=== PATIENT | male | born 1955 | race Caucasian/White ===

== ENCOUNTER 2020-06-22 08:35 | Outpatient (REF) | payer OTHER, SELFPAY ==
[2020-06-22 09:37] LABS: MANUAL DIFF FLAG NO
[2020-06-22 09:44] LABS: Basophils Absolute Auto 0.1 X10*3/uL (0.0-0.2); Basophils Percent Auto 1.2 % (0-2); Eosinophils Absolute Auto 0.3 X10*3/uL (0.0-0.4); Eosinophils Percent Auto 3.3 % (0-4); Hematocrit 45.8 % (42-52); Hemoglobin 14.2 g/dl (14.0-18.0); Imm Gran Abs Auto 0.02 X10*3/uL (0.00-0.03); Imm Gran Pct Auto 0.2 % (0.0-0.4); Lymphocytes Absolute Auto 1.9 X10*3/uL (1.2-4.9); Lymphocytes Percent Auto 22.5 % (20-40); Mean Corpuscular Hemoglobin 27.3 pg (27.0-33.0); Mean Corpuscular Volume 88.1 fL (80-98); Mean Platelet Volume 9.5 fL (9.4-12.4); Monocytes Absolute Auto 0.8 X10*3/uL (0.1-1.2); Monocytes Percent Auto 9.3 % (2-11); Neutrophils Absolute Auto 5.4 X10*3/uL (2.0-8.3); Neutrophils Percent Auto 63.5 % (45-73); Platelet Count 361 X10*3/uL (160-400); White Blood Count 8.6 X10*3/uL (4.8-10.8)
[2020-06-22 10:04] LABS: Glucose Urine UA NEG (NEG); Leukocyte Esterase Urine NEG (NEG); Nitrite Urine NEG (NEG); Specific Gravity - Urine >= 1.030 (1.005-1.025); Urine Blood TRACE (NEG); Urine Ketones NEG (NEG); Urine Protein 2+ MG/DL (NEG-TRACE)
[2020-06-22 10:10] LABS: Appearance Urine CLEAR; Color Urine YELLOW
[2020-06-22 10:12] LABS: Alanine Aminotransferase 42 U/L (0-40); Albumin Level 3.6 g/dL (3.5-5.0); Alkaline Phosphatase 95 U/L (39-117); Anion Gap 11 (12-20); Aspartate Amino Transferase 45 U/L (5-37); Bilirubin Total 0.4 mg/dL (0.0-1.0); Blood Urea Nitrogen 8 mg/dL (9-16); Calcium 8.8 mg/dL (8.4-10.2); Carbon Dioxide 24 mmol/L (22-29); Chloride 108 mmol/L (96-108); Cholesterol 223 mg/dL; Estimated Glomerular Filt Rate > 60; Glucose Fasting 99 mg/dL (60-99); HDL Cholesterol 58 mg/dL; LDL Cholesterol Calculated 113 mg/dl; Potassium 4.4 mmol/L (3.3-5.1); Sodium 139 mmol/L (135-145); Total Protein 6.6 g/dL (6.5-8.0); Triglycerides 264 mg/dL
[2020-06-22 10:58] LABS: RBC Urine 0 /HPF (0); WBC Urine 0-2 /HPF (0-4)
[2020-06-22 11:18] LABS: Vitamin B12 148 pg/mL (200-900)
== END 2020-06-22 08:36 | disposition home or self-care (01) ==
LOC: HO.LAB 08:35
PROVIDERS: Visit Provider Internal Medicine
DX: I10 Essential (primary) hypertension (principal); R41.89 Other symptoms and signs involving cognitive functions and awareness; I63.512 Cerebral infarction due to unspecified occlusion or stenosis of left middle cerebral artery; F17.200 Nicotine dependence, unspecified, uncomplicated; E78.00 Pure hypercholesterolemia, unspecified
CPT/HCPCS: 36415; 80053; 80061; 81001; 81003; 82607; 82746; 84443; 85025

== ENCOUNTER 2022-10-20 17:23 | Inpatient (IN) | payer MEDICARE, MEDICAID, SELFPAY ==
--- NOTE | ~2022-10-20 | CT_ITS ---
EXAMINATION: CT HEAD WITHOUT CONTRAST CT CERVICAL SPINE WITHOUT CONTRAST CLINICAL INFORMATION: Fall. COMPARISON: No prior imaging. TECHNIQUE: Greenhouse Assistant images were obtained. CT imaging of the head and cervical spine was performed without contrast. Data was reformatted into multiplanar images at the acquisition workstation. This CT examination was performed using dose optimization techniques as appropriate, including one or more of the following: Automated exposure control, iterative reconstruction, and adjustment of technique factors (mA and/or kVp) according to patient size (this includes techniques or standardized protocols for targeted exams where dose is matched to indication/reason for exam). Fleischner Society criteria for the followup of incidental pulmonary nodules was implemented if appropriate. DLP: 1374 mGy-cm. 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 Numerous foci of hypoattenuation are also visualized within the periventricular white matter most likely represent a chronic manifestation of small vessel ischemia. Grossly no evidence of acute territorial infarct or hemorrhage. No intracranial mass effect or hydrocephalus. The calvarium and skull base are intact. Mastoid air cells and middle ear cavities are well aerated. No active paranasal sinus disease. 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 There is relatively advanced spondylosis at the atlantodental joint and both C1-C2 articular facet joints. There is also degenerative spondylosis at the junction of the unfused segments at C2-C3 and C4-C5. Grossly no evidence of canal compromise. No evidence of acute cervical spine fracture. No abnormal prevertebral soft tissue swelling. Soft tissues of the neck are unremarkable. Grossly no pathologically enlarged cervical lymph nodes. Lung apices are clear. CT/CT cervical spine wo IV con IMPRESSION: Head: There are chronic changes of an old infarct within the vascular territory of left middle cerebral artery. Numerous chronic small vessel ischemic changes are also visualized within the periventricular white matter. Grossly no evidence of acute territorial infarct or hemorrhage. 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 There is relatively advanced degenerative spondylosis at the atlantodental joint and both C1-C2 articular facet joints. There is also spondylosis at the junction of the unfused segments at C2-C3 and C4-C5. Grossly no evidence of canal compromise. No evidence of acute fracture and no posttraumatic spinal subluxation.
--- NOTE | ~2022-10-20 | CT_ITS ---
EXAMINATION: CT HEAD WITHOUT CONTRAST CT CERVICAL SPINE WITHOUT CONTRAST CLINICAL INFORMATION: Fall. COMPARISON: No prior imaging. TECHNIQUE: Beam Dyer Recessed Vat images were obtained. CT imaging of the head and cervical spine was performed without contrast. Data was reformatted into multiplanar images at the acquisition workstation. This CT examination was performed using dose optimization techniques as appropriate, including one or more of the following: Automated exposure control, iterative reconstruction, and adjustment of technique factors (mA and/or kVp) according to patient size (this includes techniques or standardized protocols for targeted exams where dose is matched to indication/reason for exam). Fleischner Society criteria for the followup of incidental pulmonary nodules was implemented if appropriate. DLP: 1374 mGy-cm. 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 Numerous foci of hypoattenuation are also visualized within the periventricular white matter most likely represent a chronic manifestation of small vessel ischemia. Grossly no evidence of acute territorial infarct or hemorrhage. No intracranial mass effect or hydrocephalus. The calvarium and skull base are intact. Mastoid air cells and middle ear cavities are well aerated. No active paranasal sinus disease. 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 There is relatively advanced spondylosis at the atlantodental joint and both C1-C2 articular facet joints. There is also degenerative spondylosis at the junction of the unfused segments at C2-C3 and C4-C5. Grossly no evidence of canal compromise. No evidence of acute cervical spine fracture. No abnormal prevertebral soft tissue swelling. Soft tissues of the neck are unremarkable. Grossly no pathologically enlarged cervical lymph nodes. Lung apices are clear. 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 Numerous chronic small vessel ischemic changes are also visualized within the periventricular white matter. Grossly no evidence of acute territorial infarct or hemorrhage. 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 There is relatively advanced degenerative spondylosis at the atlantodental joint and both C1-C2 articular facet joints. There is also spondylosis at the junction of the unfused segments at C2-C3 and C4-C5. Grossly no evidence of canal compromise. No evidence of acute fracture and no posttraumatic spinal subluxation.
[2022-10-20 17:30] VITALS: BP 86/57; BP 87/67; PULSE 50; PULSE 85; RESP 23; TEMP 36.5; O2SAT 97; O2SAT 98; BMI 21.1
--- NOTE | 2022-10-20 17:34 | ECG_ITS ---
Test Reason : FALL Blood Pressure : / mmHG Vent. Rate : 086 BPM Atrial Rate : 086 BPM P-R Int : 146 ms QRS Dur : 088 ms QT Int : 396 ms P-R-T Axes : 050 -03 028 degrees QTc Int : 473 ms Normal sinus rhythm Normal ECG No previous ECGs available Referred By: Jose De La Rosa Electronically Signed By:
--- NOTE | 2022-10-20 17:35 | ED.FALL ---
HPI - Fall General Chief Complaint: Fall Stated Complaint: FALL AMS Time Seen by Provider: 10/20/22 17:26 Source: patient and EMS Mode of arrival: EMS Limitations: no limitations History of Present Illness HPI Narrative: 75-year-old male found down after a witnessed fall by bystanders. Patient lost consciousness. Per EMS the patient was initially out of it was unable answer questions blood pressure was in the 70 systolic and heart rate is in the 40s. On arrival here although vitals have improved patient denies loss of conscious denies hitting his head but does admit to drinking every day. He does admit to falling. He states he remembers the entire ordeal but is also very intoxicated. He was seen stumbling before the fall as well. Unknown last tetanus shot. complaint: fall Onset (ago): minute(s) Related Data Allergies Allergy/AdvReac Type Severity Reaction Status Date / Time No Known Allergies Allergy Verified 10/20/22 17:38 Review of Systems Review of Systems: Review of systems: General: Patient denies any fever chills recent illness or falls Musculoskeletal: Denies back pain or body aches or other injuries HEENT: denies headache, runny nose, ear pain Respiratory: denies shortness of breath, cough Cardiovascular: no chest pain or palpitations : denies dysuria, frequency Abdomen: no nausea vomiting denies abdominal pain Extremities: no swelling, no pain Skin: no diaphoresis Yes all other systems are reviewed and are negative Physical Exam Vital Signs: Vital Signs: Last Vital Signs Temp 97.7 F 10/20/22 17:30 Pulse 86 10/20/22 18:11 Resp 23 H 10/20/22 17:30 BP 109/67 10/20/22 18:11 Pulse Ox 98 10/20/22 17:30 O2 Del Method Room Air 10/20/22 17:30 BMI result Body Mass Index 21.1 Neurological exam: CN II- XII tested. Patient is alert and oriented to person place and time. Patient has no dysphagia or dysarthia, denies good vision in all four vision terrell no nystagmus on exam, good strength to upper and lower extremities with normal reflexes to brachioradialis, wrist, patella and achilles. Negative romberg, good finger to nose and heel to shaffer. General: Well-appearing well-nourished in no signs of distress HEENT: Normocephalic atraumatic Neck: No signs of JVD, no masses no tenderness or lymphadenopathy Cardiovascular: Regular rate and rhythm Respiratory: Clear to auscultation bilaterally Abdomen: Soft nontender no masses Extremities: Normal pedal pulses no signs of edema Skin: Abrasions noted to right arm Dry warm no rashes Back: No tenderness full ROM Course Course Course Narrative: CT head and neck are unremarkable patient continues to look well in the ED. patient does have a little bit of low potassium which was repleted AST ALT are elevated his alcohol level is 113 over the patient some Ativan to make sure the patient does not withdrawal blood pressure has improved during the stay here I will give 1/3 L. Patient is of little lactic acidosis well. Medications Administered Discontinued Medications Generic Name Dose Route Start Last Admin Trade Name Freq PRN Reason Stop Dose Admin Diphtheria/Tetanus/Acell Pertussis 0.5 ml 10/20/22 17:38 10/20/22 19:02 Diphth,Pertus(Acell),Tet Adult 0.5 Ml Syringe IM 10/20/22 17:39 0.5 ml .ONCE ONE Administration Sodium Chloride 1,000 mls @ 999 mls/hr 10/20/22 17:45 10/20/22 18:15 Ns IV 10/20/22 18:45 Infused .Q1H1M JULIA Infusion Sodium Chloride 1,000 mls @ 999 mls/hr 10/20/22 18:15 10/20/22 18:16 Ns IV 10/20/22 19:15 999 mls/hr .Q1H1M JULIA Administration Medical Decision Making Medical Decision Making [facility] Narrative: 75 year old alcoholic with witnessed fall seen stumbling with LOC. He is adamant he did not pass out I will give fluids and check labs. Patient otherwise looks okay. I will update his tetanus. Likely intoxication Differential Diagnosis Differential Diagnoses: The differential diagnosis associated with the presentation includes Alcohol intoxication, dyequilibrium, fall, head injury, neck injury, seizure alcohol withdrawal Admission/Observation Consideration of admission/observation: Escalation of care including admission/observation considered Lab Data [facility] Lab Attestation statement: I reviewed the patient's lab results. 10/20/22 17:44 10/20/22 17:44 Labs: Lab Results 10/20/22 10/20/22 10/20/22 Range/Units 17:44 17:44 17:44 WBC 9.9 (4.8-10.8) X10*3/uL RBC 4.34 L (4.60-5.80) X10*6/uL Hgb 14.0 (14.0-18.0) g/dl Hct 40.6 L (42.0-52.0) % MCV 93.5 (80.0-98.0) fL MCH 32.3 (27.0-33.0) pg MCHC 34.5 (31.0-36.0) g/dl RDW 13.8 (11.0-16.0) % Plt Count 269 (160-400) X10*3/uL MPV 8.4 L (9.4-12.4) fL Immature Gran % (Auto) 0.6 H (0.0-0.4) % Neut % (Auto) 61.1 (45-73) % Lymph % (Auto) 27.8 (20-40) % Coal % (Auto) 7.7 (2-11) % Eos % (Auto) 1.6 (0-4) % Baso % (Auto) 1.2 (0-2) % Lymph # (Auto) 2.8 (1.2-4.9) X10*3/uL [place] # (Auto) 0.8 (0.1-1.2) X10*3/uL Eos # (Auto) 0.2 (0.0-0.4) X10*3/uL Baso # (Auto) 0.1 (0.0-0.2) X10*3/uL Abs Immat Gran (auto) 0.06 H (0.00-0.03) X10*3/uL Absolute Neuts (auto) 6.1 (2.0-8.3) x10*3/uL Absolute Nucleated RBC 0.000 (0.0-0.012) X10*3/uL Nucleated RBC % (auto) 0.0 (0.0-0.2) /100WBC PT (10.0-13.1) SEC INR (0.9-1.1) Sodium 130 L (135-145) mmol/L Potassium 3.0 L (3.3-5.1) mmol/L Chloride 98 (96-108) mmol/L Carbon Dioxide 20 L (22-29) mmol/L Anion Gap 15 (12-20) BUN 5 L (9-16) mg/dL Creatinine 0.88 (0.5-1.4) mg/dL Estim Creat Clear Calc 60.6 Estimated GFR > 60 Random Glucose 101 (60-115) mg/dL Lactic Acid 2.3 H* (0.5-2.0) mmol/L Calcium 8.3 L (8.4-10.2) mg/dL Total Bilirubin 0.6 (0.0-1.0) mg/dL Direct Bilirubin 0.2 (0.0-0.5) mg/dL AST 91 H (5-37) U/L ALT 67 H (0-40) U/L Alkaline Phosphatase 131 H (39-117) U/L Total Protein 5.6 L (6.5-8.0) g/dL Albumin 3.2 L (3.5-5.0) g/dL Lipase 34 (8-78) U/L Ethyl Alcohol 113 mg/dL COVID-19 (JACKIE) (Negative) COVID-19 Clin Com 10/20/22 10/20/22 Range/Units 17:44 17:44 WBC (4.8-10.8) X10*3/uL RBC (4.60-5.80) X10*6/uL Hgb (14.0-18.0) g/dl Hct (42.0-52.0) % MCV (80.0-98.0) fL MCH (27.0-33.0) pg MCHC (31.0-36.0) g/dl RDW (11.0-16.0) % Plt Count (160-400) X10*3/uL MPV (9.4-12.4) fL Immature Gran % (Auto) (0.0-0.4) % Neut % (Auto) (45-73) % Lymph % (Auto) (20-40) % Coal % (Auto) (2-11) % Eos % (Auto) (0-4) % Baso % (Auto) (0-2) % Lymph # (Auto) (1.2-4.9) X10*3/uL [place] # (Auto) (0.1-1.2) X10*3/uL Eos # (Auto) (0.0-0.4) X10*3/uL Baso # (Auto) (0.0-0.2) X10*3/uL Abs Immat Gran (auto) (0.00-0.03) X10*3/uL Absolute Neuts (auto) (2.0-8.3) x10*3/uL Absolute Nucleated RBC (0.0-0.012) X10*3/uL Nucleated RBC % (auto) (0.0-0.2) /100WBC PT 10.0 (10.0-13.1) SEC INR 0.9 (0.9-1.1) Sodium (135-145) mmol/L Potassium (3.3-5.1) mmol/L Chloride (96-108) mmol/L Carbon Dioxide (22-29) mmol/L Anion Gap (12-20) BUN (9-16) mg/dL Creatinine (0.5-1.4) mg/dL Estim Creat Clear Calc Estimated GFR Random Glucose (60-115) mg/dL Lactic Acid (0.5-2.0) mmol/L Calcium (8.4-10.2) mg/dL Total Bilirubin (0.0-1.0) mg/dL Direct Bilirubin (0.0-0.5) mg/dL AST (5-37) U/L ALT (0-40) U/L Alkaline Phosphatase (39-117) U/L Total Protein (6.5-8.0) g/dL Albumin (3.5-5.0) g/dL Lipase (8-78) U/L Ethyl Alcohol mg/dL COVID-19 (JACKIE) Negative (Negative) COVID-19 Clin Com See Note Independent Interpretation I performed an independent interpretation of an: EKG, Plain X-Ray and CT Scan Interpretation: Rate 86 normal sinus rhythm normal intervals no signs of ischemia interpreted by me External Record Review External record reviewed: Inpatient record Name unknown on a arrival. Discharge Plan Discharge Clinical Impression: Syncope, Alcohol withdrawal, Fall Patient Disposition: Admitted As Inpatient
[2022-10-20] MEDS: 0.9 % Sodium Chloride 1,000 ML 999 ML IV ×3 (17:39→20:04)
[2022-10-20 17:52] LABS: MANUAL DIFF FLAG NO
[2022-10-20 17:58] LABS: Basophils Absolute Auto 0.1 X10*3/uL (0.0-0.2); Basophils Percent Auto 1.2 % (0-2); Eosinophils Absolute Auto 0.2 X10*3/uL (0.0-0.4); Eosinophils Percent Auto 1.6 % (0-4); Hematocrit 40.6 % (42.0-52.0); Imm Gran Abs Auto 0.06 X10*3/uL (0.00-0.03); Imm Gran Pct Auto 0.6 % (0.0-0.4); Lymphocytes Absolute Auto 2.8 X10*3/uL (1.2-4.9); Lymphocytes Percent Auto 27.8 % (20-40); Mean Corpuscular HGB Conc 34.5 g/dl (31.0-36.0); Mean Corpuscular Hemoglobin 32.3 pg (27.0-33.0); Mean Corpuscular Volume 93.5 fL (80.0-98.0); Mean Platelet Volume 8.4 fL (9.4-12.4); Monocytes Absolute Auto 0.8 X10*3/uL (0.1-1.2); Monocytes Percent Auto 7.7 % (2-11); Neutrophils Absolute Auto 6.1 x10*3/uL (2.0-8.3); Neutrophils Percent Auto 61.1 % (45-73); Platelet Count 269 X10*3/uL (160-400); Red Blood Count 4.34 X10*6/uL (4.60-5.80); Red Cell Distribution Width 13.8 % (11.0-16.0); White Blood Count 9.9 X10*3/uL (4.8-10.8)
[2022-10-20 18:04] LABS: INTERNATIONAL NORM RATIO 0.9 (0.9-1.1)
[2022-10-20 18:10] LABS: Alanine Aminotransferase 67 U/L (0-40); Albumin Level 3.2 g/dL (3.5-5.0); Alkaline Phosphatase 131 U/L (39-117); Anion Gap 15 (12-20); Aspartate Amino Transferase 91 U/L (5-37); Bilirubin Direct 0.2 mg/dL (0.0-0.5); Bilirubin Total 0.6 mg/dL (0.0-1.0); Blood Urea Nitrogen 5 mg/dL (9-16); COVID-19 Test Negative (Negative); Calcium 8.3 mg/dL (8.4-10.2); Carbon Dioxide 20 mmol/L (22-29); Chloride 98 mmol/L (96-108); Creatinine Clr Calc Pharmacy 60.6; Estimated Glomerular Filt Rate > 60; Ethanol 113 mg/dL; Glucose Random 101 mg/dL (60-115); IDNOW Serial# 08D9AD1C; Lactic Acid 2.3 mmol/L (0.5-2.0); Lipase 34 U/L (8-78); Sodium 130 mmol/L (135-145); Total Protein 5.6 g/dL (6.5-8.0)
[2022-10-20 18:11] VITALS: BP 109/67; PULSE 86
[2022-10-20] MEDS: Diphth,Pertus(ACell),Tet Adult 0.5 ML SYRINGE IM (19:02)
[2022-10-20 19:52] LABS: Reflex Lactate? Lactic Acid Added
[2022-10-20] MEDS: Thiamine HCL 100 MG in 0.9 % Sodium Chloride 100 ML 202 MG IV (20:04)
[2022-10-20] MEDS: Potassium Chloride Packet 20 MEQ PACKET 40 MEQ PO (20:05)
[2022-10-20] MEDS: PHENobarbitaL sodium 130 MG/ML IM ONCE 296 MG IM (20:05)
[2022-10-20 20:11] LABS: Magnesium 1.7 mg/dL (1.6-2.6)
[2022-10-20 20:21] VITALS: BP 111/81; PULSE 99; RESP 17; TEMP 36.4; O2SAT 98
--- NOTE | 2022-10-20 20:38 | PHA.MEDREC ---
Med rec completed by pharmacy claim history only. Pipelaying Fitter used and patient unable to provide any information. Will attempt to reach out to patients primary care doctor. Pharmacy Consult ? Medication Reconciliation Pharmacy has completed the medication reconciliation.
[2022-10-20 20:45] LABS: ~Lactic Acid-LAB USE ONLY 1.5 mmol/L (0.5-2.0)
--- NOTE | 2022-10-20 20:58 | PM.IMHP ---
History of Present Illness Date of Service: 10/20/22 Attending physician on admission: Ran Sanchez Chief Complaint: Public intoxication, fall with LOC Pt is a 67-year-old male with a PMH significant for?HTN and multiple 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 HPI is limited due to patient's mentation. According to EMS patient was seen by bystanders stumbling around when he fell on the sidewalk and lost consciousness. EMS report patient was not initially on able to answer questions and was hypotensive with systolic BP in the 70s and heart rate in 40s. Patient's family note that he drinks beer daily though the exact amount is unknown. They also report patient had multiple CVAs while in [place] 12-13 years ago. Pt has since had a mild speech deficit and residual left leg weakness. Patient is also a noted current everyday smoker of around a pack a day. Patient's healthcare proxy is his grandson Bronson ([phone]) who reports he has been trying to get his grandfather to cut back on his drinking. He would be appreciative for any Addiction counseling or services that could be provided for his grandfather. Patient currently complains only of right elbow pain. Denies chest pain/pressure, palpitations. No shortness of breath. Chronic cough. No headache, lightheadedness, dizziness. Denies fever, chills, nausea, vomiting, diarrhea, abdominal pain. Patient denies a past history of alcohol withdrawal or chronic upper extremity tremors in the morning. In the ED labs were significant for sodium of 130, potassium of 3.0, initial lactic acid of 2.3, with repeat of 1.5, AST of 91, ALT of 67, alk-phos of 131. Renal function WNL. Magnesium WNL at 1.7. Ethyl alcohol level was 113 at time of presentation. CXR pending. CT of head showed no evidence of acute territorial infarct or hemorrhage, but showed chronic changes of an old infarct within the vascular territory the left MCA. 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 ?EKG demonstrated normal sinus rhythm without evidence of ST elevations or depressions. Pt was treated with IVF, DTaP, lorazepam, IVF, thiamine, potassium chloride, and started on phenobarb protocol. Pt will be admitted to the hospital under observation on telemetry for treatment and further workup of toxic encephalopathy likely secondary to alcohol ingestion. 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 Cognitive impairment Depression Left-sided low back pain with left-sided sciatica Primary insomnia Pure hypercholesterolemia Smoker Family History Father Medical history unknown Mother Medical history unknown Surgical History History of cataract surgery Social History Housing: House Alcohol intake: current Alcohol intake frequency: a few times a week Patient Tobacco Use Status: Current everyday Tobacco user Tobacco use type: Cigarette Cigarettes Per Day: 10 e-Cigarette/Vaping Use: Never Used Advance Directives: No Advance Directives Information Provided: No service: No Meds Allergies Allergy/AdvReac Type Severity Reaction Status Date / Time No Known Allergies Allergy Unverified 10/20/22 17:38 Active Medications: Current Medications Thiamine HCl 100 mg/ Sodium (Chloride) 101 mls @ 202 mls/hr IV DAILY JULIA Last Admin: 10/20/22 20:04 Dose: 202 mls/hr Pharmacy Consult (Consult Rx Perform Med Rec) 1 each MISCELLANE ONCE PRN PRN Reason: Consult order Pharmacy Consult (Consult Rx Etoh Phenob Im/Po) 1 each MISCELLANE ONCE PRN; Protocol PRN Reason: Consult order Phenobarbital (Phenobarbital 15 Mg Tablet) 45 mg PO BID JULIA; Protocol Stop: 10/22/22 21:01 Phenobarbital (Phenobarbital 15 Mg Tablet) 15 mg PO BID JULIA; Protocol Stop: 10/24/22 21:01 Phenobarbital (Phenobarbital 15 Mg Tablet) 15 mg PO DAILY JULIA; Protocol Stop: 10/26/22 09:01 Phenobarbital Sodium (Phenobarbital Sodium 130 Mg/Ml Vial Im Q3hx2) 222 mg IM Q3H JULIA; Protocol Stop: 10/21/22 02:01 Physical Exam Vital Signs and Narrative: Vital Signs: Last Vital Signs Temp 97.6 F 10/20/22 20:21 Pulse 99 10/20/22 20:21 Resp 17 10/20/22 20:21 BP 111/81 10/20/22 20:21 Pulse Ox 98 10/20/22 20:21 O2 Del Method Room Air 10/20/22 20:21 BMI result Body Mass Index 21.1 Constitutional: Alert, confused, dishelved with poor hygiene, in no acute distress. Mental Status: Oriented to person and place, not to time or situation. Eyes: Pupils are equal, round, and reactive to light. Ear, Nose, and Throat: Oropharynx clear, mucous membranes moist. Ears and nose without deformities. Trachea midline. Pt lacking teeth. No tongue fasciculation noted. Respiratory: Clear to auscultation bilaterally. No wheezing, rales, or rhonchi. Cardiovascular: S1, S2 regular. No murmurs, rubs, or gallops. Gastrointestinal: Abdomen soft, non-tender, non-distended. Normal bowel sounds. Neurologic: Cranial nerves II-XII are grossly intact bilaterally. No focal neurological deficits. Moves all extremities spontaneously. No upper extremity tremors noted. Skin: Skin abrasions to right elbow. Musculoskeletal: No cyanosis or clubbing. Extremities: No edema. Psychiatric: Normal mood, cooperative. Results Labs 10/20/22 17:44 10/20/22 17:44 Labs: Laboratory Results - last 24 hr 10/20/22 10/20/22 10/20/22 17:44 17:44 17:44 MCV 93.5 MCH 32.3 MCHC 34.5 RDW 13.8 Plt Count 269 MPV 8.4 L Immature Gran % (Auto) 0.6 H Neut % (Auto) 61.1 Lymph % (Auto) 27.8 [place] % (Auto) 7.7 Eos % (Auto) 1.6 Baso % (Auto) 1.2 Lymph # (Auto) 2.8 [place] # (Auto) 0.8 Eos # (Auto) 0.2 Baso # (Auto) 0.1 Abs Immat Gran (auto) 0.06 H Absolute Neuts (auto) 6.1 Absolute Nucleated RBC 0.000 Nucleated RBC % (auto) 0.0 PT INR Anion Gap 15 Estim Creat Clear Calc 60.6 Estimated GFR > 60 Random Glucose 101 Lactic Acid 2.3 H* Lactic Acid F/U @ 2Hr Calcium 8.3 L Magnesium Total Bilirubin 0.6 Direct Bilirubin 0.2 AST 91 H ALT 67 H Alkaline Phosphatase 131 H Total Protein 5.6 L Albumin 3.2 L Lipase 34 Ethyl Alcohol 113 COVID-19 (JACKIE) COVID-19 Clin Com 10/20/22 10/20/22 10/20/22 17:44 17:44 19:50 MCV MCH MCHC RDW Plt Count MPV Immature Gran % (Auto) Neut % (Auto) Lymph % (Auto) [place] % (Auto) Eos % (Auto) Baso % (Auto) Lymph # (Auto) [place] # (Auto) Eos # (Auto) Baso # (Auto) Abs Immat Gran (auto) Absolute Neuts (auto) Absolute Nucleated RBC Nucleated RBC % (auto) PT 10.0 INR 0.9 Anion Gap Estim Creat Clear Calc Estimated GFR Random Glucose Lactic Acid Lactic Acid F/U @ 2Hr Calcium Magnesium 1.7 Total Bilirubin Direct Bilirubin AST ALT Alkaline Phosphatase Total Protein Albumin Lipase Ethyl Alcohol COVID-19 (JACKIE) Negative COVID-19 M[facility]i Com See Note 10/20/22 20:13 MCV MCH MCHC RDW Plt Count MPV Immature Gran % (Auto) Neut % (Auto) Lymph % (Auto) [place] % (Auto) Eos % (Auto) Baso % (Auto) Lymph # (Auto) [place] # (Auto) Eos # (Auto) Baso # (Auto) Abs Immat Gran (auto) Absolute Neuts (auto) Absolute Nucleated RBC Nucleated RBC % (auto) PT INR Anion Gap Estim Creat Clear Calc Estimated GFR Random Glucose Lactic Acid Lactic Acid F/U @ 2Hr 1.5 Calcium Magnesium Total Bilirubin Direct Bilirubin AST ALT Alkaline Phosphatase Total Protein Albumin Lipase Ethyl Alcohol COVID-19 (JACKIE) COVID-19 Clin Com Imaging Radiologist's Impressions: Impressions Cervical Spine CT 10/20/22 18:46 IMPRESSION: Head: There are chronic changes of an old infarct within the vascular territory of left middle cerebral artery. Numerous chronic small vessel ischemic changes are also visualized within the periventricular white matter. Grossly no evidence of acute territorial infarct or hemorrhage. 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 There is relatively advanced degenerative spondylosis at the atlantodental joint and both C1-C2 articular facet joints. There is also spondylosis at the junction of the unfused segments at C2-C3 and C4-C5. Grossly no evidence of canal compromise. No evidence of acute fracture and no posttraumatic spinal subluxation. Head CT 10/20/22 18:46 IMPRESSION: Head: There are chronic changes of an old infarct within the vascular territory of left middle cerebral artery. Numerous chronic small vessel ischemic changes are also visualized within the periventricular white matter. Grossly no evidence of acute territorial infarct or hemorrhage. 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 There is relatively advanced degenerative spondylosis at the atlantodental joint and both C1-C2 articular facet joints. There is also spondylosis at the junction of the unfused segments at C2-C3 and C4-C5. Grossly no evidence of canal compromise. No evidence of acute fracture and no posttraumatic spinal subluxation. Assessment and Plan (1) Alcohol intoxication delirium with moderate or severe use disorder: Status: Acute Plan Pt is a 67-year-old male with a PMH significant for?HTN and multiple 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 HPI is limited due to patient's mentation. According to EMS patient was seen by bystanders stumbling around when he fell on the sidewalk and lost consciousness. Pt will be admitted to the hospital under observation on telemetry for treatment and further workup of toxic encephalopathy likely secondary to alcohol ingestion. Toxic encephalopathy Likely secondary to alcohol use, less likely stroke or seizure CT of head negative for acute territorial infarct or hemorrhage Patient drinks an unknown number of beers daily, present with ethyl alcohol level of 113 Patient placed on phenobarb protocol Daily multivitamin, folic acid, thiamine, famotidine Follow lytes, Mag, BMP CIWA scale Addiction Medicine consult Monitor on telemetry Lactic acidosis, resolved Initial lactic acid 2.3 with repeat WML at 1.5 Likely secondary to alcohol consumption, not sepsis Pt resusitated with IVF Electrolyte abnormalities Patient with mild hyponatremia, hypokalemia Most likely secondary to reduced p.o. intake Patient resuscitated with IVF Follow BMP Transaminitis Patient with AST of 91, ALT 67, alk-phos 131 Likely secondary to alcohol use disorder Patient should follow up outpatient with ultrasound of right upper quadrant Hx of CVA Continue statin, clopidogrel HTN BP has been soft, hold anti-hypertensive for now Resume as necessary Mood disorder Continue citalopram Full Code Attending:?Dr. Sanchez DVT Prophylaxis: Lovenox Patient will be admitted to the hospital under observation on telemetry for toxic encephalopathy likely secondary to alcohol use. Time Spent With Patient Time: Total time managing care of this patient today ____ minutes. Quality Stroke Does the patient have a stroke diagnosis?: No VTE Prior VTE?: No VTE Risk Level:: Medical - moderate - high VTE Device Contraindication: Treatment Not Indicated VTE Drug Contraindication: N/A - Med Ordered
[2022-10-20 21:16] LABS: Appearance Urine Clear; Color Urine Yellow; Glucose Urine UA Negative (Negative); Leukocyte Esterase Urine Negative (Negative); Nitrite Urine Negative (Negative); PH 5.5 (5.0-9.0); Specific Gravity - Urine <= 1.005 (1.005-1.025); Urine Blood Negative (Negative); Urine Ketones Negative (Negative); Urine Protein Negative (Neg-Trace)
[2022-10-20 21:21] LABS: Bacteria Urine None Seen (None Seen); Hyaline Casts Urine 0-2 /LPF (0-2); RBC Urine 0-2 /HPF (0-2); Squamous Epithelial Cell Urine 0-2 /HPF (0-2); WBC Urine 0-5 /HPF (0-5)
[2022-10-20 21:24] LABS: Amphetamine Screen Urine Not Detected (Not Detect); Barbiturates, Urine Not Detected (Not Detect); Benzodiazepines Screen Urine Not Detected (Not Detect); Cannabinoid Screen Urine Not Detected (Not Detect); Cocaine Screen Urine Not Detected (Not Detect); Fentanyl, urine Not Detected (Not Detect); Opiate Screen Urine Not Detected (Not Detect); Phencyclidine Screen Urine Not Detected (Not Detect)
[2022-10-20] MEDS: Enoxaparin Sodium 40 MG/0.4 ML SYRINGE SUBCUT (22:27)
[2022-10-20] MEDS: Famotidine 20 MG TABLET PO (22:27)
[2022-10-20] MEDS: Nicotine 14 MG PATCH.TD24 TRANSDERMA (22:27)
[2022-10-20] MEDS: Atorvastatin Calcium 10 MG TABLET PO (22:27)
[2022-10-20 22:34] VITALS: BP 118/81; PULSE 96; RESP 19; O2SAT 97
--- NOTE | 2022-10-20 22:42 | PC.NURSE ---
Report to Anitha MAGALLON on 3S.
[2022-10-20] MEDS: 0.9 % Sodium Chloride Flush 3 ML SYRINGE IVFLUSH (23:38)
[2022-10-20] MEDS: PHENobarbitaL sodium 130 MG/ML VIAL IM Q3Hx2 222 MG IM (23:39)
[2022-10-20 23:50] VITALS: BP 125/78; PULSE 99; RESP 18; TEMP 36.9; O2SAT 98
[2022-10-21 00:45] LABS: Folate 8.8 ng/mL (> or = 4.0); Vitamin B12 221 pg/mL (200-900)
[2022-10-21 00:48] VITALS: BMI 21.5
[2022-10-21] MEDS: PHENobarbitaL sodium 130 MG/ML VIAL IM Q3Hx2 222 MG IM (02:13)
[2022-10-21 03:28] VITALS: BP 98/56; PULSE 78; RESP 18; TEMP 36.1; O2SAT 97
[2022-10-21 05:44] LABS: MANUAL DIFF FLAG NO
[2022-10-21 05:49] LABS: Basophils Absolute Auto 0.1 X10*3/uL (0.0-0.2); Eosinophils Absolute Auto 0.2 X10*3/uL (0.0-0.4); Eosinophils Percent Auto 2.3 % (0-4); Hematocrit 37.4 % (42.0-52.0); Hemoglobin 12.7 g/dl (14.0-18.0); Imm Gran Abs Auto 0.04 X10*3/uL (0.00-0.03); Imm Gran Pct Auto 0.4 % (0.0-0.4); Lymphocytes Absolute Auto 3.1 X10*3/uL (1.2-4.9); Lymphocytes Percent Auto 29.8 % (20-40); Mean Corpuscular Volume 94.2 fL (80.0-98.0); Mean Platelet Volume 8.6 fL (9.4-12.4); Monocytes Absolute Auto 0.9 X10*3/uL (0.1-1.2); Monocytes Percent Auto 8.8 % (2-11); Neutrophils Percent Auto 57.7 % (45-73); Platelet Count 253 X10*3/uL (160-400); Red Blood Count 3.97 X10*6/uL (4.60-5.80); Red Cell Distribution Width 14.1 % (11.0-16.0); White Blood Count 10.4 X10*3/uL (4.8-10.8)
[2022-10-21 06:06] LABS: Anion Gap 9 (12-20); Blood Urea Nitrogen 4 mg/dL (9-16); Calcium 8.4 mg/dL (8.4-10.2); Carbon Dioxide 23 mmol/L (22-29); Chloride 109 mmol/L (96-108); Creatinine Clr Calc Pharmacy 81.5; Estimated Glomerular Filt Rate > 60; Glucose Random 81 mg/dL (60-115); Sodium 137 mmol/L (135-145)
[2022-10-21 06:53] VITALS: BP 101/64; PULSE 68; RESP 18; TEMP 36.6; O2SAT 97
[2022-10-21 07:48] LABS: Alanine Aminotransferase 54 U/L (0-40); Albumin Level 2.6 g/dL (3.5-5.0); Alkaline Phosphatase 117 U/L (39-117); Aspartate Amino Transferase 85 U/L (5-37); Bilirubin Direct 0.4 mg/dL (0.0-0.5); Bilirubin Total 1.1 mg/dL (0.0-1.0); Total Protein 4.4 g/dL (6.5-8.0)
[2022-10-21] MEDS: Clopidogrel Bisulfate 75 MG TABLET PO (08:43)
[2022-10-21] MEDS: PHENobarbitaL 15 MG TABLET 45 MG PO ×2 (08:43→20:36)
[2022-10-21] MEDS: Nicotine 14 MG PATCH.TD24 TRANSDERMA (08:43)
[2022-10-21] MEDS: Multivitamin TABLET 1 TAB PO (08:43)
[2022-10-21] MEDS: Thiamine HCL 100 MG in 0.9 % Sodium Chloride 100 ML 202 MG IV (08:43)
[2022-10-21] MEDS: Folic Acid 1 MG TABLET PO (08:43)
[2022-10-21] MEDS: Escitalopram Oxalate 10 MG TABLET PO (08:43)
[2022-10-21] MEDS: Famotidine 20 MG TABLET PO ×2 (08:43→20:36)
[2022-10-21] MEDS: 0.9 % Sodium Chloride Flush 3 ML SYRINGE IVFLUSH ×3 (08:53→20:37)
[2022-10-21 12:00] VITALS: TEMP 36.1
--- NOTE | 2022-10-21 13:22 | MHC.CM.PN ---
TAVO 10/21/22 MALE 67 DX AMS Patient lives alone. He uses a walker for unsteady gait. He is independent with ADLs. DP home self care family transport.
--- NOTE | 2022-10-21 15:50 | P.PNIM_ITS ---
Subjective Subjective Date of Service: 10/21/22 Interval History: seen and examined this morning follow up for AMS awake, alert, appears confused and despite assistance of director stars unable to provide any significant medical history denies any abdominal pain, shortness of breath, chest pain Review of Systems Review of Systems: No all other systems are reviewed and are negative Constitutional Constitutional: Denies chills and Denies fever(s) ENT Ears, Nose, Mouth, and Throat: Denies dizziness Cardiovascular Cardiovascular: Denies chest pain, Denies palpitations and Denies dyspnea Respiratory Respiratory: Denies cough and Denies dyspnea Gastrointestinal Gastrointestinal: Denies abdominal pain, Denies nausea and Denies vomiting Neurologic Neurologic: Reports confusion and Denies dizziness Psychiatric Psychiatric: Reports confusion Endocrine Endocrine: Denies palpitations Physical Exam Vital Signs: Vital Signs: Last Vital Signs Temp 97 F 10/21/22 12:00 Pulse 68 10/21/22 06:53 Resp 18 10/21/22 06:53 BP 101/64 10/21/22 06:53 Pulse Ox 97 10/21/22 06:53 O2 Del Method Room Air 10/21/22 06:53 BMI result Body Mass Index 21.5 Const: General: comfortable, no acute distress, alert, awake and confusion Orientation/consciousness: oriented to person and confusion Resp: Effort & Inspection: normal respiratory effort, able to speak in complete sentences, no respiratory distress and no use of accessory muscles Cardio: Rate: regular rate Heart sounds: S1 abnormal and S2 abnormal GI: Inspection: No distended Palpation (GI): Soft to palpation and nontender Neuro: General: oriented to person, moves all extremities, CN's II-XI intact bilaterally and confusion Extrem: General: Yes no pedal edema Objective Data Active Medications Acetaminophen (Acetaminophen 325 Mg Tablet) 650 mg PO Q6H PRN PRN Reason: Pain, Mild (Pain Scale 1-3) Atorvastatin Calcium (Atorvastatin Calcium 10 Mg Tablet) 10 mg PO BEDTIME [facility] Last Admin: 10/20/22 22:27 Dose: 10 mg Documented By: MATIAS Clopidogrel Bisulfate (Clopidogrel Bisulfate 75 Mg Tablet) 75 mg PO DAILY [facility] Last Admin: 10/21/22 08:43 Dose: 75 mg Documented By: TAYLOR Enoxaparin Sodium (Enoxaparin Sodium 40 Mg/0.4 Ml Syringe) 40 mg SUBCUT Q24H [facility] Last Admin: 10/20/22 22:27 Dose: 40 mg Documented By: JEREMI-AJITH Escitalopram Oxalate (Escitalopram Oxalate 10 Mg Tablet) 10 mg PO DAILY [facility] Last Admin: 10/21/22 08:43 Dose: 10 mg Documented By: TAYLOR Famotidine (Famotidine 20 Mg Tablet) 20 mg PO BID [facility] Last Admin: 10/21/22 08:43 Dose: 20 mg Documented By: TAYLOR Folic Acid (Folic Acid 1 Mg Tablet) 1 mg PO DAILY [facility] Stop: 10/24/22 08:59 Last Admin: 10/21/22 08:43 Dose: 1 mg Documented By: TAYLOR Thiamine HCl 100 mg/ Sodium (Chloride) 101 mls @ 202 mls/hr IV DAILY [facility] Last Infusion: 10/21/22 09:26 Dose: 0 mls/hr Documented By: TAYLOR Melatonin (Melatonin 3 Mg Tablet) 6 mg PO BEDTIME PRN PRN Reason: Insomnia Multivitamins/Vitamin C (Multivitamin Tablet) 1 tab PO DAILY [facility] Stop: 10/24/22 08:59 Last Admin: 10/21/22 08:43 Dose: 1 tab Documented By: TAYLOR Nicotine (Nicotine 14 Mg Patch.Td24) 14 mg TRANSDERMA DAILY [facility] Last Admin: 10/21/22 08:43 Dose: 14 mg Documented By: TAYLOR Ondansetron HCl (Ondansetron Hcl 4 Mg/2 Ml Vial) 4 mg IVPUSH Q8H PRN PRN Reason: Nausea and Vomiting Pharmacy Consult (Consult Rx Perform Med Rec) 1 each MISCELLANE ONCE PRN PRN Reason: Consult order Pharmacy Consult (Consult Rx Etoh Phenob Im/Po) 1 each MISCELLANE ONCE PRN; Protocol PRN Reason: Consult order Phenobarbital (Phenobarbital 15 Mg Tablet) 45 mg PO BID [facility]; Protocol Stop: 10/22/22 21:01 Last Admin: 10/21/22 08:43 Dose: 45 mg Documented By: TAYLOR Phenobarbital (Phenobarbital 15 Mg Tablet) 15 mg PO BID [facility]; Protocol Stop: 10/24/22 21:01 Phenobarbital (Phenobarbital 15 Mg Tablet) 15 mg PO DAILY [facility]; Protocol Stop: 10/26/22 09:01 Sodium Chloride (0.9 % Sodium Chloride Flush 3 Ml Syringe) [facility] Admin: 10/21/22 15:17 Dose: 3 ml Documented By: TAYLOR Labs 10/21/22 05:36 10/21/22 05:36 Labs: Laboratory Results - last 24 hr 10/20/22 10/20/22 10/20/22 17:44 17:44 17:44 MCV 93.5 MCH 32.3 MCHC 34.5 RDW 13.8 Plt Count 269 MPV 8.4 L Immature Gran % (Auto) 0.6 H Neut % (Auto) 61.1 Lymph % (Auto) 27.8 Forrest % (Auto) 7.7 Eos % (Auto) 1.6 Baso % (Auto) 1.2 Lymph # (Auto) 2.8 Forrest # (Auto) 0.8 Eos # (Auto) 0.2 Baso # (Auto) 0.1 Abs Immat Gran (auto) 0.06 H Absolute Neuts (auto) 6.1 Absolute Nucleated RBC 0.000 Nucleated RBC % (auto) 0.0 PT INR Anion Gap 15 Estim Creat Clear Calc 60.6 Estimated GFR > 60 Random Glucose 101 Lactic Acid 2.3 H* Lactic Acid F/U @ 2Hr Calcium 8.3 L Magnesium Total Bilirubin 0.6 Direct Bilirubin 0.2 AST 91 H ALT 67 H Alkaline Phosphatase 131 H Total Protein 5.6 L Albumin 3.2 L Lipase 34 Vitamin B12 Folate Urine Color Urine Appearance Urine pH Ur Specific [place] Urine Protein Urine Glucose (UA) Urine Ketones Urine Blood Urine Nitrite Ur Leukocyte Esterase Urine RBC Urine WBC Ur Squamous Epith Cells Urine Bacteria Hyaline Casts Urine Opiates Screen Urine Fentanyl Screen Ur Barbiturates Screen Ur Phencyclidine Scrn Ur Amphetamines Screen U Benzodiazepines Scrn Urine Cocaine Screen U Marijuana (THC) Screen Ethyl Alcohol 113 COVID-19 (JACKIE) COVID-19 Clin Com 10/20/22 10/20/22 10/20/22 17:44 17:44 19:50 MCV MCH MCHC RDW Plt Count MPV Immature Gran % (Auto) Neut % (Auto) Lymph % (Auto) [place] % (Auto) Eos % (Auto) Baso % (Auto) Lymph # (Auto) Forrest # (Auto) Eos # (Auto) Baso # (Auto) Abs Immat Gran (auto) Absolute Neuts (auto) Absolute Nucleated RBC Nucleated RBC % (auto) PT 10.0 INR 0.9 Anion Gap Estim Creat Clear Calc Estimated GFR Random Glucose Lactic Acid Lactic Acid F/U @ 2Hr Calcium Magnesium 1.7 Total Bilirubin Direct Bilirubin AST ALT Alkaline Phosphatase Total Protein Albumin Lipase Vitamin B12 Folate Urine Color Urine Appearance Urine pH Ur Specific [place] Urine Protein Urine Glucose (UA) Urine Ketones Urine Blood Urine Nitrite Ur Leukocyte Esterase Urine RBC Urine WBC Ur Squamous Epith Cells Urine Bacteria Hyaline Casts Urine Opiates Screen Urine Fentanyl Screen Ur Barbiturates Screen Ur Phencyclidine Scrn Ur Amphetamines Screen U Benzodiazepines Scrn Urine Cocaine Screen U Marijuana (THC) Screen Ethyl Alcohol COVID-19 (JACKIE) Negative COVID-19 Clin Com See Note 10/20/22 10/20/22 10/20/22 20:13 21:09 21:09 MCV MCH MCHC RDW Plt Count MPV Immature Gran % (Auto) Neut % (Auto) Lymph % (Auto) Forrest % (Auto) Eos % (Auto) Baso % (Auto) Lymph # (Auto) [place] # (Auto) Eos # (Auto) Baso # (Auto) Abs Immat Gran (auto) Absolute Neuts (auto) Absolute Nucleated RBC Nucleated RBC % (auto) PT INR Anion Gap Estim Creat Clear Calc Estimated GFR Random Glucose Lactic Acid Lactic Acid F/U @ 2Hr 1.5 Calcium Magnesium Total Bilirubin Direct Bilirubin AST ALT Alkaline Phosphatase Total Protein Albumin Lipase Vitamin B12 Folate Urine Color Yellow Urine Appearance Clear Urine pH 5.5 Ur Specific [place] <= 1.005 Urine Protein Negative Urine Glucose (UA) Negative Urine Ketones Negative Urine Blood Negative Urine Nitrite Negative Ur Leukocyte Esterase Negative Urine RBC 0-2 Urine WBC 0-5 Ur Squamous Epith Cells 0-2 Urine Bacteria None Seen Hyaline Casts 0-2 Urine Opiates Screen Not Detected Urine Fentanyl Screen Not Detected Ur Barbiturates Screen Not Detected Ur Phencyclidine Scrn Not Detected Ur Amphetamines Screen Not Detected U Benzodiazepines Scrn Not Detected Urine Cocaine Screen Not Detected U Marijuana (THC) Screen Not Detected Ethyl Alcohol COVID-19 (JACKIE) COVID-19 Clin Com 10/20/22 10/21/22 10/21/22 23:25 05:36 05:36 MCV 94.2 MCH 32.0 MCHC 34.0 RDW 14.1 Plt Count 253 MPV 8.6 L Immature Gran % (Auto) 0.4 Neut % (Auto) 57.7 Lymph % (Auto) 29.8 Forrest % (Auto) 8.8 Eos % (Auto) 2.3 Baso % (Auto) 1.0 Lymph # (Auto) 3.1 Forrest # (Auto) 0.9 Eos # (Auto) 0.2 Baso # (Auto) 0.1 Abs Immat Gran (auto) 0.04 H Absolute Neuts (auto) 6.0 Absolute Nucleated RBC 0.000 Nucleated RBC % (auto) 0.0 PT INR Anion Gap 9 L Estim Creat Clear Calc 81.5 Estimated GFR > 60 Random Glucose 81 Lactic Acid Lactic Acid F/U @ 2Hr Calcium 8.4 Magnesium Total Bilirubin 1.1 H Direct Bilirubin 0.4 AST 85 H ALT 54 H Alkaline Phosphatase 117 Total Protein 4.4 L Albumin 2.6 L Lipase Vitamin B12 221 Folate 8.8 Urine Color Urine Appearance Urine pH Ur Specific [place] Urine Protein Urine Glucose (UA) Urine Ketones Urine Blood Urine Nitrite Ur Leukocyte Esterase Urine RBC Urine WBC Ur Squamous Epith Cells Urine Bacteria Hyaline Casts Urine Opiates Screen Urine Fentanyl Screen Ur Barbiturates Screen Ur Phencyclidine Scrn Ur Amphetamines Screen U Benzodiazepines Scrn Urine Cocaine Screen U Marijuana (THC) Screen Ethyl Alcohol COVID-19 (JACKIE) COVID-19 Clin Com Assessment and Plan (1) Alcohol intoxication delirium with moderate or severe use disorder: Status: Acute Plan Pt is a 67-year-old male with a PMH significant for?HTN and multiple 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 HPI is limited due to patient's mentation. According to EMS patient was seen by bystanders stumbling around when he fell on the sidewalk and lost consciousness. Pt will be admitted to the hospital under observation on telemetry for treatment and further workup of toxic encephalopathy likely secondary to alcohol ingestion. Toxic encephalopathy Likely secondary to alcohol use CT of head negative for acute territorial infarct or hemorrhage Drinks at least 4 large beers daily, alcohol level of 113 Continue phenobarb protocol Daily multivitamin, folic acid, thiamine CIWA scale Addiction Medicine consult Lactic acidosis, resolved Initial lactic acid 2.3 with repeat WML at 1.5 Likely secondary to dehydration, not sepsis resuscitated with IVF Hyponatremia improved to 130 follow BMP Hypokalemia improved to 4.0 with replacement Transaminitis Likely secondary to alcohol use disorder LFTs trending down Hx of CVA Continue statin, clopidogrel HTN BP has been soft, hold anti-hypertensive for now Resume as necessary Mood disorder Continue citalopram Full Code Attending:?Dr. Hollins DVT Prophylaxis: Lovenox Patient will be admitted to the hospital under observation on telemetry for toxic encephalopathy likely secondary to alcohol use. Time Spent With Patient Time: Total time managing care of this patient today ____ minutes. Quality Stroke Does the patient have a stroke diagnosis?: No VTE Prior VTE?: No VTE Risk Level:: Medical - moderate - high VTE Device Contraindication: Treatment Not Indicated VTE Drug Contraindication: N/A - Med Ordered
[2022-10-21 16:00] VITALS: BP 117/73; PULSE 70; RESP 18; TEMP 36.4; O2SAT 100
[2022-10-21 20:00] VITALS: BP 129/75; PULSE 84; RESP 18; TEMP 36.4; O2SAT 99
--- NOTE | 2022-10-21 20:07 | HO.ADDICT_ITS ---
History of Present Illness Date of Service: 10/21/2022 Chief Complaint: AMS Reason for Consult: alcohol use Sources of Information: patient interviewed and chart reviewed HPI Narrative: Patient is a 67 year old Danish speaking male currently medically admitted with encephalopathy. Consult request to address patients reported daily drinking. Patient seen in room 379. Awake, alert, pleasant and engaged in interview. He reports drinking 4 large beers daily for many years. Does not feel his drinking is an issue, he states that since he is able to cook for himself and eat, it's not a problem. Tangential, a bit challenging to obtain history from. Review of Systems Comments: denies any issues Diagnostics Vital Signs (24Hr): Vital Signs - 24 hr 10/20/22 20:21 10/20/22 22:34 10/20/22 23:50 Temperature 97.6 F 98.4 F Pulse Rate 99 96 99 Respiratory Rate 17 19 18 Blood Pressure 111/81 118/81 125/78 Pulse Oximetry 98 97 98 Oxygen Delivery Method Room Air Room Air Room Air 10/21/22 03:28 10/21/22 06:53 10/21/22 12:00 Temperature 97 F 98 F 97 F Pulse Rate 78 68 Respiratory Rate 18 18 Blood Pressure 98/56 L 101/64 Pulse Oximetry 97 97 Oxygen Delivery Method Room Air Room Air 10/21/22 16:00 Temperature 97.6 F Pulse Rate 70 Respiratory Rate 18 Blood Pressure 117/73 Pulse Oximetry 100 Oxygen Delivery Method Room Air BMI result Body Mass Index 21.5 Labs 10/21/22 05:36 10/21/22 05:36 Labs: Laboratory Results - last 48 hr 10/20/22 10/20/22 10/20/22 17:44 17:44 17:44 WBC 9.9 RBC 4.34 L Hgb 14.0 Hct 40.6 L MCV 93.5 MCH 32.3 MCHC 34.5 RDW 13.8 Plt Count 269 MPV 8.4 L Immature Gran % (Auto) 0.6 H Neut % (Auto) 61.1 Lymph % (Auto) 27.8 Ball[place] % (Auto) 7.7 Eos % (Auto) 1.6 Baso % (Auto) 1.2 Lymph # (Auto) 2.8 [place] # (Auto) 0.8 Eos # (Auto) 0.2 Baso # (Auto) 0.1 Abs Immat Gran (auto) 0.06 H Absolute Neuts (auto) 6.1 Absolute Nucleated RBC 0.000 Nucleated RBC % (auto) 0.0 PT INR Sodium 130 L Potassium 3.0 L Chloride 98 Carbon Dioxide 20 L Anion Gap 15 BUN 5 L Creatinine 0.88 Estim Creat Clear Calc 60.6 Estimated GFR > 60 Random Glucose 101 Lactic Acid 2.3 H* Lactic Acid F/U @ 2Hr Calcium 8.3 L Magnesium Total Bilirubin 0.6 Direct Bilirubin 0.2 AST 91 H ALT 67 H Alkaline Phosphatase 131 H Total Protein 5.6 L Albumin 3.2 L Lipase 34 Vitamin B12 Folate Urine Color Urine Appearance Urine pH Ur Specific [place] Urine Protein Urine Glucose (UA) Urine Ketones Urine Blood Urine Nitrite Ur Leukocyte Esterase Urine RBC Urine WBC Ur Squamous Epith Cells Urine Bacteria Hyaline Casts Urine Opiates Screen Urine Fentanyl Screen Ur Barbiturates Screen Ur Phencyclidine Scrn Ur Amphetamines Screen U Benzodiazepines Scrn Urine Cocaine Screen U Marijuana (THC) Screen Ethyl Alcohol 113 COVID-19 (JACKIE) COVID-19 Smart Mocha Com 10/20/22 10/20/22 10/20/22 17:44 17:44 19:50 WBC RBC Hgb Hct MCV MCH MCHC RDW Plt Count MPV Immature Gran % (Auto) Neut % (Auto) Lymph % (Auto) Ball[place] % (Auto) Eos % (Auto) Baso % (Auto) Lymph # (Auto) [place] # (Auto) Eos # (Auto) Baso # (Auto) Abs Immat Gran (auto) Absolute Neuts (auto) Absolute Nucleated RBC Nucleated RBC % (auto) PT 10.0 INR 0.9 Sodium Potassium Chloride Carbon Dioxide Anion Gap BUN Creatinine Estim Creat Clear Calc Estimated GFR Random Glucose Lactic Acid Lactic Acid F/U @ 2Hr Calcium Magnesium 1.7 Total Bilirubin Direct Bilirubin AST ALT Alkaline Phosphatase Total Protein Albumin Lipase Vitamin B12 Folate Urine Color Urine Appearance Urine pH Ur Specific [place] Urine Protein Urine Glucose (UA) Urine Ketones Urine Blood Urine Nitrite Ur Leukocyte Esterase Urine RBC Urine WBC Ur Squamous Epith Cells Urine Bacteria Hyaline Casts Urine Opiates Screen Urine Fentanyl Screen Ur Barbiturates Screen Ur Phencyclidine Scrn Ur Amphetamines Screen U Benzodiazepines Scrn Urine Cocaine Screen U Marijuana (THC) Screen Ethyl Alcohol COVID-19 (JACKIE) Negative COVID-19 Smart Mocha Com See Note 10/20/22 10/20/22 10/20/22 20:13 21:09 21:09 WBC RBC Hgb Hct MCV MCH MCHC RDW Plt Count MPV Immature Gran % (Auto) Neut % (Auto) Lymph % (Auto) [place] % (Auto) Eos % (Auto) Baso % (Auto) Lymph # (Auto) [place] # (Auto) Eos # (Auto) Baso # (Auto) Abs Immat Gran (auto) Absolute Neuts (auto) Absolute Nucleated RBC Nucleated RBC % (auto) PT INR Sodium Potassium Chloride Carbon Dioxide Anion Gap BUN Creatinine Estim Creat Clear Calc Estimated GFR Random Glucose Lactic Acid Lactic Acid F/U @ 2Hr 1.5 Calcium Magnesium Total Bilirubin Direct Bilirubin AST ALT Alkaline Phosphatase Total Protein Albumin Lipase Vitamin B12 Folate Urine Color Yellow Urine Appearance Clear Urine pH 5.5 Ur Specific [place] <= 1.005 Urine Protein Negative Urine Glucose (UA) Negative Urine Ketones Negative Urine Blood Negative Urine Nitrite Negative Ur Leukocyte Esterase Negative Urine RBC 0-2 Urine WBC 0-5 Ur Squamous Epith Cells 0-2 Urine Bacteria None Seen Hyaline Casts 0-2 Urine Opiates Screen Not Detected Urine Fentanyl Screen Not Detected Ur Barbiturates Screen Not Detected Ur Phencyclidine Scrn Not Detected Ur Amphetamines Screen Not Detected U Benzodiazepines Scrn Not Detected Urine Cocaine Screen Not Detected U Marijuana (THC) Screen Not Detected Ethyl Alcohol COVID-19 (JACKIE) COVID-19 Clin Com 10/20/22 10/21/22 10/21/22 23:25 05:36 05:36 WBC 10.4 RBC 3.97 L Hgb 12.7 L Hct 37.4 L MCV 94.2 MCH 32.0 MCHC 34.0 RDW 14.1 Plt Count 253 MPV 8.6 L Immature Gran % (Auto) 0.4 Neut % (Auto) 57.7 Lymph % (Auto) 29.8 Ballard % (Auto) 8.8 Eos % (Auto) 2.3 Baso % (Auto) 1.0 Lymph # (Auto) 3.1 [place] # (Auto) 0.9 Eos # (Auto) 0.2 Baso # (Auto) 0.1 Abs Immat Gran (auto) 0.04 H Absolute Neuts (auto) 6.0 Absolute Nucleated RBC 0.000 Nucleated RBC % (auto) 0.0 PT INR Sodium 137 Potassium 4.0 D Chloride 109 H Carbon Dioxide 23 Anion Gap 9 L BUN 4 L Creatinine 0.75 Estim Creat Clear Calc 81.5 Estimated GFR > 60 Random Glucose 81 Lactic Acid Lactic Acid F/U @ 2Hr Calcium 8.4 Magnesium Total Bilirubin 1.1 H Direct Bilirubin 0.4 AST 85 H ALT 54 H Alkaline Phosphatase 117 Total Protein 4.4 L Albumin 2.6 L Lipase Vitamin B12 221 Folate 8.8 Urine Color Urine Appearance Urine pH Ur Specific [place] Urine Protein Urine Glucose (UA) Urine Ketones Urine Blood Urine Nitrite Ur Leukocyte Esterase Urine RBC Urine WBC Ur Squamous Epith Cells Urine Bacteria Hyaline Casts Urine Opiates Screen Urine Fentanyl Screen Ur Barbiturates Screen Ur Phencyclidine Scrn Ur Amphetamines Screen U Benzodiazepines Scrn Urine Cocaine Screen U Marijuana (THC) Screen Ethyl Alcohol COVID-19 (JACKIE) COVID-19 Clin Com Imaging Radiology Impressions: ITS Impressions Cervical Spine CT 10/20/22 18:46 IMPRESSION: Head: There are chronic changes of an old infarct within the vascular territory of left middle cerebral artery. Numerous chronic small vessel ischemic changes are also visualized within the periventricular white matter. Grossly no evidence of acute territorial infarct or hemorrhage. 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 There is relatively advanced degenerative spondylosis at the atlantodental joint and both C1-C2 articular facet joints. There is also spondylosis at the junction of the unfused segments at C2-C3 and C4-C5. Grossly no evidence of canal compromise. No evidence of acute fracture and no posttraumatic spinal subluxation. Head CT 10/20/22 18:46 IMPRESSION: Head: There are chronic changes of an old infarct within the vascular territory of left middle cerebral artery. Numerous chronic small vessel ischemic changes are also visualized within the periventricular white matter. Grossly no evidence of acute territorial infarct or hemorrhage. 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 There is relatively advanced degenerative spondylosis at the atlantodental joint and both C1-C2 articular facet joints. There is also spondylosis at the junction of the unfused segments at C2-C3 and C4-C5. Grossly no evidence of canal compromise. No evidence of acute fracture and no posttraumatic spinal subluxation. Mental Status Exam Mental Status Exam Patient Orientation: Person, Place and Situation Level of Consciousness: Awake, Appropriate and Alert Patient Behavior: Talkative and Cooperative Speech Pattern: Clear and Rambling Thought Content: positive for Circumstantial Medications Medications Current Medications Acetaminophen (Acetaminophen 325 Mg Tablet) 650 mg PO Q6H PRN PRN Reason: Pain, Mild (Pain Scale 1-3) Atorvastatin Calcium (Atorvastatin Calcium 10 Mg Tablet) 10 mg PO BEDTIME [facility] Last Admin: 10/20/22 22:27 Dose: 10 mg Clopidogrel Bisulfate (Clopidogrel Bisulfate 75 Mg Tablet) 75 mg PO DAILY [facility] Last Admin: 10/21/22 08:43 Dose: 75 mg Enoxaparin Sodium (Enoxaparin Sodium 40 Mg/0.4 Ml Syringe) 40 mg SUBCUT Q24H [facility] Last Admin: 10/20/22 22:27 Dose: 40 mg Escitalopram Oxalate (Escitalopram Oxalate 10 Mg Tablet) 10 mg PO DAILY [facility] Last Admin: 10/21/22 08:43 Dose: 10 mg Famotidine (Famotidine 20 Mg Tablet) 20 mg PO BID [facility] Last Admin: 10/21/22 08:43 Dose: 20 mg Folic Acid (Folic Acid 1 Mg Tablet) 1 mg PO DAILY [facility] Stop: 10/24/22 08:59 Last Admin: 10/21/22 08:43 Dose: 1 mg Thiamine HCl 100 mg/ Sodium (Chloride) 101 mls @ 202 mls/hr IV DAILY [facility] Last Infusion: 10/21/22 09:26 Dose: Infused Melatonin (Melatonin 3 Mg Tablet) 6 mg PO BEDTIME PRN PRN Reason: Insomnia Multivitamins/Vitamin C (Multivitamin Tablet) 1 tab PO DAILY [facility] Stop: 10/24/22 08:59 Last Admin: 10/21/22 08:43 Dose: 1 tab Nicotine (Nicotine 14 Mg Patch.Td24) 14 mg TRANSDERMA DAILY [facility] Last Admin: 10/21/22 08:43 Dose: 14 mg Ondansetron HCl (Ondansetron Hcl 4 Mg/2 Ml Vial) 4 mg IVPUSH Q8H PRN PRN Reason: Nausea and Vomiting Pharmacy Consult (Consult Rx Perform Med Rec) 1 each MISCELLANE ONCE PRN PRN Reason: Consult order Pharmacy Consult (Consult Rx Etoh Phenob Im/Po) 1 each MISCELLANE ONCE PRN; Protocol PRN Reason: Consult order Phenobarbital (Phenobarbital 15 Mg Tablet) 45 mg PO BID [facility]; Protocol Stop: 10/22/22 21:01 Last Admin: 10/21/22 08:43 Dose: 45 mg Phenobarbital (Phenobarbital 15 Mg Tablet) 15 mg PO BID [facility]; Protocol Stop: 10/24/22 21:01 Phenobarbital (Phenobarbital 15 Mg Tablet) 15 mg PO DAILY [facility]; Protocol Stop: 10/26/22 09:01 Sodium Chloride (0.9 % Sodium Chloride Flush 3 Ml Syringe) 3 ml IVFLUSH QSHIFT [facility] Last Admin: 10/21/22 15:17 Dose: 3 ml Allergies Allergies Allergy/AdvReac Type Severity Reaction Status Date / Time No Known Allergies Allergy Unverified 10/20/22 17:38 Assessment & Plan Assessment & Plan (1) Alcohol withdrawal: Status: Acute Code(s): F10.939 - Alcohol use, unspecified with withdrawal, unspecified Assessment and Plan: * currently on phenobarb protocol * limited insight regarding alcohol use and potential concerns related to this * may benefit from follow up if patient open to this Total time managing care of this patient today __35__ minutes. 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 Cognitive impairment Depression Left-sided low back pain with left-sided sciatica Primary insomnia Pure hypercholesterolemia Smoker Family History Family History Father Medical history unknown Mother Medical history unknown Surgical History Surgical History History of cataract surgery Social History Social History Housing: House Alcohol intake: current Alcohol intake frequency: a few times a week Patient Tobacco Use Status: Current everyday Tobacco user Tobacco use type: Cigarette Cigarettes Per Day: 10 Smoked in Last 30 Days: Yes e-Cigarette/Vaping Use: Never Used Patient Interested in Nicotine Replacement: Yes Patient Given Instructions on How to Stop Smoking: No Second Hand Smoke Exposure: No Advance Directives: No Advance Directives Information Provided: No service: No Current occupational status: retired
[2022-10-21] MEDS: Enoxaparin Sodium 40 MG/0.4 ML SYRINGE SUBCUT (20:36)
[2022-10-21] MEDS: Atorvastatin Calcium 10 MG TABLET PO (20:37)
[2022-10-21 23:40] VITALS: BP 128/86; PULSE 87; RESP 18; TEMP 36.2; O2SAT 98
[2022-10-22 03:45] VITALS: BP 130/61; PULSE 65; RESP 18; TEMP 36.4; O2SAT 97
[2022-10-22] MEDS: Folic Acid 1 MG TABLET PO (07:53)
[2022-10-22] MEDS: Clopidogrel Bisulfate 75 MG TABLET PO (07:53)
[2022-10-22] MEDS: Multivitamin TABLET 1 TAB PO (07:53)
[2022-10-22] MEDS: Famotidine 20 MG TABLET PO ×2 (07:53→20:42)
[2022-10-22] MEDS: Escitalopram Oxalate 10 MG TABLET PO (07:54)
[2022-10-22] MEDS: PHENobarbitaL 15 MG TABLET 45 MG PO ×2 (07:55→20:42)
[2022-10-22] MEDS: Thiamine HCL 100 MG in 0.9 % Sodium Chloride 100 ML 202 MG IV (07:56)
[2022-10-22 08:00] VITALS: BP 126/75; PULSE 86; RESP 17; TEMP 35.9; O2SAT 98
[2022-10-22] MEDS: Nicotine 14 MG PATCH.TD24 TRANSDERMA (08:02)
[2022-10-22] MEDS: 0.9 % Sodium Chloride Flush 3 ML SYRINGE IVFLUSH ×3 (08:02→20:42)
--- NOTE | 2022-10-22 09:40 | HO.PM.IMPN ---
Subjective Subjective Date of Service: 10/22/22 Interval History: seen and examined this morning follow up for AMS awake, alert, appears confused and despite assistance of criminal investigator unable to provide any significant medical history denies any abdominal pain, shortness of breath, chest pain Review of Systems Review of Systems: No all other systems are reviewed and are negative Constitutional Constitutional: Denies chills and Denies fever(s) ENT Ears, Nose, Mouth, and Throat: Denies dizziness Cardiovascular Cardiovascular: Denies chest pain, Denies palpitations and Denies dyspnea Respiratory Respiratory: Denies cough and Denies dyspnea Gastrointestinal Gastrointestinal: Denies abdominal pain, Denies nausea and Denies vomiting Neurologic Neurologic: Reports confusion and Denies dizziness Psychiatric Psychiatric: Reports confusion Endocrine Endocrine: Denies palpitations Physical Exam Vital Signs: Vital Signs: Last Vital Signs Temp 96.7 F L 10/22/22 08:00 Pulse 86 10/22/22 08:00 Resp 17 10/22/22 08:00 BP 126/75 10/22/22 08:00 Pulse Ox 98 10/22/22 08:00 O2 Del Method Room Air 10/22/22 08:00 BMI result Body Mass Index 21.5 Appearing in no acute distress lung sounds are clear to auscultation heart regular rate rhythm, clear S1, S2 positive bowel sounds, abdomen is soft, nontender neuro patient is alert x3, no focal deficits Const: General: confusion Orientation/consciousness: confusion Neuro: General: confusion Objective Data Active Medications Acetaminophen (Acetaminophen 325 Mg Tablet) 650 mg PO Q6H PRN PRN Reason: Pain, Mild (Pain Scale 1-3) Atorvastatin Calcium (Atorvastatin Calcium 10 Mg Tablet) 10 mg PO BEDTIME [facility] Last Admin: 10/21/22 20:37 Dose: 10 mg Documented By: BRISA Clopidogrel Bisulfate (Clopidogrel Bisulfate 75 Mg Tablet) 75 mg PO DAILY [facility] Last Admin: 10/22/22 07:53 Dose: 75 mg Documented By: NEVAEH Enoxaparin Sodium (Enoxaparin Sodium 40 Mg/0.4 Ml Syringe) 40 mg SUBCUT Q24H [facility] Last Admin: 10/21/22 20:36 Dose: 40 mg Documented By: BRISA Escitalopram Oxalate (Escitalopram Oxalate 10 Mg Tablet) 10 mg PO DAILY [facility] Last Admin: 10/22/22 07:54 Dose: 10 mg Documented By: NEVAEH Famotidine (Famotidine 20 Mg Tablet) 20 mg PO BID [facility] Last Admin: 10/22/22 07:53 Dose: 20 mg Documented By: NEVAEH Folic Acid (Folic Acid 1 Mg Tablet) 1 mg PO DAILY [facility] Stop: 10/24/22 08:59 Last Admin: 10/22/22 07:53 Dose: 1 mg Documented By: NEVAEH Thiamine HCl 100 mg/ Sodium (Chloride) 101 mls @ 202 mls/hr IV DAILY [facility] Last Infusion: 10/22/22 09:06 Dose: 0 mls/hr Documented By: NEVAEH Melatonin (Melatonin 3 Mg Tablet) 6 mg PO BEDTIME PRN PRN Reason: Insomnia Multivitamins/Vitamin C (Multivitamin Tablet) 1 tab PO DAILY [facility] Stop: 10/24/22 08:59 Last Admin: 10/22/22 07:53 Dose: 1 tab Documented By: NEVAEH Nicotine (Nicotine 14 Mg Patch.Td24) 14 mg TRANSDERMA DAILY [facility] Last Admin: 10/22/22 08:02 Dose: 14 mg Documented By: NEVAEH Ondansetron HCl (Ondansetron Hcl 4 Mg/2 Ml Vial) 4 mg IVPUSH Q8H PRN PRN Reason: Nausea and Vomiting Pharmacy Consult (Consult Rx Perform Med Rec) 1 each MISCELLANE ONCE PRN PRN Reason: Consult order Pharmacy Consult (Consult Rx Etoh Phenob Im/Po) 1 each MISCELLANE ONCE PRN; Protocol PRN Reason: Consult order Phenobarbital (Phenobarbital 15 Mg Tablet) 45 mg PO BID [facility]; Protocol Stop: 10/22/22 21:01 Last Admin: 10/22/22 07:55 Dose: 45 mg Documented By: NEVAEH Phenobarbital (Phenobarbital 15 Mg Tablet) 15 mg PO BID [facility]; Protocol Stop: 10/24/22 21:01 Phenobarbital (Phenobarbital 15 Mg Tablet) 15 mg PO DAILY [facility]; Protocol Stop: 10/26/22 09:01 Sodium Chloride (0.9 % Sodium Chloride Flush 3 Ml Syringe) [facility] Admin: 10/22/22 08:02 Dose: 3 ml Documented By: NEVAEH Labs 10/21/22 05:36 10/21/22 05:36 Assessment and Plan (1) Alcohol intoxication delirium with moderate or severe use disorder: Status: Acute Plan 67-year-old male with a PMH significant for?HTN and multiple 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 HPI is limited due to patient's mentation. According to EMS patient was seen by bystanders stumbling around when he fell on the sidewalk and lost consciousness. Pt will be admitted to the hospital under observation on telemetry for treatment and further workup of toxic encephalopathy likely secondary to alcohol ingestion. Toxic encephalopathy Likely secondary to alcohol use CT of head negative for acute territorial infarct or hemorrhage Drinks at least 4 large beers daily, alcohol level of 113 Continue phenobarb protocol Daily multivitamin, folic acid, thiamine Addiction Medicine consult Lactic acidosis, resolved Likely secondary to dehydration, not sepsis resuscitated with IVF Hyponatremia improved to 130 follow BMP Hypokalemia improved to 4.0 with replacement Transaminitis Likely secondary to alcohol use disorder LFTs trending down Hx of CVA Continue statin, clopidogrel HTN BP has been soft, hold anti-hypertensive for now Resume as necessary Mood disorder Continue citalopram Full Code Attending:?Dr. Hollins DVT Prophylaxis: Lovenox Patient will be admitted to the hospital under observation on telemetry for toxic encephalopathy likely secondary to alcohol use. Time Spent With Patient Time: Total time managing care of this patient today ____ minutes. Quality Stroke Does the patient have a stroke diagnosis?: No VTE Prior VTE?: No VTE Risk Level:: Medical - moderate - high VTE Device Contraindication: Treatment Not Indicated VTE Drug Contraindication: N/A - Med Ordered
[2022-10-22 11:23] VITALS: BP 136/78; PULSE 81; RESP 17; TEMP 37.1; O2SAT 100
[2022-10-22 15:25] VITALS: BP 131/78; PULSE 90; RESP 18; TEMP 36.6; O2SAT 100
--- NOTE | 2022-10-22 19:03 | PC.NURSE ---
This Nurse found a pack of cigarette and a mental health therapist on patient's bed, son took them home.
[2022-10-22 19:25] VITALS: BP 144/83; PULSE 88; RESP 18; TEMP 36.6; O2SAT 100
[2022-10-22] MEDS: Enoxaparin Sodium 40 MG/0.4 ML SYRINGE SUBCUT (20:41)
[2022-10-22] MEDS: Atorvastatin Calcium 10 MG TABLET PO (20:42)
[2022-10-22 23:13] VITALS: BP 140/83; PULSE 72; RESP 16; TEMP 36.1; O2SAT 98
[2022-10-23 03:29] VITALS: BP 134/68; PULSE 74; RESP 16; TEMP 36.2; O2SAT 99
[2022-10-23 08:00] VITALS: BP 132/83; PULSE 75; RESP 18; TEMP 36.8; O2SAT 98
[2022-10-23] MEDS: Thiamine HCL 100 MG in 0.9 % Sodium Chloride 100 ML 202 MG IV (09:20)
[2022-10-23] MEDS: PHENobarbitaL 15 MG TABLET PO ×2 (09:23→21:32)
[2022-10-23] MEDS: 0.9 % Sodium Chloride Flush 3 ML SYRINGE IVFLUSH ×2 (09:23→16:20)
[2022-10-23] MEDS: Escitalopram Oxalate 10 MG TABLET PO (09:23)
[2022-10-23] MEDS: Folic Acid 1 MG TABLET PO (09:24)
[2022-10-23] MEDS: Famotidine 20 MG TABLET PO ×2 (09:24→21:32)
[2022-10-23] MEDS: Multivitamin TABLET 1 TAB PO (09:24)
[2022-10-23] MEDS: Clopidogrel Bisulfate 75 MG TABLET PO (09:24)
[2022-10-23] MEDS: Nicotine 14 MG PATCH.TD24 TRANSDERMA (09:24)
--- NOTE | 2022-10-23 10:58 | HO.PM.IMPN ---
Subjective Subjective Date of Service: 10/23/22 Interval History: seen and examined this morning follow up for AMS awake, alert, appears confused and despite assistance of open pit quarry supervisor unable to provide any significant medical history denies any abdominal pain, shortness of breath, chest pain Review of Systems Review of Systems: No all other systems are reviewed and are negative Constitutional Constitutional: Denies chills and Denies fever(s) ENT Ears, Nose, Mouth, and Throat: Denies dizziness Cardiovascular Cardiovascular: Denies chest pain, Denies palpitations and Denies dyspnea Respiratory Respiratory: Denies cough and Denies dyspnea Gastrointestinal Gastrointestinal: Denies abdominal pain, Denies nausea and Denies vomiting Neurologic Neurologic: Reports confusion and Denies dizziness Psychiatric Psychiatric: Reports confusion Endocrine Endocrine: Denies palpitations Physical Exam Vital Signs: Vital Signs: Last Vital Signs Temp 98.2 F 10/23/22 08:00 Pulse 75 10/23/22 08:00 Resp 18 10/23/22 08:00 BP 132/83 10/23/22 08:00 Pulse Ox 98 10/23/22 08:00 O2 Del Method Room Air 10/23/22 08:00 BMI result Body Mass Index 21.5 Appearing in no acute distress lung sounds are clear to auscultation heart regular rate rhythm, clear S1, S2 positive bowel sounds, abdomen is soft, nontender neuro patient is alert x3, no focal deficits Const: General: confusion Orientation/consciousness: confusion Neuro: General: confusion Objective Data Active Medications Acetaminophen (Acetaminophen 325 Mg Tablet) 650 mg PO Q6H PRN PRN Reason: Pain, Mild (Pain Scale 1-3) Atorvastatin Calcium (Atorvastatin Calcium 10 Mg Tablet) 10 mg PO BEDTIME [facility] Last Admin: 10/22/22 20:42 Dose: 10 mg Documented By: BRISA Clopidogrel Bisulfate (Clopidogrel Bisulfate 75 Mg Tablet) 75 mg PO DAILY [facility] Last Admin: 10/23/22 09:24 Dose: 75 mg Documented By: NEVAEH Enoxaparin Sodium (Enoxaparin Sodium 40 Mg/0.4 Ml Syringe) 40 mg SUBCUT Q24H [facility] Last Admin: 10/22/22 20:41 Dose: 40 mg Documented By: BRISA Escitalopram Oxalate (Escitalopram Oxalate 10 Mg Tablet) 10 mg PO DAILY [facility] Last Admin: 10/23/22 09:23 Dose: 10 mg Documented By: NEVAEH Famotidine (Famotidine 20 Mg Tablet) 20 mg PO BID [facility] Last Admin: 10/23/22 09:24 Dose: 20 mg Documented By: NEVAEH Folic Acid (Folic Acid 1 Mg Tablet) 1 mg PO DAILY [facility] Stop: 10/24/22 08:59 Last Admin: 10/23/22 09:24 Dose: 1 mg Documented By: NEVAEH Thiamine HCl 100 mg/ Sodium (Chloride) 101 mls @ 202 mls/hr IV DAILY [facility] Last Admin: 10/23/22 09:20 Dose: 202 mls/hr Documented By: NEVAEH Melatonin (Melatonin 3 Mg Tablet) 6 mg PO BEDTIME PRN PRN Reason: Insomnia Multivitamins/Vitamin C (Multivitamin Tablet) 1 tab PO DAILY [facility] Stop: 10/24/22 08:59 Last Admin: 10/23/22 09:24 Dose: 1 tab Documented By: NEVAEH Nicotine (Nicotine 14 Mg Patch.Td24) 14 mg TRANSDERMA DAILY [facility] Last Admin: 10/23/22 09:24 Dose: 14 mg Documented By: NEVAEH Ondansetron HCl (Ondansetron Hcl 4 Mg/2 Ml Vial) 4 mg IVPUSH Q8H PRN PRN Reason: Nausea and Vomiting Pharmacy Consult (Consult Rx Perform Med Rec) 1 each MISCELLANE ONCE PRN PRN Reason: Consult order Pharmacy Consult (Consult Rx Etoh Phenob Im/Po) 1 each MISCELLANE ONCE PRN; Protocol PRN Reason: Consult order Phenobarbital (Phenobarbital 15 Mg Tablet) 15 mg PO BID [facility]; Protocol Stop: 10/24/22 21:01 Last Admin: 10/23/22 09:23 Dose: 15 mg Documented By: NEVAEH Phenobarbital (Phenobarbital 15 Mg Tablet) 15 mg PO DAILY [facility]; Protocol Stop: 10/26/22 09:01 Sodium Chloride (0.9 % Sodium Chloride Flush 3 Ml Syringe) [facility] Admin: 10/23/22 09:23 Dose: 3 ml Documented By: NEVAEH Labs 10/21/22 05:36 10/21/22 05:36 Assessment and Plan (1) Alcohol intoxication delirium with moderate or severe use disorder: Status: Acute Plan 67-year-old male with a PMH significant for?HTN and multiple 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 HPI is limited due to patient's mentation. According to EMS patient was seen by bystanders stumbling around when he fell on the sidewalk and lost consciousness. Pt will be admitted to the hospital under observation on telemetry for treatment and further workup of toxic encephalopathy likely secondary to alcohol ingestion. Toxic encephalopathy Likely secondary to alcohol use CT of head negative for acute territorial infarct or hemorrhage Drinks at least 4 large beers daily, alcohol level of 113 Continue phenobarb protocol Daily multivitamin, folic acid, thiamine PT consult pending Lactic acidosis, resolved Likely secondary to dehydration, not sepsis resuscitated with IVF Hyponatremia resolved follow BMP Hypokalemia improved to 4.0 with replacement Transaminitis Likely secondary to alcohol use disorder LFTs trending down Hx of CVA Continue statin, clopidogrel HTN BP has been soft, hold anti-hypertensive for now Resume as necessary Mood disorder Continue citalopram Full Code Attending:?Dr. Hollins [facility] consult pending Time Spent With Patient Time: Total time managing care of this patient today ____ minutes. Quality Stroke Does the patient have a stroke diagnosis?: No VTE Prior VTE?: No VTE Risk Level:: Medical - moderate - high VTE Device Contraindication: Treatment Not Indicated VTE Drug Contraindication: N/A - Med Ordered
[2022-10-23 12:00] VITALS: BP 130/78; PULSE 76; RESP 18; TEMP 36.6
[2022-10-23 15:36] VITALS: BP 136/79; PULSE 71; RESP 18; TEMP 36.2; O2SAT 100
[2022-10-23 19:51] VITALS: BP 126/85; PULSE 88; RESP 16; TEMP 36.3; O2SAT 99
[2022-10-23] MEDS: Enoxaparin Sodium 40 MG/0.4 ML SYRINGE SUBCUT (21:32)
[2022-10-23] MEDS: Atorvastatin Calcium 10 MG TABLET PO (21:32)
[2022-10-23 23:19] VITALS: BP 130/77; PULSE 68; RESP 16; TEMP 36.1; O2SAT 98
[2022-10-24] MEDS: 0.9 % Sodium Chloride Flush 3 ML SYRINGE IVFLUSH ×2 (00:10→07:57)
[2022-10-24 03:34] VITALS: BP 127/77; PULSE 70; RESP 14; TEMP 36.1; O2SAT 100
[2022-10-24 07:19] VITALS: BP 134/91; PULSE 79; RESP 18; TEMP 36.4; O2SAT 98
[2022-10-24] MEDS: Clopidogrel Bisulfate 75 MG TABLET PO (07:56)
[2022-10-24] MEDS: Nicotine 14 MG PATCH.TD24 TRANSDERMA (07:56)
[2022-10-24] MEDS: Famotidine 20 MG TABLET PO (07:56)
[2022-10-24] MEDS: Escitalopram Oxalate 10 MG TABLET PO (07:56)
[2022-10-24] MEDS: PHENobarbitaL 15 MG TABLET PO (07:56)
[2022-10-24] MEDS: Thiamine HCL 100 MG in 0.9 % Sodium Chloride 100 ML 202 MG IV (07:57)
--- NOTE | 2022-10-24 10:53 | W.MHC.F2F ---
Service Date Service Date: 10/24/22 Encounter Date of encounter: 10/24/22 Reasons for Services Signs and symptoms assessed: Toxic encephalopathy Fall Reason for physical therapy: home safety and mobility Homebound: Leaving the home is medically contraindicated at this time without the asist of a device and/or another person due th the listed conditions above and below. Reason homebound: unsteady gait / fall risk Certification: Based on the above findings, I certify that this patient is confined to the home and needs intermittent prison care, physical therapy and/or speech therapy, or continues to need occupational therapy. The patient is under my care, and I have initiated the establishment of the plan of care. The patient will be followed by a physician who will periodically review the plan of care. Time Spent With Patient Time: Total time managing care of this patient today ____ minutes.
--- NOTE | 2022-10-24 10:54 | P.DS_ITS ---
DS: Providers Provider Date of Service: 10/24/22 Date of admission: 10/21/22 10:15 Primary care physician: Unknown Physician Consults: 10/20/22 21:45 Addiction Medicine Routine Consulting Provider: Addiction Covering Reason for consultation: alcohol use disorder DS: Diagnosis Discharge Diagnosis (1) Alcohol intoxication delirium with moderate or severe use disorder: Status: Acute DS: Summary Hospital Course Hospital Course: History and physical as per admitting provider Pt is a 67-year-old male with a PMH significant for?HTN and multiple 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 HPI is limited due to patient's mentation.? According to EMS patient was seen by bystanders stumbling around when he fell on the sidewalk and lost consciousness. EMS report patient was not initially on able to answer questions and was hypotensive with systolic BP in the 70s and heart rate in 40s.? Patient's family note that he drinks beer daily though the exact amount is unknown.? They also report patient had multiple CVAs while in [place] 12-13 years ago. Pt has since had a mild speech deficit and residual left leg weakness.? Patient is also a noted current everyday smoker of around a pack a day.? Patient's healthcare proxy is his grandson Bronson ([phone]) who reports he has been trying to get his grandfather to cut back on his drinking.? He would be appreciative for any Addiction counseling or services that could be provided for his grandfather.? Patient currently complains only of right elbow pain.? Denies chest pain/pressure, palpitations.? No shortness of breath.? Chronic cough.? No headache, lightheadedness, dizziness.? Denies fever, chills, nausea, vomiting, diarrhea, abdominal pain.? Patient denies a past history of alcohol withdrawal or chronic upper extremity tremors in the morning. In the ED labs were significant for sodium of 130, potassium of 3.0, initial lactic acid of 2.3, with repeat of 1.5, AST of 91, ALT of 67, alk-phos of 131.? Renal function WNL.? Magnesium WNL at 1.7.? Ethyl alcohol level was 113 at time of presentation.? CXR pending. CT of head showed no evidence of acute territorial infarct or hemorrhage, but showed chronic changes of an old infarct within the vascular territory the left MCA.? 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 ?EKG demonstrated normal sinus rhythm without evidence of ST el evations or depressions. Pt was treated with IVF, DTaP, lorazepam, IVF, thiamine, potassium chloride, and started on phenobarb protocol. Pt will be admitted to the hospital under observation on telemetry for treatment and further workup of toxic encephalopathy likely secondary to alcohol ingestion . Toxic encephalopathy Likely secondary to alcohol use CT of head negative for acute territorial infarct or hemorrhage Drinks at least 4 large beers daily, alcohol level of 113 on admission treated with phenobarb protocol Lactic acidosis, resolved Likely secondary to dehydration, not sepsis resuscitated with IVF Hyponatremia resolved Hypokalemia improved to 4.0 with replacement Transaminitis Likely secondary to alcohol use disorder Hx of CVA Continue statin, clopidogrel HTN home medications for now Mood disorder Continue citalopram Time Spent with Patient Time attestation: Total time managing care of this patient today ____ minutes. Discharge coordination time: Greater than 30 minutes Quality: Safe Use of Opioids Does Pt have an Active Cancer Diagnosis on the Problem List?: No Quality: Stroke Does the patient have a stroke diagnosis?: No Physical Exam Vital Signs: Vital Signs: Last Vital Signs Temp 97.6 F 10/24/22 07:19 Pulse 79 10/24/22 07:19 Resp 18 10/24/22 07:19 BP 134/91 H 10/24/22 07:19 Pulse Ox 98 10/24/22 07:19 O2 Del Method Room Air 10/24/22 07:19 BMI result Body Mass Index 21.5 Appearing in no acute distress head is normocephalic atraumatic eyes pupils are PERRLA sclera is anicteric mouth throat mucous membranes are intact and moist neck is supple no lymphadenopathy, no JVD noted lung sounds are clear to auscultation heart regular rate rhythm, clear S1, S2 positive bowel sounds, abdomen is soft, nontender neuro patient is alert x3, no focal deficits Discharge Plan Discharge Anticipated Discharge Date/Time: 10/24/22 10:52 Patient Disposition: Home Health Service Discharge Diagnosis: Toxic encephalopathy Fall Lactic acidosis Hyponatremia Hypokalemia Transaminitis Discharge Medications: Continued atenolol 100 mg tablet 100 mg PO DAILY Qty: 90 0RF hydrochlorothiazide 50 mg tablet 50 mg PO DAILY Qty: 90 0RF clopidogrel 75 mg tablet 75 mg PO DAILY Qty: 90 0RF enalapril maleate 20 mg tablet 20 mg PO DAILY Qty: 90 0RF citalopram 20 mg tablet 20 mg PO DAILY Qty: 90 0RF atorvastatin 10 mg tablet 10 mg PO BEDTIME Qty: 30 0RF Discharge Orders: Discharge Order (Routine); Ordered 10/24/22 Ordered By: Yuridia Prasad Diet: Advance to usual diet Activity on Discharge: As tolerated Stand Alone Forms: Patient Portal Discharge page Care Plan Goals: Complete resolution of symptoms Home physical therapy Health Concerns: Toxic encephalopathy Lactic acidosis Hyponatremia Hypokalemia Transaminitis Plan of Treatment: Follow-up with primary care provider as needed Take all medications as prescribed Assessment: See discharge summary
--- NOTE | 2022-10-24 11:01 | MHC.CM.PN ---
DP: PT HAS BEEN MEDICALLY CLEARED FOR DC HOME WITH NEW HOME PT WITH [facility] ([facility] CHO[facility]). RN AWARE. [facility] NOTIFIED FOR TODAY'S DC. SON /HCP MANUEL WILL TRANSPORT HOME.
[2022-10-24 11:46] VITALS: BP 134/91; PULSE 79; O2SAT 98
== END 2022-10-24 11:34 | disposition home or self-care (01) | DRG 896 ==
LOC: HO.ED 21:47 → HO.EDOVER 21:49 → HO.S3 22:00
PROVIDERS: Physician Assistant Medical; Admitting Provider Student in an Organized Health Care Education/Training Program; Emergency Provider Student in an Organized Health Care Education/Training Program; PCP Internal Medicine; Visit Provider Nurse Practitioner Acute Care
DX: F10.231 Alcohol dependence with withdrawal delirium (principal); G92.8 Other toxic encephalopathy; E87.20 Acidosis, unspecified; E87.1 Hypo-osmolality and hyponatremia; F10.221 Alcohol dependence with intoxication delirium; E78.00 Pure hypercholesterolemia, unspecified; Z86.73 Personal history of transient ischemic attack (TIA), and cerebral infarction without residual deficits; F39 Unspecified mood [affective] disorder; E87.6 Hypokalemia; I10 Essential (primary) hypertension; F17.210 Nicotine dependence, cigarettes, uncomplicated; Y90.5 Blood alcohol level of 100-119 mg/100 ml; Z71.6 Tobacco abuse counseling; Z20.822 Contact with and (suspected) exposure to COVID-19; Z79.02 Long term (current) use of antithrombotics/antiplatelets; Z79.899 Other long term (current) drug therapy
CPT/HCPCS: 36415; 70450; 71046; 72125; 80048; 80076; 80307; 81001; 82607; 82746; 83605; 83690; 83735; 85025; 85610; 87635; 90715; 93005; 97161; 99221; 99285; J1650; J2560; J3411

== ENCOUNTER 2022-12-29 11:10 | Outpatient (AMB) | payer MEDICARE, MEDICAID, SELFPAY ==
--- NOTE | 2022-12-29 11:11 | A.OFFPC_ITS ---
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 Allergies No Known Allergies Allergy (Verified 12/29/22 11:38) Medication List - Last Reconciled 12/29/22 by ARABELLA Queen atenolol 100 mg PO DAILY atorvastatin 10 mg PO BEDTIME citalopram 20 mg PO DAILY clopidogrel 75 mg PO DAILY enalapril maleate 20 mg PO DAILY hydrochlorothiazide 50 mg PO DAILY Tobacco use date assessed: 12/29/22 Fall risk assessment: 2 + Falls in past year Last assessed Fall Risk: 12/29/22 Dental Screening Dental Screen Date: 12/29/22 Did you have a dental visit in the last 12 months?: No Did you have a dental problem in the last 6 months where you did not have access to dental care?: No HPI Med review/discuss patient living alone HPI Details Patient is a 67-year-old male who presents today to follow-up on his medications. Patient of Dr. Pittman. Patient is accompanied by his daughter in-law who helps with Serbian interpretation. Medical history significant for history of CVA-on clopidogrel, insomnia, depression, smoker-interested in nicotine replacement therapy, cognitive lykrjsklkh-uutbmbcu-ka-law reports memory issues for the past 14 years-patient forgetful-did not see Neurology in the past-will refer, toenail fungus-will refer to Podiatry, history of fall about 1 month ago. Patient is alert and oriented to self and place, and not year. Patient lives with [id number] and they are trying to obtain apartment for the patient in [place] where [id number] lives, they reque sted a letter from PCP with medical conditions for the patient. Patient has apartment in [place] although family wants him to be closer to them. Patient needs help with ADLs. Patient needs helps with medications. Patient ambulates with a rolling walker. Smokes about 1-2 packs cigarettes per day. Denies shortness of breath or chest pain. 10/2022 CT/CT head/brain wo IV con IMPRESSION: Head: There are chronic changes of an old infarct within the vascular territory of left middle cerebral artery. Numerous chronic small vessel ischemic changes are also visualized within the periventricular white matter. Grossly no evidence of acute territorial infarct or hemorrhage. ? 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 There is relatively advanced degenerative spondylosis at the atlantodental joint and both C1-C2 articular facet joints. There is also spondylosis at the junction of the unfused segments at C2-C3 and C4-C5. Grossly no evidence of canal compromise. No evidence of acute fracture and no posttraumatic spinal subluxation. PFSH Medical History Benign essential hypertension 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 Cognitive impairment Depression Left-sided low back pain with left-sided sciatica Primary insomnia Pure hypercholesterolemia Smoker Surgical History History of cataract surgery Family History Father Medical history unknown Mother Medical history unknown Social History Housing: House Alcohol intake: current Alcohol intake frequency: a few times a week Patient Tobacco Use Status: Current everyday Tobacco user Tobacco use type: Cigarette Cigarettes Per Day: 10 e-Cigarette/Vaping Use: Never Used Second Hand Smoke Exposure: No service: No Current occupational status: retired Cognitive needs: No Hearing needs: No Vision needs: No Questionnaire PHQ-9 Over the last 2 weeks, how often have you been bothered by any of the following problems? 1. Little interest or pleasure in doing things: nearly every day 2. Feeling down, depressed, or hopeless: nearly every day 3. Trouble falling or staying asleep, or sleeping too much: not at all 4. Feeling tired or having little energy: not at all 5. Poor appetite or overeating: not at all 6. Feeling bad about yourself - or that you are a failure or have let yourself or your family down: not at all 7. Trouble concentrating on things, such as reading the newspaper or watching t elevision: not at all 8. Moving or speaking so slowly that other people could have noticed. Or the opposite - being so fidgety or restless that you have been moving around a lot more than usual: not at all 9. Thoughts that you would be better off or of hurting yourself in some way: not at all Total score: 6 Depression Screening Interpretation: Negative 49029 - PHQ-9 Billing: Yes Source: Developed by Drs. Behzad Xie, Sirisha Pedraza, Mata Mejia and colleagues, with an educational gerardo from [employer]. Thrive Questionnaire Date Thrive assessed: 12/29/22 AUDIT C Alcohol Use Questionnaire (AUDIT-C) 1. How often do you have a drink containing alcohol?: Never 3. How often do you have six or more drinks on one occasion?: Never Total Score: 0 Score Reviewed/Action Taken: No FIONA-7 AMB Questionnaire FIONA-7 Date FIONA - 7 assessed: 12/29/22 Feeling nervous, anxious, or on edge: 3 = Nearly every day Not being able to stop or control worryin = Nearly every day Worrying too much about different things: 0 = Not at all Trouble relaxin = Not at all Being so restless that it is hard to sit still: 0 = Not at all Becoming easily annoyed or irritable: 0 = Not at all Feeling afraid as if something awful might happen: 0 = Not at all Total FIONA-7 score (0-4 normal; 5-9 mild; 10-14 moderate; 15-21 severe): 6 Source: Developed by Drs. Behzad Xie, Sirisha Pedraza, Mata Mejia and colleagues, with an educational gerardo from [employer]. FIONA-7 Assessment Billing FIONA-7 Assessment Tool: FIONA-7 Assessment 04966 Review of Systems Const Denies body aches, Denies chills, Denies fever(s) and Denies headache(s) Eyes Denies change in vision ENT Denies dizziness, Denies otalgia, Denies headache(s), Denies nasal discharge, Denies sinus pain and Denies sore throat Card Denies chest pain, Denies edema, Denies lightheadedness and Denies dyspnea Resp Denies cough, Denies dyspnea and Denies wheezing GI Denies abdominal pain Denies dysuria Musc Denies myalgias Skin/Breast Reports as per HPI and Denies rash Neuro Denies dizziness and Denies headache(s) Aller/Immun Denies wheezing Physical exam (Primary Care) Vital Signs: Last Vital Signs Pulse 68 12/29/22 11:12 BP 138/68 12/29/22 11:12 Pulse Ox 97 12/29/22 11:12 Oxygen Delivery Method Room Air 12/29/22 11:12 BMI result Body Mass Index 22.6 Tobacco/Smoking Status: Tobacco use Status Tobacco use date assessed 12/29/22 12/29/22 11:13 Patient Tobacco Use Status Current everyday Tobacco 12/29/22 11:13 Tobacco use type Cigarette 12/29/22 11:13 e-Cigarette/Vaping Use Never Used 12/29/22 11:13 PHQ-9: PHQ-9 Score PHQ-9: Total score 6 12/29/22 12:00 Depression Screening Interpretation: Negative Thrive Assessment: Date of Thrive Assessment Date Thrive assessed 12/29/22 12/29/22 11:13 Const Other: Patient ambulates with a rolling walker General: cooperative and no acute distress Orientation/consciousness: oriented to person and oriented to place HENOK Head: Yes normocephalic and Yes atraumatic Face and sinus: Yes sinuses nontender Mouth: oropharynx normal and moist mucous membranes Throat: Yes posterior oropharynx normal Eyes General: appearance normal, both eyes and all related structures Neck Neck: Yes normal visual inspection, Yes full ROM and Yes no lymphadenopathy Resp Effort & Inspection: normal respiratory effort and able to speak in complete sentences Auscultation: clear to auscultation bilaterally, no crackles, no rales, no rhonchi and no wheezes Cardio Rate: regular rate Rhythm: regular rhythm Heart sounds: S1 normal heart sound present and S2 normal heart sound present GI Auscultation: normal bowel sounds Skin Other: Toenails with brown discoloration and thick nails General skin exam: no rashes or lesions noted Neuro General: oriented to person and oriented to place Extrem General: Yes full ROM and No edema Assessment and Plan Assessment & Plan (1) Nicotine dependence: Code(s): F17.200 - Nicotine dependence, unspecified, uncomplicated Plan: Nicotine patch sent (2) Onychomycosis: Code(s): B35.1 - Tinea unguium Plan: Podiatry referral for an evaluation and treatment (3) Cognitive impairment: Code(s): R41.89 - Other symptoms and signs involving cognitive functions and awareness Plan: Urology referral for an evaluation and treatment (4) Benign essential hypertension: Code(s): I10 - Essential (primary) hypertension Plan: Goal BP equal or less than 140/90 Continue hydrochlorothiazide, enalapril, atenolol Low-sodium diet (5) Pure hypercholesterolemia: Code(s): E78.00 - Pure hypercholesterolemia, unspecified Plan: Continue atorvastatin Encouraged to complete blood work Plan Keep appointment with PCP as scheduled or follow-up sooner as needed Orders: Referrals Neurology Referral R41.89 - Other symptoms and signs involving cognitive functions and awareness Podiatry Referral B35.1 - Tinea unguium Medications: New nicotine 1 patch transdermal DAILY 28 ea 1RF F17.200 - Nicotine dependence, unspecified, uncomplicated Coding Level of Care Code Est Pt Level 4 (63881) Diagnoses Nicotine dependence F17.200 Onychomycosis B35.1 Cognitive impairment R41.89 Benign essential hypertension I10 Pure hypercholesterolemia E78.00 Additional Codes FIONA-7 Assessment Billing - FIONA-7 Assessment Tool: FIONA-7 Assessment 83154 ([id number])
[2022-12-29 11:12] VITALS: BP 138/68; PULSE 68; O2SAT 97; BMI 22.6
== END 2022-12-29 12:20 | disposition home or self-care (01) ==
PROVIDERS: PCP Internal Medicine; Visit Provider Nurse Practitioner Family
DX: I10 Essential (primary) hypertension (principal); F17.210 Nicotine dependence, cigarettes, uncomplicated; B35.1 Tinea unguium; R41.89 Other symptoms and signs involving cognitive functions and awareness; E78.00 Pure hypercholesterolemia, unspecified
CPT/HCPCS: 99214

== ENCOUNTER 2023-01-30 10:54 | Outpatient (AMB) | payer MEDICARE, MEDICAID, SELFPAY ==
--- NOTE | 2023-01-30 11:06 | AM.OFFVISNUR ---
Intake Intake Visit Reasons: tb shot Allergies No Known Allergies Allergy (Verified 12/29/22 11:38) Office Meds tuberculin PPD 5 tub. unit/0.1 mL intradermal injection solution Performing Provider: Chapin Pittman MD [facility] Administered by: Kolby Nicole RN on 01/30/23 11:05 Dose Route Admin Location Dispensed Lot Number Expiration Date NDC Insurance Sales Manager 0.1 mL intradermal left forearm 0.1 mL [id number] 02/12/26 04988-749-99 [employer] Comments: patient tolerated PPD plant well. patient instructed to return in 48 hours for reading. Coding Assessment & Plan Assessment & Plan Orders: Orders AMB PPD Planted Today Z11.1 - Encounter for screening for respiratory tuberculosis
== END 2023-01-30 11:11 | disposition home or self-care (01) ==
PROVIDERS: PCP Internal Medicine; Visit Provider Internal Medicine
DX: Z11.1 Encounter for screening for respiratory tuberculosis (principal)
CPT/HCPCS: 86580

== ENCOUNTER 2023-02-01 11:26 | Outpatient (REF) | payer MEDICARE, MEDICAID, SELFPAY ==
--- NOTE | ~2023-02-01 | XR_ITS ---
EXAMINATION: XR CHEST CLINICAL INFORMATION: +PPD. COMPARISON: Most recent chest radiograph dated 05/03/2016. TECHNIQUE: 2 views of the chest were obtained. FINDINGS: The lungs are clear. The cardiomediastinal silhouette is normal in size. There is no pleural effusion or pneumothorax. No acute osseous abnormality. XR/XR chest 2V IMPRESSION: No acute cardiopulmonary findings.
== END 2023-02-01 11:27 | disposition home or self-care (01) ==
LOC: HO.XRAY 11:26
PROVIDERS: PCP Internal Medicine; Visit Provider Internal Medicine
DX: R76.11 Nonspecific reaction to tuberculin skin test without active tuberculosis (principal)
CPT/HCPCS: 71046

== ENCOUNTER 2023-02-15 14:22 | Outpatient (AMB) | payer MEDICARE, MEDICAID, SELFPAY ==
--- NOTE | 2023-02-15 14:22 | MHC.OFFVIS ---
Intake Intake Visit Reasons: ref., skin test without active tbt. Allergies No Known Allergies Allergy (Verified 12/29/22 11:38) PFSH Medical History Benign essential hypertension 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 Cognitive impairment Depression Left-sided low back pain with left-sided sciatica Primary insomnia Pure hypercholesterolemia Smoker Surgical History History of cataract surgery Family History Father Medical history unknown Mother Medical history unknown Social History Housing: House Alcohol intake: current Alcohol intake frequency: a few times a week Patient Tobacco Use Status: Current everyday Tobacco user Tobacco use type: Cigarette Cigarettes Per Day: 10 e-Cigarette/Vaping Use: Never Used Second Hand Smoke Exposure: No service: No Current occupational status: retired Cognitive needs: No Hearing needs: No Vision needs: No Physical Exam Const Other: Coding
[2023-02-15 14:35] VITALS: BP 100/60; PULSE 91; TEMP 37.3; O2SAT 96; BMI 23.5
--- NOTE | 2023-02-15 14:38 | MHC.OFFVIS ---
Intake Vital Signs 02/15/23 14:35 Height 5 ft 5 in Weight 141 lb BMI 23.5 BP 100/60 Blood Pressure Location Rt brachial Position Sitting Pulse 91 Pulse Source Pulse Oximeter Temp 99.2 F Temp Source Oral Pulse Oximetry (%) 96 Intake Visit Reasons: ref., skin test without active tbt. Senior Inspector Required: Yes Senior Inspector Name: Trevon Prasad CMA Allergies No Known Allergies Allergy (Verified 02/15/23 14:44) HPI ref., skin test without active tbt. 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 She has had this in past and not sure if received preventive medication. She denies active tuberculosis. [facility] Medical History Cognitive impairment Smoker Depression Primary insomnia Left-sided low back pain with left-sided sciatica 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 Pure hypercholesterolemia Benign essential hypertension Surgical History History of cataract surgery Family History Father Medical history unknown Mother Medical history unknown Social History Housing: House Alcohol intake: current Alcohol intake frequency: a few times a week Patient Tobacco Use Status: Current everyday Tobacco user Tobacco use type: Cigarette Cigarettes Per Day: 10 e-Cigarette/Vaping Use: Never Used Second Hand Smoke Exposure: No service: No Current occupational status: retired Cognitive needs: No Hearing needs: No Vision needs: No Review of Systems Const All systems reviewed & are unremarkable except as noted in HPI and below Physical Exam Vital Signs: Last Vital Signs Temp 99.2 F 02/15/23 14:35 Pulse 91 02/15/23 14:35 BP 100/60 02/15/23 14:35 Pulse Ox 96 02/15/23 14:35 BMI result Body Mass Index 23.5 Const General: cooperative Orientation/consciousness: patient oriented x3 HEENT Head: Yes normal to inspection Mouth: Normal oral and palatal mucosa present Eyes General: appearance normal, both eyes and all related structures Pupils: Equal, round and reactive pupils present Resp Effort & Inspection: normal respiratory effort Cardio Rate: regular rate Rhythm: regular rhythm GI Palpation (GI): Soft to palpation and nontender General: Yes no CVA tenderness Back/Spine/Pelvis Back: no CVA tenderness Skin General skin exam: no rashes or lesions noted Neuro General: patient oriented x3 Cranial nerves: Yes CN's II-XII intact bilaterally and Yes Equal, round and reactive pupils present Extrem General: Yes normal to inspection Psych Appearance: grossly normal Assessment & Plan Assessment & Plan (1) Positive PPD: Comment: There are 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 Watch for symptoms Consider treatment if becomes immunosuppressed. Coding Level of Care Code Est Pt Level 3 (33361) Diagnoses Positive PPD R76.11
== END 2023-02-15 15:29 | disposition home or self-care (01) ==
PROVIDERS: PCP Internal Medicine; Visit Provider Internal Medicine
DX: R76.11 Nonspecific reaction to tuberculin skin test without active tuberculosis (principal)
CPT/HCPCS: 99213

== ENCOUNTER → 2023-02-15 14:22 | Outpatient (BNVA) | payer MEDICARE, MEDICAID, SELFPAY | PROVIDERS: PCP Internal Medicine; Visit Provider Internal Medicine | DX: R76.11 Nonspecific reaction to tuberculin skin test without active tuberculosis (principal) | CPT/HCPCS: 99212 ==

== ENCOUNTER 2023-03-22 10:40 | Outpatient (AMB) | payer MEDICARE, MEDICAID, SELFPAY ==
[2023-03-22 10:43] VITALS: BP 132/80; PULSE 90; O2SAT 98; BMI 24.4
--- NOTE | 2023-03-22 10:43 | MHC.PC.OV ---
Vital Signs 03/22/23 10:43 Height 5 ft 5 in Weight 146 lb 9.718 oz BMI 24.4 BP 132/80 Blood Pressure Location Lt brachial Position Sitting Pulse 90 Pulse Source Pulse Oximeter Pulse Oximetry (%) 98 Oxygen Delivery Method Room Air Intake Visit Reasons: Annual Exam Manager Business Operations Required: No Accompanied by: Self / Same As Patient Allergies No Known Allergies Allergy (Verified 03/22/23 11:04) Medication List - Last Reconciled 03/22/23 by Chapin Pittman MD atenolol 100 mg PO DAILY atorvastatin 10 mg PO BEDTIME citalopram 20 mg PO DAILY clopidogrel 75 mg PO DAILY enalapril maleate 20 mg PO DAILY hydrochlorothiazide 50 mg PO DAILY Tobacco use date assessed: 03/22/23 Fall risk assessment: No Falls in past year Last assessed Fall Risk: 03/22/23 Dental Screening Dental Screen Date: 03/22/23 Did you have a dental visit in the last 12 months?: No Did you have a dental problem in the last 6 months where you did not have access to dental care?: No Was dental information given to patient?: No HPI Annual Exam HPI Details Patient comes in today for his annual physical examination - is accompanied again by his grandson States that he feels okay and states that he mainly needs all of his Rx refilled He denies any headaches or dizziness Denies any chest pains, no SOB No nausea/vomiting, no abdominal pain No change in bowel habits noted Denies any acute urinary symptoms States that he sleeps well at night without any issues He was referred for colonoscopy screening last year but it appears he never made it to his appt with GI in August 2022 States that he feels that the colonoscopy would be too uncomfortable for him and is now declining to go for the procedure; he agrees to get Cologuard testing done if insurance will approve the test He had some labs done back in October 2022; has had no other follow up labs done since [facility] Medical History Cognitive impairment Smoker Depression Primary insomnia Left-sided low back pain with left-sided sciatica 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 Pure hypercholesterolemia Benign essential hypertension Surgical History History of cataract surgery Family History Father Medical history unknown Mother Medical history unknown Social History Housing: House Alcohol intake: current Alcohol intake frequency: a few times a week Patient Tobacco Use Status: Current everyday Tobacco user Tobacco use type: Cigarette Cigarettes Per Day: 10 e-Cigarette/Vaping Use: Never Used Second Hand Smoke Exposure: No service: No Current occupational status: retired Cognitive needs: No Hearing needs: No Vision needs: No Questionnaire PHQ-9 Over the last 2 weeks, how often have you been bothered by any of the following problems? 1. Little interest or pleasure in doing things: nearly every day 2. Feeling down, depressed, or hopeless: nearly every day 3. Trouble falling or staying asleep, or sleeping too much: not at all 4. Feeling tired or having little energy: not at all 5. Poor appetite or overeating: not at all 6. Feeling bad about yourself - or that you are a failure or have let yourself or your family down: not at all 7. Trouble concentrating on things, such as reading the newspaper or watching television: not at all 8. Moving or speaking so slowly that other people could have noticed. Or the opposite - being so fidgety or restless that you have been moving around a lot more than usual: not at all 9. Thoughts that you would be better off or of hurting yourself in some way: not at all Total score: 6 Depression Screening Interpretation: Positive Depression Screening Follow-up: Existing condition and In treatment Depression Screening Done: Yes 12144 - PHQ-9 Billing: Yes Source: Developed by Drs. Behzad Xie, Sirisha Pedraza, Mata Mejia and colleagues, with an educational gerardo from [employer]. Thrive Questionnaire Date Thrive assessed: 03/22/23 I am a: Patient What is your living situation today?: I have a steady place to live Within the past 12 months, did the food you bought not last and you didn't have the money to get more?: Never true Within the past 12 months, did you worry whether your food would run out before you got money to buy more?: Never true Do you have trouble paying for medicines?: No Do you have trouble getting transportation to medical appointments?: No Do you have trouble paying your heating and electricity bill?: No Do you have trouble taking care of your child, family member or friend?: No Do you have trouble with day-to-day activities such as bathing, preparing meals, shopping, managing finances, etc.?: No Are you currently unemployed and looking for a job?: No Are you interested in more education?: No Please select the resources that you would like help with: None Currently or been in a relationship where the following occur: no concerns reported AUDIT C Alcohol Use Questionnaire (AUDIT-C) 1. How often do you have a drink containing alcohol?: Never 3. How often do you have six or more drinks on one occasion?: Never Total Score: 0 Score Reviewed/Action Taken: Yes FIONA-7 AMB Questionnaire FIONA-7 Date FIONA - 7 assessed: 03/22/23 Feeling nervous, anxious, or on edge: 3 = Nearly every day Not being able to stop or control worryin = Nearly every day Worrying too much about different things: 0 = Not at all Trouble relaxin = Not at all Being so restless that it is hard to sit still: 0 = Not at all Becoming easily annoyed or irritable: 0 = Not at all Feeling afraid as if something awful might happen: 0 = Not at all Total FIONA-7 score (0-4 normal; 5-9 mild; 10-14 moderate; 15-21 severe): 6 Source: Developed by Drs. Behzad Xie, Sirisha Pedraza, Mata Mejia and colleagues, with an educational gerardo from [employer]. FIONA-7 Assessment Billing FIONA-7 Assessment Tool: FIONA-7 Assessment 35055 Review of Systems Const Denies chills, Denies difficulty sleeping, Denies fatigue, Denies fever(s) and Denies headache(s) Eyes Denies blurry vision (in both eyes - corrected now with prescription glasses) and Denies itchy eyes ENT Denies dysphagia, Denies dizziness, Denies otalgia, Denies headache(s), Denies neck pain, Denies odynophagia and Denies sore throat Card Denies chest pain, Denies palpitations and Denies dyspnea Resp Denies cough, Denies dyspnea and Denies wheezing GI Denies abdominal pain, Denies constipation, Denies dysphagia, Denies heartburn, Denies diarrhea, Denies nausea, Denies odynophagia and Denies vomiting Denies dysuria, Denies nocturia and Denies urinary frequency Musc Denies back pain, Denies arthralgias, Denies joint swelling, Denies muscle weakness and Denies neck pain Skin/Breast Reports dry skin (on both hands) and Denies rash Neuro Reports confusion (in part due to language barrier and also due to some cognitive impairment), Denies dizziness and Denies headache(s) Psych Reports confusion (in part due to language barrier and also due to some cognitive impairment) Endo Denies fatigue and Denies palpitations Aller/Immun Denies itchy eyes and Denies wheezing Physical exam (Primary Care) Vital Signs: Last Vital Signs Pulse 90 03/22/23 10:43 BP 132/80 03/22/23 10:43 Pulse Ox 98 03/22/23 10:43 Oxygen Delivery Method Room Air 03/22/23 10:43 BMI result Body Mass Index 24.4 Tobacco/Smoking Status: Tobacco use Status Tobacco use date assessed 03/22/23 03/22/23 10:51 Patient Tobacco Use Status Current everyday Tobacco 03/22/23 10:51 Tobacco use type Cigarette 03/22/23 10:51 e-Cigarette/Vaping Use Never Used 03/22/23 10:51 PHQ-9: PHQ-9 Score PHQ-9: Total score 6 03/22/23 10:51 Depression Screening Interpretation: Positive Depression Screening Follow-up: Existing condition and In treatment Thrive Assessment: Date of Thrive Assessment Date Thrive assessed 03/22/23 03/22/23 10:51 Currently or been in a relationship where the following occur: no concerns reported Const General: confusion (in part due to language barrier and also due to some cognitive impairment) Orientation/consciousness: confusion (in part due to language barrier and also due to some cognitive impairment) Limitations: ambulation with walker HENMT Head: Yes normocephalic Ears: external ears normal, TM's normal bilaterally and EAC's normal General nose exam: No nasal discharge present Face and sinus: Yes normal facial exam and Yes sinuses nontender Teeth and gingiva: dentition normal Throat: Yes posterior oropharynx normal and Yes tonsils normal (no TP congestion) Eyes Eyelids: Yes eyelids normal Conjunctivae: conjunctivae normal Pupils: Equal, round and reactive pupils present EOM: EOMs intact bilaterally Neck Neck: Yes no lymphadenopathy and Yes supple Thyroid: Thyroid normal Resp Auscultation: clear to auscultation bilaterally, no rales and no wheezes Cardio Rate: regular rate Rhythm: regular rhythm Heart sounds: no murmurs GI Palpation (GI): Soft to palpation and nontender Auscultation: normal bowel sounds General: Yes no CVA tenderness Back/Spine/Pelvis Back: no CVA tenderness Thoracic/Lumbar Spine: thoracic and lumbar spine normal to inspection Skin Other: (+) severe dry skin on both hands; no open wounds noted Wounds: no wounds Neuro General: moves all extremities, no focal motor deficits, CN's II-XI intact bilaterally and confusion (in part due to language barrier and also due to some cognitive impairment) Cranial nerves: Yes CN's II-XII intact bilaterally and Yes Equal, round and reactive pupils present Gait exam (Neuro): Normal gait present Extrem General: Yes no clubbing, cyanosis or edema Results Reviewed Results Reviewed: Laboratory Tests 10/20/22 10/21/22 23:25 05:36 WBC 10.4 Hgb 12.7 L Hct 37.4 L Plt Count 253 Sodium 137 Potassium 4.0 D Creatinine 0.75 Estimated GFR > 60 Calcium 8.4 AST 85 H ALT 54 H Vitamin B12 221 Assessment and Plan Assessment & Plan (1) Annual physical exam: Code(s): Z00.00 - Encounter for general adult medical examination without abnormal findings Plan: Check labs STAN (2) Benign essential hypertension: Code(s): I10 - Essential (primary) hypertension Plan: Reinforced low sodium diet - goal is systolic BP of at least 130 mm or less Continue Atenolol 100 mg QD, HCTZ 50 mg QD and Enalapril 20 mg QD - Rx refilled (3) Pure hypercholesterolemia: Code(s): E78.00 - Pure hypercholesterolemia, unspecified Plan: Reinforced low cholesterol diet Continue Atorvastatin 10 mg QD Will recheck his fasting lipids STAN for follow up - he has not had his cholesterol levels checked in a few years now (4) 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: Comment: S/P CVA in 2015 with minimal residual deficits Code(s): I63.512 - Cerebral infarction due to unspecified occlusion or stenosis of left middle cerebral artery Plan: Continue Clopidogrel 75 mg QD Was also on Aspirin 81 mg QD in the past but is currently no longer on it (5) Cognitive impairment: Code(s): R41.89 - Other symptoms and signs involving cognitive functions and awareness Plan: Patient appears to have some confusion and is unable to manage his meds on his own - family helps him with this Cognitive impairment may be partly due to his CVA but may also be due to language barrier or other social issues, including education level and ability to read and write (6) Dry skin dermatitis: Comment: of both hands Code(s): L85.3 - Xerosis cutis Plan: He was previously referred to dermatology for further evaluation and management of this issue but it looks like he never scheduled an appointment Will start him on Lac Hydrin 5% lotion BID PRN for now Advised that we can revisit dermatology referral if the prescribed lotion does not help at all with his dry skin (7) Impaired vision in both eyes: Code(s): H54.3 - Unqualified visual loss, both eyes Plan: He was referred to and seen by ophthalmology ([facility]) a few months ago and is now wearing prescription glasses - states that his vision has improved a lot with the corrective lenses (8) Anemia: Code(s): D64.9 - Anemia, unspecified Qualifiers: Anemia type: unspecified type Qualified Code(s): D64.9 - Anemia, unspecified Plan: He was slightly anemic back in October 2022 Will recheck his CBC STAN He will also be sent for colon cancer screening for further evaluation (9) Elevated LFTs: Code(s): R79.89 - Other specified abnormal findings of blood chemistry Plan: He is advised that his LFTs were significantly elevated when they were last checked in October 2022 and he should get these rechecked again STAN for follow up (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 Cook as scheduled for continuing surveillance (11) Primary insomnia: Code(s): F51.01 - Primary insomnia Plan: Sleep hygiene reinforced Used to take Trazodone 50 mg Q HS but is also no longer on it lately - states that he currently has no trouble sleeping at night (12) Depression: Code(s): F32.9 - Major depressive disorder, single episode, unspecified Qualifiers: Depression Type: unspecified Qualified Code(s): F32.9 - Major depressive disorder, single episode, unspecified Plan: Continue Citalopram 20 mg QD Used to see psychiatry but is unclear at this time whether he is still being seen or when he stopped seeing psychiatry if he is no longer seeing them - patient and grandson unable to provide info on this (13) Smoker: Code(s): F17.200 - Nicotine dependence, unspecified, uncomplicated Plan: Counseled again on smoking cessation - patient does not appear to have any intention or motivation to quit smoking at this time (14) Colon cancer screening: Code(s): Z12.11 - Encounter for screening for malignant neoplasm of colon Plan: He was previously referred for screening colonoscopy but never made it to his appt in August 2022; he now is declining to go for the procedure BUT agrees to do Cologuard testing instead - Cologuard ordered Plan Patient declined flu vaccine today Follow up in 4 months Orders: Orders TSH reflex Free T4 Today E78.00 - Pure hypercholesterolemia, unspecified UA CC w/rflx Micro + Cult Today R30.0 - Dysuria Prostate Specific Antigen Today N40.0 - Benign prostatic hyperplasia without lower urinary tract symptoms, Z00.00 - Encounter for general adult medical examination without abnormal findings Complete Blood Count Auto Diff Today I10 - Essential (primary) hypertension Lipid Panel Today E78.00 - Pure hypercholesterolemia, unspecified Comprehensive [place]. Panel Fast Today E78.00 - Pure hypercholesterolemia, unspecified Vitamin B12 and Folate Today E53.8 - Deficiency of other specified B group vitamins Vitamin D 25-OH Total Today E55.9 - Vitamin D deficiency, unspecified Hemoglobin A1c Today R73.9 - Hyperglycemia, unspecified Referrals Cologuard Test Z12.11 - Encounter for screening for malignant neoplasm of colon, Z12.12 - Encounter for screening for malignant neoplasm of rectum Medications: New ammonium lactate 5% (Lac-Hydrin Five) 1 appl topical BID 226 grams 3RF dry skin dermatitis L85.3 - Xerosis cutis Refilled atenolol 100 mg PO DAILY 90 tabs 1RF I10 - Essential (primary) hypertension hydrochlorothiazide 50 mg PO DAILY 90 tabs 1RF I10 - Essential (primary) hypertension atorvastatin 10 mg PO BEDTIME 90 tabs 1RF E78.00 - Pure hypercholesterolemia, unspecified citalopram 20 mg PO DAILY 90 tabs 1RF F32.9 - Major depressive disorder, single episode, unspecified clopidogrel 75 mg PO DAILY 90 tabs 1RF I63.512 - Cerebral infarction due to unspecified occlusion or stenosis of left middle cerebral artery enalapril maleate 20 mg PO DAILY 90 tabs 1RF I10 - Essential (primary) hypertension Review Patient declined Colonoscopy: 03/22/23 Coding Level of Care Code Est Pt Prev Care >65y(49047) Diagnoses Annual physical exam Z00.00 Benign essential hypertension I10 Pure hypercholesterolemia E78.00 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 I63.512 Cognitive impairment R41.89 Dry skin dermatitis L85.3 Impaired vision in both eyes H54.3 Anemia, unspecified type D64.9 Anemia type: unspecified type Elevated LFTs R79.89 Positive PPD R76.11 Primary insomnia F51.01 Depression, unspecified depression type F32.9 Depression Type: unspecified Smoker F17.200 Colon cancer screening Z12.11 Additional Codes FIONA-7 Assessment Billing - FIONA-7 Assessment Tool: FIONA-7 Assessment 20592 ([id number])
== END 2023-03-22 11:20 | disposition home or self-care (01) ==
PROVIDERS: Visit Provider Internal Medicine
DX: F32.9 Major depressive disorder, single episode, unspecified (principal)
CPT/HCPCS: 96127; 99397

== ENCOUNTER 2023-04-07 10:04 | Outpatient (REF) | payer MEDICARE, MEDICAID, SELFPAY ==
[2023-04-07 10:17] LABS: Appearance Urine Clear; Color Urine Yellow; Glucose Urine UA Negative (Negative); Leukocyte Esterase Urine Negative (Negative); Nitrite Urine Negative (Negative); Specific Gravity - Urine 1.015 (1.005-1.025); UMIC TRIGGER UACC YES; Urine Blood Negative (Negative); Urine Ketones Negative (Negative); Urine Protein 30 (1+) mg/dL (Neg-Trace)
[2023-04-07 10:19] LABS: Bacteria Urine None Seen (None Seen); Hyaline Casts Urine 0-2 /LPF (0-2); RBC Urine 0-2 /HPF (0-2); Squamous Epithelial Cell Urine 0-2 /HPF (0-2); WBC Urine 0-5 /HPF (0-5)
== END 2023-04-07 10:05 | disposition home or self-care (01) ==
LOC: HO.LNP 10:04
PROVIDERS: Visit Provider Internal Medicine
DX: R30.0 Dysuria (principal)
CPT/HCPCS: 81001

== ENCOUNTER 2024-06-27 11:28 | Outpatient (AMB) | payer MEDICARE, MEDICAID, SELFPAY ==
--- NOTE | 2024-06-27 11:31 | A.OFFPC_ITS ---
Vital Signs 06/27/24 11:33 Height 5 ft 5 in Weight 144 lb 2.917 oz BMI 24.0 BP 120/80 Blood Pressure Location Lt brachial Position Sitting Pulse 119 H Pulse Source Pulse Oximeter Temp 96.6 F L Temp Source Skin Pulse Oximetry (%) 97 Oxygen Delivery Method Room Air Intake Visit Reasons: Med. Review Intake Note: Patient is here to follow up on Med review. Manager Plan Required: Yes Manager Plan Language: Health And Wellness Manager Name: Kristy (tammy) Information Interpreted: non-clinical & clinical (pt decline outside sales professional service, prefer daughter in-law to translate.) Parcel Post Clerk: Present Accompanied by: haroon mejia Allergies No Known Allergies Allergy (Verified 06/27/24 11:36) Medication List - Last Reconciled 06/27/24 by Lizet Mccullough PA-C ammonium lactate 5% (Lac-Hydrin Five) 1 appl topical BID atenolol 100 mg PO DAILY atorvastatin 10 mg PO BEDTIME citalopram 20 mg PO DAILY clopidogrel 75 mg PO DAILY enalapril maleate 20 mg PO DAILY hydrochlorothiazide 50 mg PO DAILY Tobacco use date assessed: 06/27/24 Fall risk assessment: No Falls in past year Last assessed Fall Risk: 06/27/24 Dental Screening Dental Screen Date: 06/27/24 Did you have a dental visit in the last 12 months?: No Did you have a dental problem in the last 6 months where you did not have access to dental care?: No Was dental information given to patient?: No (no teeth) HPI Med. Review HPI Details 69-year-old female with past medical his tory of depression, previous history of CVA, insomnia, tobacco abuse, hypertension, hypercholesterolemia, anemia last seen 03/[address] Pittman coming in for medication review. Patient's [id number] provided translation for the duration of this visit. Formal translation was declined. Presenting for a wellness visit and follow-up for chronic conditions. Chronic smoking with no current interest in cessation interventions. Reports of chronic back pain due to previous falls associated with occupational hazards in [place]. Occasional constipation noted; contributing factors include limited water intake and physical inactivity. Denies any acute problems today. 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 Pure hypercholesterolemia Benign essential hypertension Surgical History History of cataract surgery Family History Father Medical history unknown Mother Medical history unknown Social History Housing: House Alcohol intake: current Alcohol intake frequency: 0-2 drinks per day Patient Tobacco Use Status: Current everyday Tobacco user Tobacco use type: Cigarette Cigarette Packs Per Day: 1 Cigarettes Per Day: 20 e-Cigarette/Vaping Use: Never Used Second Hand Smoke Exposure: Yes service: No Current occupational status: retired Cognitive needs: Yes (walker) Hearing needs: No Vision needs: No Questionnaire PHQ-9 Over the last 2 weeks, how often have you been bothered by any of the following problems? 1. Little interest or pleasure in doing things: not at all 2. Feeling down, depressed, or hopeless: not at all 3. Trouble falling or staying asleep, or sleeping too much: not at all 4. Feeling tired or having little energy: not at all 5. Poor appetite or overeating: not at all 6. Feeling bad about yourself - or that you are a failure or have let yourself or your family down: not at all 7. Trouble concentrating on things, such as reading the newspaper or watching television: not at all 8. Moving or speaking so slowly that other people could have noticed. Or the opposite - being so fidgety or restless that you have been moving around a lot more than usual: not at all 9. Thoughts that you would be better off or of hurting yourself in some way: not at all Total score: 0 Depression Screening Interpretation: Negative Depression Screening Done: Yes Source: Developed by Drs. Behzad Xie, Sirisha Pedraza, Mata Mejia and colleagues, with an educational gerardo from [employer]. Thrive Questionnaire Date Thrive assessed: 06/27/24 I am a: Patient What is your living situation today?: I have a steady place to live Within the past 12 months, did the food you bought not last and you didn't have the money to get more?: Never true Within the past 12 months, did you worry whether your food would run out before you got money to buy more?: Never true Do you have trouble paying for medicines?: No Do you have trouble getting transportation to medical appointments?: No Do you have trouble paying your heating and electricity bill?: No Do you have trouble taking care of your child, family member or friend?: No Do you have trouble with day-to-day activities such as bathing, preparing meals, shopping, managing finances, etc.?: No Are you currently unemployed and looking for a job?: No Are you interested in more education?: No Please select the resources that you would like help with: None Currently or been in a relationship where the following occur: No concerns reported THRIVE Score: 0 AUDIT C Alcohol Use Questionnaire (AUDIT-C) 1. How often do you have a drink containing alcohol?: Never Total Score: 0 FIONA-7 AMB Questionnaire FIONA-7 Date FIONA - 7 assessed: 06/27/24 Feeling nervous, anxious, or on edge: 0 = Not at all Not being able to stop or control worryin = Not at all Worrying too much about different things: 0 = Not at all Trouble relaxin = Not at all Being so restless that it is hard to sit still: 0 = Not at all Becoming easily annoyed or irritable: 0 = Not at all Feeling afraid as if something awful might happen: 0 = Not at all Total FIONA-7 score (0-4 normal; 5-9 mild; 10-14 moderate; 15-21 severe): 0 Source: Developed by Drs. Behzad Xie, Sirisha Pedraza, Mata Mejia and colleagues, with an educational gerardo from [employer]. Review of Systems Const Denies body aches, Denies chills, Denies fever(s), Denies headache(s) and Denies poor appetite Eyes Reports no additional complaints ENT Denies dysphagia, Denies dizziness, Denies headache(s) and Denies odynophagia Card Denies chest pain, Denies syncope, Denies edema, Denies irregular heart rhythm, Denies lightheadedness, Denies dyspnea and Denies dyspnea on exertion Resp Reports cough, Denies dyspnea and Denies dyspnea on exertion GI Denies abdominal pain, Denies constipation, Denies dysphagia, Denies diarrhea, Denies nausea, Denies odynophagia and Denies vomiting Reports no additional complaints Musc Reports abnormal gait and Reports back pain (chronic back pain ) Skin/Breast Reports system reviewed and no additional complaints, except as documented Neuro Reports abnormal gait, Denies dizziness, Denies syncope and Denies headache(s) Psych Reports no additional complaints Physical exam (Primary Care) Vital Signs: Last Vital Signs Temp 96.6 F L 06/27/24 11:33 Pulse 119 H 06/27/24 11:33 BP 120/80 06/27/24 11:33 Pulse Ox 97 06/27/24 11:33 Oxygen Delivery Method Room Air 06/27/24 11:33 BMI result Body Mass Index 24.0 Tobacco/Smoking Status: Tobacco use Status Tobacco use date assessed 06/27/24 06/27/24 11:35 Patient Tobacco Use Status Current everyday Tobacco 06/27/24 11:41 Tobacco use type Cigarette 06/27/24 11:41 e-Cigarette/Vaping Use Never Used 06/27/24 11:41 PHQ-9: PHQ-9 Score PHQ-9: Total score 0 06/27/24 12:26 Depression Screening Interpretation: Negative Thrive Assessment: Date of Thrive Assessment Date Thrive assessed 06/27/24 06/27/24 11:35 Currently or been in a relationship where the following occur: No concerns reported Const General: cooperative, healthy appearing, comfortable and no acute distress Orientation/consciousness: patient oriented x3 HENMT Head: Yes normocephalic Ears: hearing grossly normal bilaterally General nose exam: Normal external nose present Eyes General: appearance normal, both eyes and all related structures Conjunctivae: conjunctivae normal Neck Neck: Yes full ROM and Yes no lymphadenopathy Resp Effort & Inspection: normal respiratory effort Auscultation: clear to auscultation bilaterally, no crackles, no rales, no rhonchi and no wheezes Cardio Rate: regular rate Rhythm: regular rhythm Skin General skin exam: no rashes or lesions noted Neuro General: patient oriented x3 Gait exam (Neuro): Normal gait present Extrem General: Yes normal to inspection, Yes full ROM and No edema Psych Affect: normal affect Attitude: cooperative Insight: Good insight present (Psych) Judgement: Good judgement present (Psych) Coding Level of Care Code Est Pt Level 4 (74038) Diagnoses Pure hypercholesterolemia E78.00 Benign essential hypertension I10 Nicotine dependence F17.200 Depression, unspecified depression type F32.9 Depression Type: unspecified 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 Triglyceride goal of less than 150 and LDL goal of less than 70. Continue on atorvastatin 10 mg. Ordered for updated blood work. (2) Benign essential hypertension: Code(s): I10 - Essential (primary) hypertension Category: Medical Plan: Continue on current blood pressure medication. Avoid salt intake and encourage healthy diet and regular exercise. Currently on hydrochlorothiazide 50 mg, enalapril 20 mg, atenolol 100 mg (3) Nicotine dependence: Code(s): F17.200 - Nicotine dependence, unspecified, uncomplicated Category: Medical Plan: Smoking cigarettes and the use of tobacco can be harmful. We discussed the importance of stopping and options to aid in smoking cessation. Patient declining nicotine replacement therapy. Also recommending lung cancer screening program which was declined by patient today. (4) Depression: Code(s): F32.9 - Major depressive disorder, single episode, unspecified Category: Medical Qualifiers: Depression Type: unspecified Qualified Code(s): F32.9 - Major depressive disorder, single episode, unspecified Plan: Feels it on this dose. Currently on citalopram 20 mg. 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 Ordered for updated blood work on patient and advised to follow up in 3 months with PCP. Plan My plan focuses on the continuation of the patient's current antihypertensive regimen given the blood pressure stability and aims to obtain updated blood work, specifically focusing on fasting cholesterol levels. I discussed the implications and alternatives to smoking, encouraging smoking cessation strategies despite the patient's reluctance. I proposed annual lung cancer screening and colorectal cancer screening due to the patient?s chronic smoking, but these were not accepted at this time. A follow-up appointment was established in one month to monitor and reassess patient status and compliance. Patient was informed and verbally consented to the use of an ambient scribe for clinic note documentation during this visit. This note was constructed using voice recognition software. While every effort has been made to ensure accuracy and motorboat operator, still areas may have been included sometimes these areas may affect the content or meeting of the given symptoms. Total time spent caring for the patient today was 30 minutes. This includes time spent before the visit reviewing the chart, time spent during the visit, and time spent after the visit and documentation. Orders: Orders Comprehensive Met. Panel Today I10 - Essential (primary) hypertension, Z00.00 - Encounter for general adult medical examination without abnormal findings Lipid Panel Today E78.00 - Pure hypercholesterolemia, unspecified, I10 - Essential (primary) hypertension TSH reflex Free T4 Today I10 - Essential (primary) hypertension, Z00.00 - Encounter for general adult medical examination without abnormal findings Vitamin B12 and Folate Today I10 - Essential (primary) hypertension, Z00.00 - Encounter for general adult medical examination without abnormal findings Free T4 (Free Thyroxine) Today I10 - Essential (primary) hypertension, Z00.00 - Encounter for general adult medical examination without abnormal findings Hemoglobin A1c Today Z13.1 - Encounter for screening for diabetes mellitus Complete Blood Count Auto Diff Today I10 - Essential (primary) hypertension, Z00.00 - Encounter for general adult medical examination without abnormal fin dings Vitamin D 25-OH Total Today I10 - Essential (primary) hypertension, Z00.00 - Encounter for general adult medical examination without abnormal findings UA CC w/rflx Micro + Cult Today I10 - Essential (primary) hypertension, R35.89 - Other polyuria Medications: Refilled 2 atorvastatin 10 mg PO BEDTIME 90 tabs 0RF E78.00 - Pure hypercholesterolemia, unspecified citalopram 20 mg PO DAILY 90 tabs 0RF F32.9 - Major depressive disorder, single episode, unspecified hydrochlorothiazide 50 mg PO DAILY 90 tabs 0RF I10 - Essential (primary) hypertension ammonium lactate 5% (Lac-Hydrin Five) 1 appl topical BID 226 grams 3RF dry skin dermatitis L85.3 - Xerosis cutis atenolol 100 mg PO DAILY 90 tabs 0RF I10 - Essential (primary) hypertension clopidogrel 75 mg PO DAILY 90 tabs 0RF I63.512 - Cerebral infarction due to unspecified occlusion or stenosis of left middle cerebral artery enalapril maleate 20 mg PO DAILY 90 tabs 0RF I10 - Essential (primary) hypertension
[2024-06-27 11:33] VITALS: BP 120/80; PULSE 119; TEMP 35.9; O2SAT 97; BMI 24.0
--- OUTSIDE RECORDS SUMMARY | 2024-06-27 12:08 | XMS_ITS | Clinical Summary ---
Author Organization [facility] Address [address] [place] [address] Care Team Providers Care Recruiter Account Manager Name Role Phone Patient, Has No Pcp Or Ref Primary Care Provider Unavailable Allergies No known active allergies Medications No known medications Social History Tobacco Use Types Packs/Day Years Used Date Smoking Tobacco: Never Assessed Sex and Gender Information Value Date Recorded Sex Assigned at Not on file Legal Sex Male 6:39 PM EDT Gender Identity Not on file Sexual Orientation Not on file Last Filed Vital Signs Vital Sign Reading Time Taken Comments Blood Pressure 119/75 11/17/2022 11:48 PM EDT Pulse 69 11/17/2022 11:48 PM EDT Temperature 36.8 ??C (98.2 ??F) 11/17/2022 11:48 PM E DT Respiratory Rate 18 11/17/2022 11:48 PM EDT Oxygen Saturation 97% 11/17/2022 11:48 PM EDT Inhaled Oxygen Concentration - - Weight - - Height - - Body Mass Index - - Plan of Treatment Health Maintenance Due Date Last Done Comments Cologuard 1957 Colon Cancer Screening 1955 Colonoscopy 1957 FOBT / Fit Test 1957 Hepatitis C Screening 1957 Sigmoidoscopy 1957 DTaP,Tdap,and Td Vaccines (1 - Tdap) 1979 Zoster Vaccines (1 of 2) 2007 Pneumococcal Vaccine: 50+ Ye ars (1 of 1 - PCV) 2022 COVID-19 Vaccine ( - 2023-2 5 season) 2024 Influenza Vaccine (#1) 2024 Alcohol/Substance Use Screening 05/15/2024 Depression Screening and Follow-Up 05/15/2024 Fall Risk Screening 05/15/2024 Health Care Proxy Review 05/15/2024 Social Drivers of Health Ariana ual Screening 05/15/2024 RSV Vaccine (60+ years old a nd patients) (1 - 1-dose 75+ series) 02/28/2032 Hepatitis B Vaccines Aged Out No long er eligible based on patient's age to complete this topic Insurance MEDICARE Care Teams Recruiter Account Manager Relationship Specialty Start Date End Date Patient, Has No Pcp Or Ref DO NOT EDIT THIS RECORD VIA PROVIDER ON THE FLY PCP - General Route Driver Salesperson 11/17/22
--- OUTSIDE RECORDS SUMMARY | 2024-06-27 12:08 | XMS_ITS | Referral Summary ---
Author Organization [facility] Address [address] [place] [address] Care Team Providers Care Galvanizing Pot Runner Name Role Phone Patient, Has No Pcp [...] Mass Index - - Plan of Treatment Not on file Insurance [facility] MEDIC[facility] Care Teams Galvanizing Pot Runner Relationship Specialty Start Date End Date Patient, Has No Pcp Or Ref DO NOT EDIT THIS RECORD VIA PROVIDER ON THE FLY PCP - General Computer Service Technician 11/17/22
== END 2024-06-27 11:59 | disposition home or self-care (01) ==
PROVIDERS: PCP Internal Medicine
DX: E78.00 Pure hypercholesterolemia, unspecified (principal); I63.512 Cerebral infarction due to unspecified occlusion or stenosis of left middle cerebral artery; I10 Essential (primary) hypertension; F17.200 Nicotine dependence, unspecified, uncomplicated; F32.9 Major depressive disorder, single episode, unspecified

== ENCOUNTER → 2024-06-27 11:28 | Outpatient (BNVA) | payer MEDICARE, MEDICAID, SELFPAY | PROVIDERS: PCP Internal Medicine | DX: E78.00 Pure hypercholesterolemia, unspecified (principal); I10 Essential (primary) hypertension; F32.9 Major depressive disorder, single episode, unspecified; F17.200 Nicotine dependence, unspecified, uncomplicated; Z71.6 Tobacco abuse counseling | CPT/HCPCS: 99212 ==

== ENCOUNTER 2024-12-07 13:30 | Inpatient (IN) | payer MEDICARE, MEDICAID, SELFPAY ==
[2024-12-07] VITALS (15 sets, daily range): BP systolic 95–121; BP diastolic 51–79; PULSE 75–96; RESP 18–24; TEMP 36.8–37.6; O2SAT 93–96; BMI 24.4
--- NOTE | ~2024-12-07 | XR_ITS ---
CLINICAL HISTORY: R O FOREIGN METALLIC BODY IN ABDOMEN PELVIC REGION. --- Additional Notes or Special Instructions: R O FOREIGN METALLIC BODY IN ABDOMEN PELVIC REGION. 1 view abdomen Comparison: None provided Findings: No pneumoperitoneum or pneumatosis. Extensive gaseous distention of bowel. No bowel dilatation. There is contrast within the renal collecting systems and urinary bladder. No abnormal calcifications. No acute fractures. IMPRESSION: There is no radiopaque foreign body. This document has been electronically signed by: Miranda Navarro MD on 12/07/2024 18:58:08
--- NOTE | ~2024-12-07 | CT_ITS ---
CLINICAL HISTORY: fall, found down, R sided weakness CT angiography head and neck with contrast. 3D Postprocessing. Comparison: CT/SR - CT HEAD FOR STROKE - 12/07/24 13:51 EDT Findings: Aortic arch and cervical great vessels are patent with no aneurysm, dissection, hemodynamically significant stenoses, or occlusion. Foci of calcific plaque formation are noted within the bilateral carotid bulbs. There is moderate atherosclerosis with moderate stenosis of the distal intracranial portion of the right vertebral artery. There is very limited flow within the left posterior cerebral artery with likely occlusion distally. Remaining intracranial arteries are patent with no aneurysm, dissection, hemodynamically significant stenoses, or occlusion. 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 There are acute infarcts involving the left thalamus and left occipital lobe. The visualized thyroid gland is unremarkable. No cervical mass or fluid collection. Lung apices clear. No acute fracture. IMPRESSION: 1. Very limited flow within the left posterior cerebral artery with likely occlusion distally. 2. There is a focus of moderate stenosis of the intracranial portion of the right vertebral artery. 3. Patent CTA neck. 4. Acute infarcts of the left thalamus and left occipital lobe. This document has been electronically signed by: Miranda Navarro MD on 12/07/2024 14:41:42
--- NOTE | ~2024-12-07 | MR_ITS ---
CLINICAL HISTORY: Right-sided paralysis and dysarthria Pt motion throughout exam. Best possible images obtained. MR Brain without gadolinium Comparison: CT/SR - CT ANGIO HEAD NECK STROKE - 12/07/24 13:[address]/SR - CT HEAD FOR STROKE - 12/07/24 13:51 EDT Findings: No restricted diffusion. Acute infarcts in the left thalamus, left occipital lobe and left inferomedial temporal lobe. No acute intracranial hemorrhage. Regional sulcal effacement without midline shift or downward herniation. Left distal ROUTE SALES DELIVERY DRIVER flow void is not seen. Encephalomalacia in the left temporal lobe and basal ganglia. Periventricular and subcortical T2 white matter hyperintensities likely chronic small-vessel ischemic changes. The orbits are normal. Mucosal thickening in the ethmoid air cells. No focal bone lesion. IMPRESSION: 1. Acute infarcts in the left thalamus, left occipital lobe and left inferior medial temporal lobe 2. Left distal ROUTE SALES DELIVERY DRIVER flow void not visualized 3. Regional sulcal effacement without midline shift or herniation This document has been electronically signed by: Gilmer Carlisle MD on 12/07/2024 20:20:08
--- NOTE | ~2024-12-07 | XR_ITS ---
CLINICAL HISTORY: crackles 1 view chest x-ray Comparison: CR/SR - XR CHEST 2 VIEWS - 02/01/23 12:01 EDT Findings: The lungs are clear. Heart size is normal. There is elongation of the aorta. No acute fracture. IMPRESSION: 1. No acute findings. This document has been electronically signed by: Miranda Navarro MD on 12/07/2024 16:09:56
--- NOTE | ~2024-12-07 | CT_ITS ---
CLINICAL HISTORY: R sided weakness --- Additional Notes or Special Instructions: unwitnessed fall, found down, R sided weakness CT head without contrast Comparison: CT/SR - CT HEAD WITHOUT IV CONTRAST - 10/20/22 17:51 EDT Findings: No intra-axial mass, midline shift, hydrocephalus, or acute hemorrhage. Large chronic left middle cerebral artery infarct without change. New areas of hypodensity within the left thalamus and left occipital lobe. Generalized involutional change brain parenchyma, advanced for age. There is no sinus or mastoid fluid. The orbits are within normal limits. No skull fracture. IMPRESSION: Acute left MACHINERY MECHANIC infarct involving the left thalamus and left occipital lobe. This document has been electronically signed by: Miranda Navarro MD on 12/07/2024 14:14:44
--- NOTE | 2024-12-07 13:42 | ECG_ITS ---
Test Reason : ? STROKE Blood Pressure : */* mmHG Vent. Rate : 79 BPM Atrial Rate : * BPM P-R Int : * ms QRS Dur : 88 ms QT Int : 392 ms P-R-T Axes : * -11 -58 degrees QTcB Int : 449 ms Normal sinus rhythm T wave abnormality, consider inferior ischemia Abnormal ECG When compared with ECG of 10-Aug-2015 21:59, T wave inversion now evident in Inferior leads Nonspecific T wave abnormality now evident in Anterior leads Referred By: Chester Randall Electronically Signed By: Keaton Maya
[2024-12-07 13:49] LABS: Glucose, Whole Blood 235 mg/dL (60-115)
--- NOTE | 2024-12-07 13:50 | PC.NURSE ---
upon this nurse obtaining report, a certified court/medical interpreter came to bedside, pt was unable to answer questions, this nurse noticed that the patient was not moving his right upper or lower extremities, when this nurse asked the patient to lift his rt arm, pt took his left arm, grabbed his rt arm and lifted it up. pt let go of his arm and it fell, this nurse then lifted his rt arm and it again just fell, pt was unable to lift or move his rt leg, provider was immediately notified, POC was obtained, IVs inserted and pt went direct to CT scan. will obtain vitals when pt returns.
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
[2024-12-07 14:03] LABS: MANUAL DIFF FLAG NO
[2024-12-07 14:06] LABS: Hematocrit 48.4 % (42.0-52.0); Hemoglobin 16.4 g/dl (14.0-18.0); Imm Gran Abs Auto 0.25 X10*3/uL (0.00-0.03); Imm Gran Pct Auto 1.5 % (0.0-0.4); Lymphocytes Absolute Auto 2.4 X10*3/uL (1.2-4.9); Mean Corpuscular HGB Conc 33.9 g/dl (31.0-36.0); Mean Corpuscular Hemoglobin 29.9 pg (27.0-33.0); Mean Corpuscular Volume 88.2 fL (80.0-98.0); NRBC Abs Auto 0.000 X10*3/uL (0.0-0.012); NRBC Pct Auto 0.0 /100WBC (0.0-0.2); Platelet Count 303 X10*3/uL (160-400); Red Blood Count 5.49 X10*6/uL (4.60-5.80); White Blood Count 17.1 X10*3/uL (4.8-10.8)
[2024-12-07 14:16] LABS: Prothrombin Time Whole Bld POC 12.5 sec (11.1-13.5); ~PT, ~INR - Anti Coag Clinic 1.0 (0.9-1.1)
[2024-12-07] MEDS: iohexoL 350 MG/ML 100 ML INFUS..BTL IV (14:17)
[2024-12-07 14:22] LABS: INTERNATIONAL NORM RATIO 0.9 (0.9-1.1); Prothrombin Time 10.7 SEC (10.9-12.4)
[2024-12-07 14:24] LABS: Partial Thromboplastin Time 25.0 SEC (26.0-36.8)
[2024-12-07 14:26] LABS: Stroke Lab Use COMPLETE
[2024-12-07 14:34] LABS: Alanine Aminotransferase 21 U/L (0-40); Albumin Level 3.8 g/dL (3.5-5.0); Alkaline Phosphatase 68 U/L (39-117); Anion Gap 16 (12-20); Aspartate Amino Transferase 33 U/L (5-37); Blood Urea Nitrogen 17 mg/dL (9-16); Calcium 9.0 mg/dL (8.4-10.2); Carbon Dioxide 21 mmol/L (22-29); Chloride 101 mmol/L (96-108); Cholesterol 193 mg/dL (<200); Creatinine Clr Calc Pharmacy 32.4; Estimated Glomerular Filt Rate 38; HDL Cholesterol 55 mg/dL (>40); Potassium 3.8 mmol/L (3.3-5.1); Sodium 134 mmol/L (135-145); Total Protein 6.9 g/dL (6.5-8.0); Triglycerides 295 mg/dL (<150)
[2024-12-07 14:35] LABS: B Type Natriuretic Peptide < 10 pg/mL (<100)
[2024-12-07 14:40] LABS: VBG HCO3 25 mmol/L (22-26); VBG O2 % Saturation 72.0 %
[2024-12-07 14:42] LABS: Troponin-I High Sensitivity 4.1 ng/L (<3.5-35.0)
[2024-12-07 14:57] LABS: Venous Blood Gas Refer to POC result
--- NOTE | 2024-12-07 15:20 | PC.NURSE ---
patient was awake, unable to answer questions appropriately- had unrecognizable speech per life insurance underwriter, rt upper/lower extremities remained flaccid, labs were drawn, ekg performed, environmental monitoring technician applied- nsr on monitor, cspine precautions maintained, seizure pads placed for safety protection as patient was turning himself sideways in bed/fall precautions maintained. unable to obtain a pain rating with pain scale. rr is equal/course crackles throughout - pt to have cxr performed, call andraed within reach, plan of care ongoing.
--- NOTE | 2024-12-07 15:55 | PC.NURSE ---
cxr performed, pt has started moving RLE.
[2024-12-07] MEDS: Lactated Ringers 1,000 ML 999 ML IV (16:27)
[2024-12-07 16:43] LABS: Resp Syncy Virus RNA Qual PCR NEGATIVE (Negative); SARS COV2 PCR INHOUSE NEGATIVE (Negative)
--- NOTE | 2024-12-07 16:54 | PC.NURSE ---
pt was incontinent of large amount of urine, full bed changed performed, pt continues to be confused and unable to talk in full sentences that make sense, pt is rolling around in the bed/turning himself sideways and pulling at cords/tele monitoring, seizure pads in place for safety as patient attempts to turn himself sideways in the bed. radiation monitor nsr, vitals continue to be stable, rr equal/non labored- however pt continues to have non productive cough with crackles throughout- provider is aware, pt is actively moving the RLE at this point but is unable to move his RUE, call andrade within reach, plan of care ongoing.
[2024-12-07] MEDS: cefEPime HCl/D5W 2 GM/50 ML PIGGYBACK IV (17:42)
[2024-12-07] MEDS: Lactated Ringers 1,000 ML 100 ML IVCONT (18:13)
--- NOTE | 2024-12-07 18:57 | PM.IMHP ---
History of Present Illness Date of Service: 12/07/24 Attending physician on admission: Kris Osborne Chief Complaint: Right-sided weakness Jaswinder Kumar is a 69 years old Iranian-speaking man with past medical history significant for previous CVA, chronic anemia, essential hypertension, hyperlipidemia and ongoing tobacco smoking was brought to the emergency department by the fire department after finding him which between a bed and ottoman. It seems like he was cooking and his foot was burning triggering the fire alarm. He was found to have significant right-sided weakness and speech difficulty. On my evaluation, the patient was awake and alert. He was able to answer some of my questions and seems to understand what I was asking. However, speech was very slurred and broken. NIH on arrival 13. The interview was addressed in Iranian. He did not report any headache, double vision, chest pain, shortness on breath, cough, abdominal pain, nausea or vomiting. He said that he was able to walk before. He said he is a former alcohol abuser. In the ED, he was found to have stable vital signs. Blood workup was remarkable for leukocytosis of 17.1. Hemoglobin is 16.4 platelets 303. INR is 1.0. Venous blood gas showed pH of 7.34 and pCO2 46. There are no significant electrolyte imbalances. CO2 is 21, BUN 17 and creatinine 1.78. ETOH level is < 113. Viral testing for COVID-19, influenza and RSV is negative. Head CTA showed very limited flow within the left posterior cerebral artery with likely occlusion distally, focus on moderate stenosis of the intracranial portion of the right vertebral artery, patent CTA neck an acute infarct in the left thalamus and left occipital lobe. CXR is negative. ECG showed heart rate of 79 beats per minute, very poor quality to evaluate. According to ED provider, patient did not receive TNK due to not know last well time and no evaluation by interventional neurologist indicated. ED tx: NS 2 L bolus, cefepime 2 g IV, aspirin 300 mg p.o. Review of Systems Review of Systems: All 12 systems were reviewed and normal except as noted in HPI. 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 Pure hypercholesterolemia Benign essential hypertension Family History Father Medical history unknown Mother Medical history unknown Surgical History History of cataract surgery Social History Housing: House Alcohol intake: current Alcohol intake frequency: 0-2 drinks per day Patient Tobacco Use Status: Current everyday Tobacco user Tobacco use type: Cigarette Cigarette Packs Per Day: 1 Cigarettes Per Day: 20 e-Cigarette/Vaping Use: Never Used Second Hand Smoke Exposure: Yes Advance Directives: No Advance Directives Information Provided: No service: No Current occupational status: retired Cognitive needs: Yes (walker) Hearing needs: No Vision needs: No Meds Allergies Allergy/AdvReac Type Severity Reaction Status Date / Time No Known Allergies Allergy Verified 12/07/24 14:08 Active Medications: Current Medications Atorvastatin Calcium (Atorvastatin Calcium 80 Mg Tablet) 80 mg PO DAILY [facility] Enoxaparin Sodium (Enoxaparin Sodium 40 Mg/0.4 Ml Syringe) 40 mg SUBCUT Q24H [facility] Lactated Ringer's (Lr) 1,000 mls @ 100 mls/hr IVCONT .Q10H JULIA Stop: 12/08/24 03:29 Last Admin: 12/07/24 18:13 Dose: 100 mls/hr Ondansetron HCl (Ondansetron Hcl 4 Mg/2 Ml Vial) 4 mg IVPUSH Q8H PRN PRN Reason: Nausea and Vomiting Sodium Chloride (0.9 % Sodium Chloride Flush 3 Ml Syringe) 3 ml IVFLUSH QSHIFT [facility] Physical Exam Vital Signs and Narrative: Vital Signs: Last Vital Signs Temp 99.6 F 12/07/24 16:48 Pulse 85 12/07/24 16:48 Resp 18 12/07/24 16:48 BP 109/66 12/07/24 16:48 Pulse Ox 96 12/07/24 16:48 O2 Del Method Room Air 12/07/24 16:48 BMI result Body Mass Index 24.4 Constitutional - Awake and Alert, No apparent distress. HEENT - Atraumatic, PERRL, EOMI Heart - RRR, No murmurs Lungs - Normal lung expansion, Normal respiratory effort, No respiratory distress, CTA bilaterally Abdomen - NT / ND; +BS; No rebound or guarding Extremities - no calf tenderness bilaterally, no swelling Musculoskeletal - generalized atrophy Skin - Warm/Dry. No pallor. No jaundice. Neurological - Alert & oriented x3. Right facial droop. Mild dysarthria. Strength:RUE + RLE = 0/5; LUE + LLE = 5/5. Psychological - Depressed affect Results Labs 12/07/24 13:56 12/07/24 13:56 Labs: Laboratory Results - last 24 hr 12/07/24 12/07/24 12/07/24 13:46 13:56 14:12 MCV 88.2 MCH 29.9 MCHC 33.9 RDW 15.7 Plt Count 303 MPV 8.9 L Immature Gran % (Auto) 1.5 H Neut % (Auto) 75.5 H Lymph % (Auto) 13.7 L [place] % (Auto) 7.7 Eos % (Auto) 0.7 Baso % (Auto) 0.9 Lymph # (Auto) 2.4 [place] # (Auto) 1.3 H Eos # (Auto) 0.1 Baso # (Auto) 0.2 Abs Immat Gran (auto) 0.25 H Absolute Neuts (auto) 12.9 H Absolute Nucleated RBC 0.000 Nucleated RBC % (auto) 0.0 PT 10.7 L Whole Blood PT 12.5 INR 0.9 Whole Blood INR 1.0 APTT 25.0 L VBG pH VBG pCO2 VBG pO2 VBG HCO3 VBG O2 Saturation VBG Base Excess Anion Gap 16 Estim Creat Clear Calc 32.4 Estimated GFR 38 POC Glucose 235 H Random Glucose 232 H Lactic Acid Calcium 9.0 D Total Bilirubin 0.5 Direct Bilirubin 0.2 AST 33 ALT 21 Alkaline Phosphatase 68 Total Creatine Kinase 113 B-Natriuretic Peptide < 10 Total Protein 6.9 Albumin 3.8 Triglycerides 295 H Cholesterol 193 LDL Cholesterol, Calc 79 HDL Cholesterol 55 Ethyl Alcohol < 10 Influenza Type A (PCR) Influenza Type B (PCR) RSV RNA Qual (PCR) SARS-CoV-2 RNA (RT-PCR) 12/07/24 12/07/24 12/07/24 14:33 15:57 17:30 MCV MCH MCHC RDW Plt Count MPV Immature Gran % (Auto) Neut % (Auto) Lymph % (Auto) [place] % (Auto) Eos % (Auto) Baso % (Auto) Lymph # (Auto) [place] # (Auto) Eos # (Auto) Baso # (Auto) Abs Immat Gran (auto) Absolute Neuts (auto) Absolute Nucleated RBC Nucleated RBC % (auto) PT Whole Blood PT INR Whole Blood INR APTT VBG pH 7.34 VBG pCO2 46 VBG pO2 46 VBG HCO3 25 VBG O2 Saturation 72.0 VBG Base Excess -0.5 Anion Gap Estim Creat Clear Calc Estimated GFR POC Glucose Random Glucose Lactic Acid 1.3 Calcium Total Bilirubin Direct Bilirubin AST ALT Alkaline Phosphatase Total Creatine Kinase B-Natriuretic Peptide Total Protein Albumin Triglycerides Cholesterol LDL Cholesterol, Calc HDL Cholesterol Ethyl Alcohol Influenza Type A (PCR) NEGATIVE Influenza Type B (PCR) NEGATIVE RSV RNA Qual (PCR) NEGATIVE SARS-CoV-2 RNA (RT-PCR) NEGATIVE Assessment and Plan (1) Acute CVA (cerebrovascular accident): Status: Acute (2) Leukocytosis: Qualifiers: Leukocytosis type: unspecified Qualified Code(s): D72.829 - Elevated white blood cell count, unspecified Status: Acute Plan Jaswinder Kumar is a 69 years old Iranian-speaking man presents with: Acute cerebrovascular accident (left thalamus and left occipital lobe) associated with left posterior cerebral artery with likely occlusion distally. This also right vertebral artery moderate stenosis. Telemetry. NPO. Aspiration and fall precautions. Aspirin 81 mg p.o. daily when able as well as Plavix 75 mg p.o. daily. Increase atorvastatin to 80 mg p.o. at bedtime when able. Neuro checks every 2 hours. OT/PT/speech and swallow evaluation and treatment. Stroke education. Echocardiogram. Brain MRI without contrast. Neurology consult. Leukocytosis, likely secondary to above. No other SIRS criteria. Urinalysis is negative for UTI. CXR is negative for pneumonia. Blood cultures obtained in the ED -will follow results. Continue to monitor for now. Hyperlipidemia. Continue statin. Essential hypertension. Hold antihypertensive -permissive hypertension. Tobacco dependence. Tobacco cessation education. History of chronic anemia. Hemoglobin is 16.4. We will continue to monitor. DVT prophylaxis: Lovenox. Code status: Full I have spoken with patient's family, Zoe Leone, [id number] and informed about Jaswinder current medical issues; family is agreeable with plan. Patient will need hospitalization for at least 2 midnights for acute CVA treatment and evaluation; patient will need close monitoring of neurological status, antiplatelets therapy, statin evaluation by neurological service. Quality Stroke Does the patient have a stroke diagnosis?: No VTE Prior VTE?: No VTE Risk Level:: Medical - moderate - high VTE Device Contraindication: Treatment Not Indicated VTE Drug Contraindication: N/A - Med Ordered
--- NOTE | 2024-12-07 18:58 | PC.NURSE ---
Son/ANN Carrillo phone number [phone]
--- NOTE | 2024-12-07 19:15 | PC.NURSE ---
report from Jagruit MAGALLON patient to MRI at this time
[2024-12-07 19:22] LABS: Cannabinoid Screen Urine Not Detected (Not Detect)
--- NOTE | 2024-12-07 21:00 | ECG_ITS ---
Test Reason : STROKE Blood Pressure : */* mmHG Vent. Rate : 84 BPM Atrial Rate : 84 BPM P-R Int : 160 ms QRS Dur : 88 ms QT Int : 364 ms P-R-T Axes : 50 -8 -27 degrees QTcB Int : 430 ms Normal sinus rhythm Nonspecific T wave abnormality Abnormal ECG No previous ECGs available Referred By: Kris Osborne Electronically Signed By: Keaton Maya
[2024-12-07] MEDS: Thiamine HCL 100 MG in 0.9 % Sodium Chloride 100 ML 202 MG IV (21:15)
--- NOTE | 2024-12-07 23:20 | PC.NURSE ---
Patient resting on stretcher. skin pwd, resp even and labored at 22. speaking in short sentences, speech sounds garbled although tailing hand at bedside and able to interpret. patient alert to and oriented to name at this time. neuro exam remains consistent w/ right upper extremity weakness, is squeezing w/ right hand with multiple prompts but unable to lift right arm off of stretcher. right leg remains flaccid. PERRLA
--- NOTE | 2024-12-07 23:30 | PC.NURSE ---
this rn assumed care of pt @ 2300 landscaping supervisor at bedside ciwa scale of 1 at this time . pt pending inpatient bed asssignment
[2024-12-08] VITALS (9 sets, daily range): BP systolic 129–148; BP diastolic 73–77; PULSE 60–621; RESP 16–22; TEMP 36.2–37.2; O2SAT 95–98; BMI 23.7
[2024-12-08 07:08] LABS: MANUAL DIFF FLAG NO
[2024-12-08 07:11] LABS: Hematocrit 44.3 % (42.0-52.0); Hemoglobin 15.1 g/dl (14.0-18.0); Imm Gran Abs Auto 0.04 X10*3/uL (0.00-0.03); Imm Gran Pct Auto 0.3 % (0.0-0.4); Lymphocytes Absolute Auto 2.2 X10*3/uL (1.2-4.9); Mean Corpuscular HGB Conc 34.1 g/dl (31.0-36.0); Mean Corpuscular Hemoglobin 30.1 pg (27.0-33.0); Mean Corpuscular Volume 88.2 fL (80.0-98.0); NRBC Abs Auto 0.000 X10*3/uL (0.0-0.012); NRBC Pct Auto 0.0 /100WBC (0.0-0.2); Platelet Count 246 X10*3/uL (160-400); Red Blood Count 5.02 X10*6/uL (4.60-5.80); White Blood Count 11.6 X10*3/uL (4.8-10.8)
[2024-12-08 07:37] LABS: Blood Urea Nitrogen 13 mg/dL (9-16); Calcium 8.6 mg/dL (8.4-10.2); Cholesterol 157 mg/dL (<200); Creatinine Clr Calc Pharmacy 51.9; Estimated Glomerular Filt Rate > 60; HDL Cholesterol 51 mg/dL (>40); Triglycerides 130 mg/dL (<150)
--- NOTE | 2024-12-08 07:51 | HO.PM.IMPN ---
Subjective Subjective Date of Service: 12/08/24 Interval History: F/u acute CVA with right sided weakness remains weak on right side and dysarthria Physical Exam Vital Signs: Vital Signs: Last Vital Signs Temp 97.1 F 12/08/24 07:43 Pulse 62 12/08/24 07:43 Resp 18 12/08/24 07:43 BP 141/77 H 12/08/24 07:43 Pulse Ox 98 12/08/24 07:43 O2 Del Method Room Air 12/08/24 07:43 O2 Flow Rate 98 12/08/24 07:43 BMI result Body Mass Index 23.7 Constitutional - Awake and Alert, No apparent distress. Heart - RRR, No murmurs Lungs - Normal lung expansion, Normal respiratory effort, No respiratory distress, CTA bilaterally Abdomen - NT / ND; +BS; No rebound or guarding Extremities - no calf tenderness bilaterally, no swelling Musculoskeletal - generalized atrophy Skin - Warm/Dry. No pallor. No jaundice. Neurological - Alert & oriented x3. Right facial droop. Mild dysarthria. Strength:RUE + RLE = 0/5; LUE + LLE = 5/5. Psychological - Depressed affect Objective Data Active Medications Aspirin (Aspirin Enteric Coated 81 Mg Tablet.) 81 mg PO DAILY [facility] Atorvastatin Calcium (Atorvastatin Calcium 80 Mg Tablet) 80 mg PO DAILY [facility] Last Admin: 12/07/24 21:17 Dose: Not Given Documented By: CHIDI Non-Admin Reason: NPO Enoxaparin Sodium (Enoxaparin Sodium 40 Mg/0.4 Ml Syringe) 40 mg SUBCUT Q24H [facility] Thiamine HCl 100 mg/ Sodium (Chloride) 101 mls @ 202 mls/hr IV DAILY [facility] Last Infusion: 12/07/24 21:50 Dose: Infused Documented By: CHIDI Folic Acid 1 mg/ Sodium (Chloride) 50.2 mls @ 100.4 mls/hr IV DAILY [facility] Multivitamins/Vitamin C (Multivitamin Tablet) 1 tab PO DAILY [facility] Ondansetron HCl (Ondansetron Hcl 4 Mg/2 Ml Vial) 4 mg IVPUSH Q8H PRN PRN Reason: Nausea and Vomiting Sodium Chloride (0.9 % Sodium Chloride Flush 3 Ml Syringe) 3 ml IVFLUSH QSHIFT [facility] Last Admin: 12/08/24 00:44 Dose: Not Given Documented By: ADAM Non-Admin Reason: IV Running Labs 12/08/24 06:32 12/08/24 06:32 Labs: Laboratory Results - last 24 hr 12/07/24 12/07/24 12/07/24 13:46 13:56 14:12 MCV 88.2 MCH 29.9 MCHC 33.9 RDW 15.7 Plt Count 303 MPV 8.9 L Immature Gran % (Auto) 1.5 H Neut % (Auto) 75.5 H Lymph % (Auto) 13.7 L [place] % (Auto) 7.7 Eos % (Auto) 0.7 Baso % (Auto) 0.9 Lymph # (Auto) 2.4 [place] # (Auto) 1.3 H Eos # (Auto) 0.1 Baso # (Auto) 0.2 Abs Immat Gran (auto) 0.25 H Absolute Neuts (auto) 12.9 H Absolute Nucleated RBC 0.000 Nucleated RBC % (auto) 0.0 PT 10.7 L Whole Blood PT 12.5 INR 0.9 Whole Blood INR 1.0 APTT 25.0 L VBG pH VBG pCO2 VBG pO2 VBG HCO3 VBG O2 Saturation VBG Base Excess Anion Gap 16 Estim Creat Clear Calc 32.4 Estimated GFR 38 POC Glucose 235 H Random Glucose 232 H Lactic Acid Calcium 9.0 D Total Bilirubin 0.5 Direct Bilirubin 0.2 AST 33 ALT 21 Alkaline Phosphatase 68 Total Creatine Kinase 113 B-Natriuretic Peptide < 10 Total Protein 6.9 Albumin 3.8 Triglycerides 295 H Cholesterol 193 LDL Cholesterol, Calc 79 HDL Cholesterol 55 Urine Opiates Screen Ur Buprenorphine Scrn Ur Oxycodone Screen Urine Methadone Screen Urine Fentanyl Screen Ur Barbiturates Screen Ur Phencyclidine Scrn Ur Amphetamines Screen U Benzodiazepines Scrn Urine Cocaine Screen U Marijuana (THC) Screen Ethyl Alcohol < 10 Influenza Type A (PCR) Influenza Type B (PCR) RSV RNA Qual (PCR) SARS-CoV-2 RNA (RT-PCR) 12/07/24 12/07/24 12/07/24 14:33 15:57 17:30 MCV MCH MCHC RDW Plt Count MPV Immature Gran % (Auto) Neut % (Auto) Lymph % (Auto) [place] % (Auto) Eos % (Auto) Baso % (Auto) Lymph # (Auto) [place] # (Auto) Eos # (Auto) Baso # (Auto) Abs Immat Gran (auto) Absolute Neuts (auto) Absolute Nucleated RBC Nucleated RBC % (auto) PT Whole Blood PT INR Whole Blood INR APTT VBG pH 7.34 VBG pCO2 46 VBG pO2 46 VBG HCO3 25 VBG O2 Saturation 72.0 VBG Base Excess -0.5 Anion Gap Estim Creat Clear Calc Estimated GFR POC Glucose Random Glucose Lactic Acid 1.3 Calcium Total Bilirubin Direct Bilirubin AST ALT Alkaline Phosphatase Total Creatine Kinase B-Natriuretic Peptide Total Protein Albumin Triglycerides Cholesterol LDL Cholesterol, Calc HDL Cholesterol Urine Opiates Screen Ur Buprenorphine Scrn Ur Oxycodone Screen Urine Methadone Screen Urine Fentanyl Screen Ur Barbiturates Screen Ur Phencyclidine Scrn Ur Amphetamines Screen U Benzodiazepines Scrn Urine Cocaine Screen U Marijuana (THC) Screen Ethyl Alcohol Influenza Type A (PCR) NEGATIVE Influenza Type B (PCR) NEGATIVE RSV RNA Qual (PCR) NEGATIVE SARS-CoV-2 RNA (RT-PCR) NEGATIVE 12/07/24 12/08/24 19:02 06:32 MCV 88.2 MCH 30.1 MCHC 34.1 RDW 15.9 Plt Count 246 MPV 9.2 L Immature Gran % (Auto) 0.3 Neut % (Auto) 66.8 Lymph % (Auto) 19.3 L [place] % (Auto) 10.8 Eos % (Auto) 1.9 Baso % (Auto) 0.9 Lymph # (Auto) 2.2 [place] # (Auto) 1.3 H Eos # (Auto) 0.2 Baso # (Auto) 0.1 Abs Immat Gran (auto) 0.04 H Absolute Neuts (auto) 7.7 Absolute Nucleated RBC 0.000 Nucleated RBC % (auto) 0.0 PT Whole Blood PT INR Whole Blood INR APTT VBG pH VBG pCO2 VBG pO2 VBG HCO3 VBG O2 Saturation VBG Base Excess Anion Gap Estim Creat Clear Calc 51.9 Estimated GFR > 60 POC Glucose Random Glucose 92 Lactic Acid Calcium 8.6 Total Bilirubin Direct Bilirubin AST ALT Alkaline Phosphatase Total Creatine Kinase B-Natriuretic Peptide Total Protein Albumin Triglycerides 130 Cholesterol 157 LDL Cholesterol, Calc 80 HDL Cholesterol 51 Urine Opiates Screen Not Detected Ur Buprenorphine Scrn Not Detected Ur Oxycodone Screen Not Detected Urine Methadone Screen Not Detected Urine Fentanyl Screen Not Detected Ur Barbiturates Screen Not Detected Ur Phencyclidine Scrn Not Detected Ur Amphetamines Screen Not Detected U Benzodiazepines Scrn Not Detected Urine Cocaine Screen Not Detected U Marijuana (THC) Screen Not Detected Ethyl Alcohol Influenza Type A (PCR) Influenza Type B (PCR) RSV RNA Qual (PCR) SARS-CoV-2 RNA (RT-PCR) Assessment and Plan (1) Acute CVA (cerebrovascular accident): Status: Acute Plan 69/F with HTN, HLD here eith Acute CVA Acute cerebrovascular accident (left thalamus and left occipital lobe) associated with left posterior cerebral artery with likely occlusion distally. This also right vertebral artery moderate stenosis. Telemetry to exclude AFIB NPO until swallow eval Aspirin 81 mg, Plavix 75 mg p.o. daily. Increase atorvastatin to 80 mg p.o. at bedtime when able. Neuro checks every 2 hours. OT/PT/speech and swallow evaluation and treatment. Stroke education. Echocardiogram. Brain MRI without contrast. Neurology consult. Leukocytosis, likely secondary to above. No other SIRS criteria. Urinalysis is negative for UTI. CXR is negative for pneumonia. Blood cultures obtained in the ED -will follow results. WBC down 17-->12 Hyperlipidemia. Continue statin. HTN Hold antihypertensive -permissive hypertension. Tobacco dependence. Tobacco cessation education. NRT History of chronic anemia. Hemoglobin is 16.4. We will continue to monitor. DVT prophylaxis: Lovenox. Code status: Full Discussed with patient's family, Zoe Leone, [id number] and informed about Jaswinder current medical issues; family is agreeable with plan. Patient will need hospitalization for at least 2 midnights for acute CVA treatment and evaluation; patient will need close monitoring of neurological status, antiplatelets therapy, statin evaluation by neurological service. Quality Stroke Does the patient have a stroke diagnosis?: No VTE Prior VTE?: No VTE Risk Level:: Medical - moderate - high VTE Device Contraindication: Treatment Not Indicated VTE Drug Contraindication: N/A - Med Ordered
[2024-12-08 07:57] LABS: Anion Gap 14 (12-20); Carbon Dioxide 24 mmol/L (22-29); Chloride 105 mmol/L (96-108); Potassium 3.8 mmol/L (3.3-5.1); Sodium 139 mmol/L (135-145)
--- NOTE | 2024-12-08 10:07 | PHA.MEDREC ---
Addendum entered by Rojas Oconnor [facility] 12/08/24 10:16: Clopidogrel was left unconfirmed, Dr. Boss was made aware. Original Note: Pharmacy Consult ? Medication Reconciliation Pharmacy has completed the medication reconciliation. Spoke to patient and son Reggie ([phone]) on the phone via slot router. Both patient and son were unsure and not able to name medications that patient is on. Patient kept saying he's on 5 medications which match with the fills of atorvastatin, atenolol, hydrochlorothiazide enalapril and citalopram (last fill 09/24/24 for 90 day supply). I asked both patient and son if patient is still taking clopidogrel/plavix and they were not able to confirm with me.
[2024-12-08] MEDS: Thiamine HCL 100 MG in 0.9 % Sodium Chloride 100 ML 202 MG IV (10:08)
[2024-12-08] MEDS: 0.9 % Sodium Chloride Flush 3 ML SYRINGE IVFLUSH ×2 (10:19→22:04)
--- NOTE | 2024-12-08 10:28 | PM.NEUROCN ---
History of Present Illness Data of Consult Service Date: 12/08/24 Primary Care Provider: PAPI Barragan HPI Reason for consult: Stroke 69 years old man with past medical history of hypertension hyperlipidemia and depression who came to hospital when he was found to be in tangled next to his bed. He was noted to have right-sided weakness. Onset of weakness was unclear and he could not be treated for acute stroke or be included an acute stroke protocols. His workup revealed a large left hemispheric infarct and occluded posterior cerebral artery. There was no sign of seizure or discomfort or pain. 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 Pure hypercholesterolemia Benign essential hypertension Family History Family History Father Medical history unknown Mother Medical history unknown Surgical History Surgical History History of cataract surgery Social History Social History Household Members: None Housing: Apartment Do you presently have visiting nurse or other home services: No Alcohol intake: current Alcohol intake frequency: 0-2 drinks per day Patient Tobacco Use Status: Former Tobacco user Tobacco use type: Cigarette Cigarette Packs Per Day: 1 Cigarettes Per Day: 20 e-Cigarette/Vaping Use: Never Used Second Hand Smoke Exposure: Yes Currently Displaying Signs/Symptoms of Drug Intoxication Withdrawal: No Have you been hit, kicked, punched, or otherwise hurt by someone within the past year? If so, by whom?: No Do you feel safe in your current relationship?: No Current Relationship Is there a partner from a previous relationship who is making you feel unsafe now?: No Are you made to feel afraid or neglected: No Advance Directives: No Advance Directives Information Provided: No Do you have a plan to hurt others: No Plan Recently lost weight without trying: No Eating poorly because of decreased appetite: No Poor oral hygiene: No service: No Current occupational status: retired Cognitive needs: Yes (walker) Hearing needs: No Vision needs: No Meds Allergies Allergy/AdvReac Type Severity Reaction Status Date / Time No Known Allergies Allergy Verified 12/07/24 14:08 Active Medications: Current Medications Aspirin (Aspirin Enteric Coated 81 Mg Tablet.) 81 mg PO DAILY [facility] Last Admin: 12/08/24 09:55 Dose: Not Given Atorvastatin Calcium (Atorvastatin Calcium 80 Mg Tablet) 80 mg PO DAILY [facility] Last Admin: 12/08/24 09:55 Dose: Not Given Clopidogrel Bisulfate (Clopidogrel Bisulfate 75 Mg Tablet) 75 mg PO DAILY [facility] Last Admin: 12/08/24 09:56 Dose: Not Given Enoxaparin Sodium (Enoxaparin Sodium 40 Mg/0.4 Ml Syringe) 40 mg SUBCUT Q24H [facility] Last Admin: 12/08/24 10:10 Dose: 40 mg Thiamine HCl 100 mg/ Sodium (Chloride) 101 mls @ 202 mls/hr IV DAILY [facility] Last Admin: 12/08/24 10:08 Dose: 202 mls/hr Folic Acid 1 mg/ Sodium (Chloride) 50.2 mls @ 100.4 mls/hr IV DAILY [facility] Morphine Sulfate (Morphine Sulfate 2 Mg/Ml Cartridge) 2 mg IVPUSH Q4H PRN; Protocol PRN Reason: Pain, Severe (Pain Scale 7-10) Last Admin: 12/08/24 10:13 Dose: 2 mg Multivitamins/Vitamin C (Multivitamin Tablet) 1 tab PO DAILY [facility] Last Admin: 12/08/24 09:55 Dose: Not Given Ondansetron HCl (Ondansetron Hcl 4 Mg/2 Ml Vial) 4 mg IVPUSH Q8H PRN PRN Reason: Nausea and Vomiting Sodium Chloride (0.9 % Sodium Chloride Flush 3 Ml Syringe) 3 ml IVFLUSH QSHIFT [facility] Last Admin: 12/08/24 10:19 Dose: 3 ml Physical Exam Vital Signs: Vital Signs: Last Vital Signs Temp 97.1 F 12/08/24 07:43 Pulse 62 12/08/24 07:43 Resp 18 12/08/24 07:43 BP 141/77 H 12/08/24 07:43 Pulse Ox 98 12/08/24 07:43 O2 Del Method Room Air 12/08/24 07:43 O2 Flow Rate 98 12/08/24 07:43 BMI result Body Mass Index 23.7 Neuro: Other: He is alert and awake sometime comprehending and sometime not. He could not move his right arm or leg and right plantars was extensor. Face was somewhat pendulous. Visual terrell were difficult to interpret. He told me his name, repeated simple words, and named simple objects. Results Labs 12/08/24 06:32 12/08/24 06:32 Labs: Short CBC 12/07/24 12/08/24 Range/Units 13:56 06:32 WBC 17.1 H 11.6 H (4.8-10.8) X10*3/uL Hgb 16.4 D 15.1 (14.0-18.0) g/dl Hct 48.4 D 44.3 (42.0-52.0) % Plt Count 303 246 (160-400) X10*3/uL BMP 12/07/24 12/08/24 13:56 06:32 Sodium 134 L 139 Potassium 3.8 3.8 Chloride 101 105 Carbon Dioxide 21 L 24 BUN 17 H 13 Creatinine 1.78 H 1.11 Calcium 9.0 D 8.6 Cardiac Enzymes 12/07/24 Range/Units 13:56 Total Creatine Kinase 113 (38-174) U/L Liver Function 12/07/24 Range/Units 13:56 Total Bilirubin 0.5 (0.0-1.0) mg/dL Direct Bilirubin 0.2 (0.0-0.5) mg/dL AST 33 (5-37) U/L ALT 21 (0-40) U/L Alkaline Phosphatase 68 (39-117) U/L Albumin 3.8 (3.5-5.0) g/dL His MRI of brain revealed a large left posterior cerebral artery area ischemic infarct involving occipital lobe and thalamus. CTA revealed occluded left posterior cerebral artery and also right vertebral artery disease. Assessment and Plan (1) Stroke due to embolism of posterior cerebral artery: Qualifiers: Laterality of affected vessel: left Qualified Code(s): I63.432 - Cerebral infarction due to embolism of left posterior cerebral artery Status: Acute 69 years old man with an acute large left posterior cerebral artery area infarct resulting in injury to occipital lobe and thalamus resulting in dense right hemiparesis and probably also visual field and language difficulty. Mainstay of management is nursing care and rehab. Because of the size of stroke, he might be left with significant disability. Appropriate placement is recommended. As far as further prevention of stroke is concerned, continue anti-platelet agent with blood pressure control. Physical therapy, occupational therapy, and speech and swallowing evaluation consultations are recommended. Also start him on small dose of sertraline leg 25 mg daily as patient with this kind of pathology typically can get into significant depression. Procedures Date of Service Date of Service: 12/08/24
--- NOTE | 2024-12-08 11:04 | MHC.CM.PN ---
IMM 12/08/24, Pt. is SSO, he was vague in answering questions, he gave me permission to call him son Reggie / HCP. Reggie lives in [place], ph: [phone]. Pt. lives alone, he has services of help with household tasks and money management. Nichoronal (also SSO) did not know the details of the services, asked CM to call him back on Monday, mid day, he is going to find out more by then. Pt. confirmed PCP: Sam Gonzales, and HCP: Genaro. DCP: likely acute or STR. CM to follow for DC needs.
[2024-12-08] MEDS: Lactated Ringers 1,000 ML 125 ML IVCONT ×2 (11:48→18:41)
--- NOTE | 2024-12-08 11:53 | MHC.SL.SWA ---
Speech Pathologist Impression: Risk of Aspiration, Oropharyngeal Dysphagia Risk of Aspiration Due to: New CVA Dysphasia Diet Status: No Change Liquid Consistency and Strategies for Safe Swallow: Liquid Intake Recommendation: NPO Solid Food Consistency: Dietary Recommendations: NPO Additional Modifications to Solid Foods: Patient presents w/ overt clinical signs of aspiration on trace PO (pudding thick & thin consistencies trialed via teaspoon). Patient w/ prolonged coughing fit & turning red in the face. Recommend continue NPO strict, patient at elevated risk of aspiration, in the setting of acute CVA in the L-thalamus and L-occipital lobe. Provide oral care for hygiene, oral moisture, and comfort. [facility] to re-evaluate tomorrow morning. Oral Medication Intake: NPO Please contact the pharmacy regarding appropriate crushable or liquid drug formulations that are available whenever modified delivery is recommended. Supervision While Eating and Drinking for Safe Swallow: PO with [facility] [place] Recommendation for Speech: Inpatient Speech Therapy Modified Barium Swallow Study - Inpatient Comment: [facility] to re-evaluate at bedside tomorrow a.m. Further testing w/ instrumental exam (MBSS) may be indicated, w/ consideration of alternative nutrition (temporary vs. long-term) if there is no improvement. Roller Stainer Clinican/Clinical Fellow: No Supervisory Statement: I have reviewed and agree with the student/clinical fellow's documentation: N/A Speech Language Pathologist: Lavinia David M.A., [facility]
[2024-12-09] MEDS: Lactated Ringers 1,000 ML 125 ML IVCONT ×3 (03:33→20:24)
[2024-12-09 03:43] VITALS: BP 141/76; PULSE 65; RESP 16; TEMP 36.6; O2SAT 97
--- NOTE | 2024-12-09 07:00 | CA_ITS ---
Transthoracic Echocardiogram Patient (Last, First, Middle): Jaswinder Kumar, Gender: Male Date of : 1955 Age: 69 Procedure Date: 12/09/2024 Procedure Type: Transthoracic Echocardiogram Location: [facility] [place] Height: 160.02 cm Weight: 60.33 kg BSA: 1.63 m2 Heart Rate: bpm BP: 141 / 76 mmHg Director Of Early Childhood: Referring MD: Kris Osborne MD Gastroenterology Technician: Johnny Guadalupe MD Symptoms: Acute CVA Study Quality: Adequate ECG Rhythm: Sinus Conclusions: - 1. Normal LV ejection fraction of 60 65% with mild LVH 2. Normal cardiac valvular Dopplers 3. Mildly dilated ascending aorta at 3.7 cm 4. No gross pericardial effusion Findings Left Ventricle Normal left ventricular size and systolic function. There is mildly increased left ventricular wall thickness. The visually estimated ejection fraction is between 60-65%. Spectral Doppler is indicative of an impaired relaxation filling pattern. E/E prime ratio is between 8 and 15 consistent with indeterminate filling pressures. Right Ventricle Normal right ventricular cavity size and systolic function. Atria The left atrium is normal in size. There is lipomatous hypertrophy of the interatrial septum. There is no evidence of interatrial shunt. The right atrium is normal in size. Aortic Valve Normal aortic valve structure and function. There is no aortic valve stenosis. There is no aortic valve regurgitation. Mitral Valve Normal mitral valve structure and function. There is trace mitral valve regurgitation. There is no mitral valve stenosis. Pulmonic Valve The pulmonic valve is likely normal. Tricuspid Valve Likely normal tricuspid valve structure and function. Tricuspid regurgitation envelope is inadequate for calculation of right ventricular systolic pressure. Normal right atrial pressure. Great Vessels The pulmonary artery was not well visualized. There is mild dilatation of the ascending aorta measuring 3.70 cm. Venous The inferior vena cava is normal in size and collapses greater than 50% with inspiration. Pericardium/Pleural There is no evidence of pericardial effusion. Prior Study Comparison No prior study available for comparison. Measurements 2D Linear Measurements IVSd: 1.24 0.6-0.9/0.6-1.0 cm LVIDd: 4.09 3.9-5.3/4.2-5.9 cm LVIDd Index: 2.51 2.4-3.2/2.2-3.1 cm/m2 LVIDs: 2.17 2.0-3.6 cm LVPWd: 1.26 0.7-1.1 cm Ao Root: 3.10 2.1-3.5 cm LA Diam: 2.80 2.7-3.8/3.0-4.0 cm LAIDs Index: 1.72 1.5-2.3 cm/m2 LV Mass: 226.48 67-162/88-224 g LV Mass Index: 138.95 43-95/49-115 g/m2 LVOT Diam: 2.00 3.0+(-)1.3 cm 2D Systolic Function EF 4C: 59.10 >55% EF 2C: 68.30 >55% EF BiP: 64.40 >55% Mitral Valve MV Pk E: 0.68 MV PK A: 0.95 MV Decel Time: 241.00 E/A: 0.70 E'Lateral: 7.29 E'Medial: 6.31 E/E' Med: 10.70 E/E' Lat: 9.30 PHT: 71.00 MVA PHT: 3.10 Decel [place]: 2.81 Aortic Valve AoV Pk Kirill: 1.57 AoV Mn Kirill: 1.01 AoV VTI: 0.33 AoV Pk Grad: 10.00 Aov Mn Grad: 5.00 JAELYN Cont.VTI: 2.66 LVOT LVOT Pk Kirill: 1.25 LVOT Mn Kirill: 0.71 LVOT VTI: 0.28 LVOT Pk Grad: 6.00 LVOT Mn Grad: 3.00 LVOT Diam: 2.00 LVOT Area: 3.14 Diastolic Function MV Pk E: 0.68 MV Pk A: 0.95 E/A: 0.70 E'Medial: 6.31 E/E' Med: 10.70 E' Laterial: 7.29 E/E' Lat: 9.30 Right Ventricle TAPSE (mm): 31.00 Tricuspid Valve TR Pk Kirill: 1.57 TR Pk Grad: 10.00 Great Vessels Aorta Ao Root-2D: 3.10 2.0-3.7 cm Ao Asc: 3.70 2.1-3.4 cm Pulmonary Valve PV Pk Kirill: 0.90 Peak PV Grad: 3.00 Updated in Other Vendor System with Status of Final Johnny Guadalupe MD electronically signed on 12/09/2024 3:25:06 PM with status of Final
[2024-12-09 08:00] VITALS: BP 147/72; PULSE 79; RESP 18; TEMP 36.1; O2SAT 95
[2024-12-09] MEDS: Thiamine HCL 100 MG in 0.9 % Sodium Chloride 100 ML 202 MG IV (09:25)
--- NOTE | 2024-12-09 10:43 | P.PNIM_ITS ---
Subjective Subjective Date of Service: 12/09/24 Interval History: F/u acute CVA with right sided weakness remains weak on right side and dysarthria seem beter Physical Exam 2 Vital Signs: Vital Signs: Last Vital Signs Temp 97.0 F 12/09/24 08:00 Pulse 79 12/09/24 08:00 Resp 18 12/09/24 08:00 BP 147/72 H 12/09/24 08:00 Pulse Ox 95 12/09/24 08:00 O2 Del Method Room Air 12/09/24 08:00 O2 Flow Rate 98 12/08/24 07:43 BMI result Body Mass Index 23.7 Constitutional - Awake and Alert, No apparent distress. Heart - RRR, No murmurs Lungs - Normal lung expansion, Normal respiratory effort, No respiratory distress, CTA bilaterally Abdomen - NT / ND; +BS; No rebound or guarding Extremities - no calf tenderness bilaterally, no swelling Musculoskeletal - generalized atrophy Skin - Warm/Dry. No pallor. No jaundice. Neurological - Alert & oriented x3. Right facial droop. Mild dysarthria. Right hemiplegia Psychological - Depressed affect Neuro: Other: He is alert and awake sometime comprehending and sometime not. He could not move his right arm or leg and right plantars was extensor. Face was somewhat pendulous. Visual terrell were difficult to interpret. He told me his name, repeated simple words, and named simple objects. Objective Data Active Medications Aspirin (Aspirin Enteric Coated 81 Mg Tablet.) 81 mg PO DAILY [facility] Last Admin: 12/09/24 09:40 Dose: Not Given Documented By: THOMAS Non-Admin Reason: NPO Atorvastatin Calcium (Atorvastatin Calcium 80 Mg Tablet) 80 mg PO DAILY [facility] Last Admin: 12/09/24 09:40 Dose: Not Given Documented By: THOMAS Non-Admin Reason: NPO Clopidogrel Bisulfate (Clopidogrel Bisulfate 75 Mg Tablet) 75 mg PO DAILY [facility] Last Admin: 12/09/24 09:40 Dose: Not Given Documented By: THOMAS Non-Admin Reason: NPO Enoxaparin Sodium (Enoxaparin Sodium 40 Mg/0.4 Ml Syringe) 40 mg SUBCUT Q24H [facility] Last Admin: 12/09/24 09:25 Dose: 40 mg Documented By: THOMAS Thiamine HCl 100 mg/ Sodium (Chloride) 101 mls @ 202 mls/hr IV DAILY [facility] Last Infusion: 12/09/24 10:00 Dose: Infused Documented By: THOMAS Folic Acid 1 mg/ Sodium (Chloride) 50.2 mls @ 100.4 mls/hr IV DAILY [facility] Last Admin: 12/09/24 10:35 Dose: 100.4 mls/hr Documented By: THOMAS Lactated Ringer's (Lr) 1,000 mls @ 125 mls/hr IVCONT .Q8H [facility] Last Admin: 12/09/24 03:33 Dose: 125 mls/hr Documented By: CATERINA Morphine Sulfate (Morphine Sulfate 2 Mg/Ml Cartridge) 2 mg IVPUSH Q4H PRN; Protocol PRN Reason: Pain, Severe (Pain Scale 7-10) Last Admin: 12/08/24 22:03 Dose: 2 mg Documented By: CATERINA Multivitamins/Vitamin C (Multivitamin Tablet) 1 tab PO DAILY [facility] Last Admin: 12/09/24 09:41 Dose: Not Given Documented By: THOMAS Non-Admin Reason: NPO Ondansetron HCl (Ondansetron Hcl 4 Mg/2 Ml Vial) 4 mg IVPUSH Q8H PRN PRN Reason: Nausea and Vomiting Sodium Chloride (0.9 % Sodium Chloride Flush 3 Ml Syringe) 3 ml IVFLUSH QSHIFT [facility] Last Admin: 12/09/24 09:40 Dose: Not Given Documented By: THOMAS Non-Admin Reason: IV Running Labs 12/08/24 06:32 12/08/24 06:32 Labs: Laboratory Results - last 24 hr 12/07/24 12/07/24 12/07/24 13:46 13:56 14:12 MCV 88.2 MCH 29.9 MCHC 33.9 RDW 15.7 Plt Count 303 MPV 8.9 L Immature Gran % (Auto) 1.5 H Neut % (Auto) 75.5 H Lymph % (Auto) 13.7 L [place] % (Auto) 7.7 Eos % (Auto) 0.7 Baso % (Auto) 0.9 Lymph # (Auto) 2.4 [place] # (Auto) 1.3 H Eos # (Auto) 0.1 Baso # (Auto) 0.2 Abs Immat Gran (auto) 0.25 H Absolute Neuts (auto) 12.9 H Absolute Nucleated RBC 0.000 Nucleated RBC % (auto) 0.0 PT 10.7 L Whole Blood PT 12.5 INR 0.9 Whole Blood INR 1.0 APTT 25.0 L VBG pH VBG pCO2 VBG pO2 VBG HCO3 VBG O2 Saturation VBG Base Excess Anion Gap 16 Estim Creat Clear Calc 32.4 Estimated GFR 38 POC Glucose 235 H Random Glucose 232 H Lactic Acid Calcium 9.0 D Total Bilirubin 0.5 Direct Bilirubin 0.2 AST 33 ALT 21 Alkaline Phosphatase 68 Total Creatine Kinase 113 B-Natriuretic Peptide < 10 Total Protein 6.9 Albumin 3.8 Triglycerides 295 H Cholesterol 193 LDL Cholesterol, Calc 79 HDL Cholesterol 55 Urine Opiates Screen Ur Buprenorphine Scrn Ur Oxycodone Screen Urine Methadone Screen Urine Fentanyl Screen Ur Barbiturates Screen Ur Phencyclidine Scrn Ur Amphetamines Screen U Benzodiazepines Scrn Urine Cocaine Screen U Marijuana (THC) Screen Ethyl Alcohol < 10 Influenza Type A (PCR) Influenza Type B (PCR) RSV RNA Qual (PCR) SARS-CoV-2 RNA (RT-PCR) 12/07/24 12/07/24 12/07/24 14:33 15:57 17:30 MCV MCH MCHC RDW Plt Count MPV Immature Gran % (Auto) Neut % (Auto) Lymph % (Auto) [place] % (Auto) Eos % (Auto) Baso % (Auto) Lymph # (Auto) [place] # (Auto) Eos # (Auto) Baso # (Auto) Abs Immat Gran (auto) Absolute Neuts (auto) Absolute Nucleated RBC Nucleated RBC % (auto) PT Whole Blood PT INR Whole Blood INR APTT VBG pH 7.34 VBG pCO2 46 VBG pO2 46 VBG HCO3 25 VBG O2 Saturation 72.0 VBG Base Excess -0.5 Anion Gap Estim Creat Clear Calc Estimated GFR POC Glucose Random Glucose Lactic Acid 1.3 Calcium Total Bilirubin Direct Bilirubin AST ALT Alkaline Phosphatase Total Creatine Kinase B-Natriuretic Peptide Total Protein Albumin Triglycerides Cholesterol LDL Cholesterol, Calc HDL Cholesterol Urine Opiates Screen Ur Buprenorphine Scrn Ur Oxycodone Screen Urine Methadone Screen Urine Fentanyl Screen Ur Barbiturates Screen Ur Phencyclidine Scrn Ur Amphetamines Screen U Benzodiazepines Scrn Urine Cocaine Screen U Marijuana (THC) Screen Ethyl Alcohol Influenza Type A (PCR) NEGATIVE Influenza Type B (PCR) NEGATIVE RSV RNA Qual (PCR) NEGATIVE SARS-CoV-2 RNA (RT-PCR) NEGATIVE 12/07/24 12/08/24 19:02 06:32 MCV 88.2 MCH 30.1 MCHC 34.1 RDW 15.9 Plt Count 246 MPV 9.2 L Immature Gran % (Auto) 0.3 Neut % (Auto) 66.8 Lymph % (Auto) 19.3 L [place] % (Auto) 10.8 Eos % (Auto) 1.9 Baso % (Auto) 0.9 Lymph # (Auto) 2.2 [place] # (Auto) 1.3 H Eos # (Auto) 0.2 Baso # (Auto) 0.1 Abs Immat Gran (auto) 0.04 H Absolute Neuts (auto) 7.7 Absolute Nucleated RBC 0.000 Nucleated RBC % (auto) 0.0 PT Whole Blood PT INR Whole Blood INR APTT VBG pH VBG pCO2 VBG pO2 VBG HCO3 VBG O2 Saturation VBG Base Excess Anion Gap Estim Creat Clear Calc 51.9 Estimated GFR > 60 POC Glucose Random Glucose 92 Lactic Acid Calcium 8.6 Total Bilirubin Direct Bilirubin AST ALT Alkaline Phosphatase Total Creatine Kinase B-Natriuretic Peptide Total Protein Albumin Triglycerides 130 Cholesterol 157 LDL Cholesterol, Calc 80 HDL Cholesterol 51 Urine Opiates Screen Not Detected Ur Buprenorphine Scrn Not Detected Ur Oxycodone Screen Not Detected Urine Methadone Screen Not Detected Urine Fentanyl Screen Not Detected Ur Barbiturates Screen Not Detected Ur Phencyclidine Scrn Not Detected Ur Amphetamines Screen Not Detected U Benzodiazepines Scrn Not Detected Urine Cocaine Screen Not Detected U Marijuana (THC) Screen Not Detected Ethyl Alcohol Influenza Type A (PCR) Influenza Type B (PCR) RSV RNA Qual (PCR) SARS-CoV-2 RNA (RT-PCR) Microbiology Microbiology Results: Microbiology 12/07/24 17:39 Blood Culture - Preliminary Blood - Venous No growth after 24 hours. 12/07/24 17:30 Blood Culture - Preliminary Blood - Venous No growth after 24 hours. Assessment and Plan (1) Acute CVA (cerebrovascular accident): Status: Acute Plan 69/F with HTN, HLD here eith Acute CVA Acute cerebrovascular accident (left thalamus and left occipital lobe) associated with left posterior cerebral artery with likely occlusion distally. This also right vertebral artery moderate stenosis Brain MRI: . Acute infarcts in the left thalamus, left occipital lobe and left inferior medial temporal lobe Telemetry to exclude AFIB Aspirin 81 mg, Plavix 75 mg p.o. daily. atorvastatin to 80 mg p.o. at bedtime when able. OT/PT/speech and swallow evaluation and treatment. Stroke education. Echocardiogram. Neuro recommend med management and rehab ELECTRICIAN HELPER rec NDD1 and Nect thick liquid Leukocytosis, likely secondary to above. No other SIRS criteria. Urinalysis is negative for UTI. CXR is negative for pneumonia. Blood cultures obtained in the ED -will follow results. WBC down 17-->12 Hyperlipidemia. Continue statin. HTN Hold antihypertensive -permissive hypertension. Tobacco dependence. Tobacco cessation education. NRT History of chronic anemia. Hemoglobin is 16.4. We will continue to monitor. DVT prophylaxis: Lovenox. Code status: Full Discussed with patient's family, Zoe Leone, [id number] and informed about Jaswinder current medical issues; family is agreeable with plan. Patient will need hospitalization for at least 2 midnights for acute CVA treatment and evaluation; patient will need close monitoring of neurological status, antiplatelets therapy, statin evaluation by neurological service. Quality Stroke Does the patient have a stroke diagnosis?: No VTE Prior VTE?: No VTE Risk Level:: Medical - moderate - high VTE Device Contraindication: Treatment Not Indicated VTE Drug Contraindication: N/A - Med Ordered
--- NOTE | 2024-12-09 10:47 | MHC.CM.PN ---
Addendum entered by Kenia Nichols 12/09/24 15:55: STR bed offer received from [facility] [place], they will have a bed available for the pt tomorrow, ambulance is pre-booked for 2pm tomorrow. This CM called pts son/HCP Reggie with [employer] principal hardware architect services, Reggie was updated on his fathers discharge plan for tomorrow, he is in agreement with the plan. Original Note: This CM met with pt with the assistance of a principal hardware architect to discuss PT recommendations for STR. Per pt, he requested this CM speak to his son/HCP Reggie about it. This CM placed call to pts son Reggie with the principal hardware architect present to discuss STR options. Per Reggie, he would like his father to go to rehab closer to where he lives in [place]. STR referrals sent out to [place] facilities in [facility], awaiting bed offer.
--- NOTE | 2024-12-09 11:07 | MHC.SL.SWA ---
Speech Pathologist Impression: Mild to moderate oral phase dysphagia, significant pharyngeal phase dysphagia d/t R sided oromotor weakness Risk of Aspiration Due to: Significance and severity of recent CVA Degree of R sided weakness Dysphasia Diet Status: Liquid Consistency and Strategies for Safe Swallow: Liquid Intake Recommendation: [place] Thick Liquid Intake Strategies: Small Sips No Straws Solid Food Consistency: Dietary Recommendations: Pureed (NDD1) Additional Modifications to Solid Foods: Oral Medication Intake: Crushed with Puree Please contact the pharmacy regarding appropriate crushable or liquid drug formulations that are available whenever modified delivery is recommended. Compensatory Strategies and Precautions to be Taken for Safe Swallow: Sitting Upright (90 deg) No Straw Small Bites and Sips Rate of Ingestion Change Oral Check Supervision While Eating and Drinking for Safe Swallow: Total Assistance (1:1) Foods to Avoid: Swallowing Recommended Treatments: Oral Motor Exercises Compens. Strategy Educat. Recommendation for Speech: Inpatient Speech Therapy Modified Barium Swallow Study - Inpatient Comment: Pt in acute phase of CVA recovery (infarct in the L-thalamus and L-occipital lobe). Pt tolerated sips of NTL and tsps of puree with mild to moderate anterior loss d/t R sided oromotor weakness. Pt needs 1:1 assist to eat d/t R geni, recc meds crushed in puree. PERSONAL CARE SERVICE PROVIDER tx indicated to address dysphagia, aphasia and dysarthria. Frequency/Duration: Date Range for Service Req: Timeline to reassess: Kennel Hand Clinican/Clinical Fellow: No Supervisory Statement: I have reviewed and agree with the student/clinical fellow's documentation: N/A Speech Language Pathologist: Nayeli You M.S., CCC-PERSONAL CARE SERVICE PROVIDER
[2024-12-09 12:00] VITALS: BP 120/57; PULSE 67; RESP 18; TEMP 36.8; O2SAT 97
[2024-12-09] MEDS: Aspirin Enteric Coated 81 MG TABLET.DR PO (12:45)
--- NOTE | 2024-12-09 13:49 | MHC.STROKE ---
Attempted to engage patient in stroke education. Pt unable to participate at this time. Will need reinforcement. Will attempt to reach family to see if there are any questions regarding his diagnosis/care.
[2024-12-09 16:00] VITALS: BP 140/80; PULSE 83; RESP 18; TEMP 37.1; O2SAT 96
[2024-12-09 20:00] VITALS: BP 138/74; PULSE 84; RESP 20; TEMP 37.1; O2SAT 95
[2024-12-09] MEDS: 0.9 % Sodium Chloride Flush 3 ML SYRINGE IVFLUSH (20:25)
[2024-12-10] VITALS: BP 129/62; PULSE 62; RESP 20; TEMP 36.7; O2SAT 97
[2024-12-10 04:00] VITALS: BP 146/74; PULSE 64; RESP 20; TEMP 36.6; O2SAT 95
[2024-12-10] MEDS: Lactated Ringers 1,000 ML 125 ML IVCONT (04:06)
[2024-12-10 06:52] LABS: Hematocrit 40.6 % (42.0-52.0); Hemoglobin 13.6 g/dl (14.0-18.0); Mean Corpuscular HGB Conc 33.5 g/dl (31.0-36.0); Mean Corpuscular Hemoglobin 30.1 pg (27.0-33.0); Mean Corpuscular Volume 89.8 fL (80.0-98.0); NRBC Abs Auto 0.000 X10*3/uL (0.0-0.012); NRBC Pct Auto 0.0 /100WBC (0.0-0.2); Platelet Count 228 X10*3/uL (160-400); Red Blood Count 4.52 X10*6/uL (4.60-5.80); White Blood Count 8.8 X10*3/uL (4.8-10.8)
[2024-12-10 07:02] LABS: Anion Gap 8 (12-20); Blood Urea Nitrogen 8 mg/dL (9-16); Calcium 7.9 mg/dL (8.4-10.2); Carbon Dioxide 28 mmol/L (22-29); Chloride 106 mmol/L (96-108); Creatinine Clr Calc Pharmacy 71.2; Estimated Glomerular Filt Rate > 60; Potassium 3.2 mmol/L (3.3-5.1); Sodium 139 mmol/L (135-145)
[2024-12-10] MEDS: Aspirin Enteric Coated 81 MG TABLET.DR PO (07:26)
[2024-12-10] MEDS: Thiamine HCL 100 MG in 0.9 % Sodium Chloride 100 ML 202 MG IV (07:27)
[2024-12-10 07:49] VITALS: BP 132/82; PULSE 63; RESP 18; TEMP 36.4; O2SAT 98
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
[2024-12-10 11:18] VITALS: BP 140/73; PULSE 66; RESP 18; TEMP 36.6; O2SAT 96
--- NOTE | 2024-12-10 11:33 | MHC.CM.PN ---
Pt is medically cleared for discharge to [facility] at [facility] today, he will transport there via BLS/[facility]. Pts son/HCP Reggie is aware of the discharge plan.
--- NOTE | 2024-12-10 11:39 | PC.NURSE ---
Nurse to Nurse report given to Sunshine, director of outpatient services at [place], [place]. HCP was sent electronically and copy attached to discharge paperwork.
--- NOTE | 2024-12-10 14:58 | MHC.SL.SWA ---
Risk of Aspiration Due to: acute CVA Dysphasia Diet Status: NDD1/nectar thick Liquid Consistency and Strategies for Safe Swallow: Liquid Intake Recommendation: [place] Thick Liquid Intake Strategies: Small Sips No Straws Liquids by Teaspoon Only Solid Food Consistency: Dietary Recommendations: Pureed (NDD1) Oral Medication Intake: Crushed with Puree Please contact the pharmacy regarding appropriate crushable or liquid drug formulations that are available whenever modified delivery is recommended. Compensatory Strategies and Precautions to be Taken for Safe Swallow: Sitting Upright (90 deg) Double Swallow No Straw Liquids from Spoon Small Bites and Sips Rate of Ingestion Change Oral Check Supervision While Eating and Drinking for Safe Swallow: Total Assistance (1:1) Swallowing Recommended Treatments: Oral Motor Exercises Compens. Strategy Educat. Recommendation for Speech: Inpatient Speech Therapy Modified Barium Swallow Study - Inpatient Comment: Recommend pt continue w/ puree solids and nectar thick liquids via TEASPOON only. 1-1 assist as needed. Meds crushed in puree. Recommend LAP WINDING MACHINE OPERATOR tx at next level of care for dysphagia, aphasia, and dysarthria. Pt may benefit from instrumental evaluation to rule in/out silent aspiration and get better picture of pt's swallow. Recommendations sent to RN and MD. This clinician called to relay message to Sunshine at [facility] given pt pending d/c this afternoon. Bin Operator Clinican/Clinical Fellow: No Supervisory Statement: I have reviewed and agree with the student/clinical fellow's documentation: N/A Speech Language Pathologist: Shayy Heaton M.A., [facility]-LAP WINDING MACHINE OPERATOR
== END 2024-12-10 15:30 | DRG 65 ==
LOC: HO.ED 18:59 → HO.EDOVER 20:51 → HO.IMC 12-08 00:03
PROVIDERS: Admitting Provider Internal Medicine; Emergency Provider Emergency Medicine; Visit Provider Internal Medicine
DX: I63.532 Cerebral infarction due to unspecified occlusion or stenosis of left posterior cerebral artery (principal); G81.91 Hemiplegia, unspecified affecting right dominant side; E78.5 Hyperlipidemia, unspecified; I10 Essential (primary) hypertension; R29.713 NIHSS score 13; R47.81 Slurred speech; D64.9 Anemia, unspecified; F17.210 Nicotine dependence, cigarettes, uncomplicated; Z71.6 Tobacco abuse counseling; Z79.02 Long term (current) use of antithrombotics/antiplatelets; Z79.899 Other long term (current) drug therapy
CPT/HCPCS: 36415; 70450; 70496; 70498; 70551; 71045; 80048; 80061; 80076; 80307; 82550; 82803; 82947; 83605; 83880; 84484; 85025; 85027; 85610; 85730; 87040; 87637; 92526; 92610; 93005; 93306; 97163; 97167; 97530; 99285; J0131; J0692; J1650; J1808; J2270; J3411; J7120; Q9967

== ENCOUNTER → 2024-12-07 13:42 | Outpatient (BNV) | payer MEDICARE, MEDICAID, SELFPAY | PROVIDERS: Admitting Provider Internal Medicine; Emergency Provider Emergency Medicine; Visit Provider Internal Medicine Cardiovascular Disease | DX: R94.31 Abnormal electrocardiogram [ECG] [EKG] (principal); I63.9 Cerebral infarction, unspecified | CPT/HCPCS: 93010 ==

== ENCOUNTER → 2024-12-07 13:45 | Outpatient (BNV) | payer MEDICARE, MEDICAID, SELFPAY | PROVIDERS: Emergency Provider Emergency Medicine; Visit Provider Radiology Diagnostic Radiology | DX: R53.1 Weakness (principal); G81.91 Hemiplegia, unspecified affecting right dominant side; R09.89 Other specified symptoms and signs involving the circulatory and respiratory systems; I65.01 Occlusion and stenosis of right vertebral artery; I63.532 Cerebral infarction due to unspecified occlusion or stenosis of left posterior cerebral artery; W19.XXXA Unspecified fall, initial encounter; R47.1 Dysarthria and anarthria | CPT/HCPCS: 70450; 70496; 70498; 71045 ==

== ENCOUNTER → 2024-12-07 14:47 | Outpatient (BNV) | payer MEDICARE, MEDICAID, SELFPAY | PROVIDERS: Emergency Provider Emergency Medicine; Visit Provider Internal Medicine | DX: I63.9 Cerebral infarction, unspecified (principal); D72.829 Elevated white blood cell count, unspecified | CPT/HCPCS: 99223; 99232 ==

== ENCOUNTER 2024-12-07 17:26 | Outpatient (BNV) | payer MEDICARE, MEDICAID, SELFPAY | END 2024-12-09 07:00 | PROVIDERS: Admitting Provider Internal Medicine; Emergency Provider Emergency Medicine; Visit Provider Internal Medicine Cardiovascular Disease | DX: I63.9 Cerebral infarction, unspecified (principal); I77.810 Thoracic aortic ectasia | CPT/HCPCS: 93306 ==

== ENCOUNTER → 2024-12-07 17:26 | Outpatient (BNV) | payer MEDICARE, MEDICAID, SELFPAY | PROVIDERS: Admitting Provider Internal Medicine; Emergency Provider Emergency Medicine; Visit Provider Psychiatry & Neurology Neurology | DX: I63.432 Cerebral infarction due to embolism of left posterior cerebral artery (principal) | CPT/HCPCS: 99222 ==